=== PATIENT | female | born 1975 | race Caucasian/White ===

== ENCOUNTER 2016-03-26 12:42 | Emergency (ER) | payer OTHER ==
[~2016-03-26] VITALS: Ht 165.1 cm; Wt 70.0 kg
[~2016-03-26 12:42] MED LIST: IBUP-238 PO; PERC5TAB12 PO; PRENTAB72 PO; RANI150C PO; SENN1TAB11 PO
[2016-03-26 12:44] VITALS: BP 189/102; PULSE 82; RESP 12; TEMP 98; O2SAT 100
--- NOTE | 2016-03-26 13:50 | PD ---
HPI Chief Complaint: Headache Time Seen by Provider: 13:50 Travel History International Travel<30 days: No Contact w/Intl Traveler<30days: No Traveled to known affect area: No History of Present Illness HPI 40 year old female with history of HTN, COPD, and hyperthyroidism presents to emergency department for evaluation of elevated blood pressure with associated headache behind her left eye 3 days. States that she has recently been taken off of her hydrochlorothiazide as her ict business analyst agitated a beta gena to her medication regimen and wanted to "see how she did." She states she's been monitoring her blood pressure and it has slowly been creeping up. She states 3 days ago she woke up with a left sided headache primarily behind her eye. She states it's persisted and has waxed and waned minimally but this morning when she woke up she noticed the left eye was red. Denies any nausea or vomiting. No fever or chills. No chest tightness. No focal deficits or weakness. She has no other symptoms to report. PFSH Past Medical History Asthma: Yes Autoimmune Disease: No COPD: No Diminished Hearing: No Gastrointestinal Disorders: Yes (GASTRITIS, IBS) Hypertension: Yes Respiratory: Yes Ulcer: Yes ?: Not : 0 Past Surgical History Body Medical Devices: ibs, ovarian cysts, Ear Surgery: Yes (AT THE AGE OF 8, TUBES PLACED BILATERALLY) Pacemaker: No Tonsillectomy: Yes Tympanostomy Tube: Yes Social History Alcohol Use: No Tobacco Use: No Substance Use: No Allergies-Medications (Allergen,Severity, Reaction): Coded Allergies: Demerol (Verified Allergy, Severe, Nausea/Vomiting, 09/16/12) Ultram (Verified Allergy, Severe, Nausea/Vomiting, 09/16/12) RASH Reported Meds & Prescriptions Reported Meds & Active Scripts Active Reported Percocet (Oxycodone/Acetaminophen) 5 Mg/325 Mg Tab 1 Tab PO Q6HPRN Motrin (Ibuprofen) 800 Mg Tab 800 Mg PO Q8HPRN [place]-Colace (Senna/Docusate Sodium) 1 Tab Tab 1 Tab PO BIDPRN Zantac (Ranitidine HCl) 150 Mg Cap 150 Mg PO BID ( Vit W/ Ferrous Fumara) Tab 1 Tab PO DAILY Review of Systems Except as stated in HPI: all other systems reviewed are Neg Physical Exam Narrative GENERAL: Well-nourished, well-developed female patient, ambulatory no acute distress SKIN: Warm and dry. HEAD: Normocephalic. Atraumatic EYES: No scleral icterus. Ejection of the left sclera. EOMI. PERRL NECK: Supple, trachea midline. No JVD or lymphadenopathy. CARDIOVASCULAR: Regular rate and rhythm RESPIRATORY: Breath sounds equal bilaterally. No accessory muscle use. GASTROINTESTINAL: Abdomen soft, non-tender, nondistended. MUSCULOSKELETAL: No cyanosis, or edema. BACK: Nontender without obvious deformity. No CVA tenderness. NEUROLOGICAL: Awake and alert. Cranial nerves II through XII intact. Motor and sensory grossly within normal limits. Five out of 5 muscle strength in all muscle groups. Normal speech. Data Data Last Documented VS Vital Signs Date Time Temp Pulse Resp B/P Pulse Ox O2 Delivery O2 Flow Rate FiO2 03/26/16 18:40 67 16 165/88 99 03/26/16 17:17 Room Air 03/26/16 12:44 98.0 Orders Complete Blood Count With Diff (03/26/16 13:49) Basic Metabolic Panel (Bmp) (03/26/16 13:49) Coag Profile (03/26/16 13:49) Ct Brain W/O Iv Contrast(Rout) (03/26/16 ) Ed Urine Pregnancytest Poc (03/26/16 13:49) Ketorolac Inj (Toradol Inj) (03/26/16 17:15) Prochlorperazine Inj (Compazine Inj) (03/26/16 17:15) Diphenhydramine Inj (Benadryl Inj) (03/26/16 17:15) Labs Laboratory Tests Test 03/26/16 14:17 White Blood Count 10.4 TH/MM3 Red Blood Count 4.27 MIL/MM3 Hemoglobin 12.2 GM/DL Hematocrit 37.0 % Mean Corpuscular Volume 86.6 FL Mean Corpuscular Hemoglobin 28.7 PG Mean Corpuscular Hemoglobin 33.1 % Concent Red Cell Distribution Width 16.3 % Platelet Count 285 TH/MM3 Mean Platelet Volume 8.5 FL Neutrophils (%) (Auto) 60.4 % Lymphocytes (%) (Auto) 28.0 % Monocytes (%) (Auto) 9.9 % Eosinophils (%) (Auto) 0.9 % Basophils (%) (Auto) 0.8 % Neutrophils # (Auto) 6.3 TH/MM3 Lymphocytes # (Auto) 2.9 TH/MM3 Monocytes # (Auto) 1.0 TH/MM3 Eosinophils # (Auto) 0.1 TH/MM3 Basophils # (Auto) 0.1 TH/MM3 CBC Comment DIFF FINAL Differential Comment Prothrombin Time 10.8 SEC Prothromb Time International 1.0 RATIO Ratio Activated Partial 27.1 SEC Thromboplast Time Sodium Level 140 MEQ/L Potassium Level 3.5 MEQ/L Chloride Level 103 MEQ/L Carbon Dioxide Level 29.5 MEQ/L Anion Gap 8 MEQ/L Blood Urea Nitrogen 4 MG/DL Creatinine 0.74 MG/DL Estimat Glomerular Filtration 87 ML/MIN Rate Random Glucose 97 MG/DL Calcium Level 8.9 MG/DL MDM Medical Decision Making Medical Screen Exam Complete: Yes Emergency Medical Condition: Yes Medical Record Reviewed: Yes Differential Diagnosis Hypertension essential versus secondary versus headache, cluster versus tension versus sinus versus migraine headache versus intracranial hemorrhage Narrative Course 40 year-old female presents to the emergency department for evaluation. Patient appears without distress. There is injection of the left thigh where she describes the headache behind it for 3 days. She is hypertensive here in the emergency department. Workup is initiated in triage. Once a medical bed becomes available, patient will be transferred and care assumed by the provider. Condition: Stable Clary De Leon Mar 26, 2016 13:50
[2016-03-26 14:49] LABS: AUTOMATED NEUTROPHIL # 6.3 TH/MM3 (1.8-7.7); BASOPHIL # 0.1 TH/MM3 (0-0.2); BASOPHIL % 0.8 % (0.0-2.0); EOSINOPHIL # 0.1 TH/MM3 (0-0.4); EOSINOPHIL % 0.9 % (0.0-4.0); HEMO FLAGS DIFF FINAL; LYMPHOCYTE # 2.9 TH/MM3 (1.0-4.8); MEAN CELL VOLUME 86.6 FL (80.0-100.0); MEAN CORPUSCULAR HEMOGLOBIN 28.7 PG (27.0-34.0); MEAN CORPUSCULAR HGB CONC 33.1 % (32.0-36.0); MONO % 9.9 % (0.0-8.0); NEUT % 60.4 % (16.0-70.0); PLATELET COUNT 285 TH/MM3 (150-450); RED BLOOD COUNT 4.27 MIL/MM3 (4.00-5.30); RED CELL DISTRIBUTION WIDTH 16.3 % (11.6-17.2); WHITE BLOOD COUNT 10.4 TH/MM3 (4.0-11.0)
[2016-03-26 15:02] LABS: APTT (PATIENT) 27.1 SEC (24.3-30.1); BICARBONATE 29.5 MEQ/L (21.0-32.0); POTASSIUM 3.5 MEQ/L (3.5-5.1); PROTHROMBIN TIME - PATIENT 10.8 SEC (9.8-11.6)
[2016-03-26 15:43] VITALS: BP 184/93; PULSE 72; RESP 18; O2SAT 99
--- NOTE | 2016-03-26 16:23 | RADRPT ---
EXAM DATE/TIME: 03/26/2016 15:59 [facility] COMPARISON: No previous studies available for comparison. INDICATIONS : Severe migrain for three days,pain behind left eye,elavated blood pressure. RADIATION DOSE: 56.35 CTDIvol (mGy) MEDICAL HISTORY : Hypertension. Cardiovascular disease Hypothyroidism. SURGICAL HISTORY : None. ENCOUNTER: Initial ACUITY: 3 days PAIN SCALE: 5/10 LOCATION: cranial TECHNIQUE: Multiple contiguous axial images were obtained of the head. Using automated exposure control and adj ustment of the mA and/or kV according to patient size, radiation dose was kept as low as reasonably a chievable to obtain optimal diagnostic quality images. FINDINGS: CEREBRUM: The ventricles are normal for age. No evidence of midline shift, mass lesion, hemorrhage or acute in farction. No extra-axial fluid collections are seen. POSTERIOR FOSSA: The cerebellum and brainstem are intact. The 4th ventricle is midline. The cerebellopontine angle i s unremarkable. EXTRACRANIAL: The visualized portion of the orbits is intact. SKULL: The calvaria is intact. No evidence of skull fracture. CONCLUSION: Normal examination for a patient of this age. Luis Hazel MD on March 26, 2016 at 16:21 Board Certified Radiologist. This report was verified electronically.
[2016-03-26] MEDS ORDERED: KETOROLAC TROMETHAMINE 60 MG/2 ML (IM) VIAL IM ONE (17:15)
[2016-03-26] MEDS ORDERED: PROCHLORPERAZINE INJ 10 MG/2 ML VIAL IM ONE (17:15)
[2016-03-26] MEDS ORDERED: diphenhydrAMINE HCL 50 MG/ML VIAL IM ONE (17:15)
[2016-03-26 17:17] VITALS: BP 174/101; PULSE 66; RESP 18; O2SAT 100
--- NOTE | 2016-03-26 18:08 | PD ---
Physical Exam Date Seen by Provider: Mar 26, 2016 Time Seen by Provider: 17:10 Narrative Full history and physical examination please see previous provider's note. I assumed care of this patient when she was transferred to her room. She continues to complain of a headache which is more so behind her left eye. She does report photophobia but denies any nausea, chest pain, shortness of breath. 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 She states that her insurance has changed many times she is unable to follow-up with her primary. She does state that her skid strapper recently adjusted her blood pressure medications. She does report compliance with these medications. Data Data Last Documented VS Vital Signs Date Time Temp Pulse Resp B/P Pulse Ox O2 Delivery O2 Flow Rate FiO2 03/26/16 18:40 67 16 165/88 99 03/26/16 17:17 Room Air 03/26/16 12:44 98.0 Orders Complete Blood Count With Diff (03/26/16 13:49) Basic Metabolic Panel (Bmp) (03/26/16 13:49) Coag Profile (03/26/16 13:49) Ct Brain W/O Iv Contrast(Rout) (03/26/16 ) Ed Urine Pregnancytest Poc (03/26/16 13:49) Ketorolac Inj (Toradol Inj) (03/26/16 17:15) Prochlorperazine Inj (Compazine Inj) (03/26/16 17:15) Diphenhydramine Inj (Benadryl Inj) (03/26/16 17:15) Labs Laboratory Tests Test 03/26/16 14:17 White Blood Count 10.4 TH/MM3 Red Blood Count 4.27 MIL/MM3 Hemoglobin 12.2 GM/DL Hematocrit 37.0 % Mean Corpuscular Volume 86.6 FL Mean Corpuscular Hemoglobin 28.7 PG Mean Corpuscular Hemoglobin 33.1 % Concent Red Cell Distribution Width 16.3 % Platelet Count 285 TH/MM3 Mean Platelet Volume 8.5 FL Neutrophils (%) (Auto) 60.4 % Lymphocytes (%) (Auto) 28.0 % Monocytes (%) (Auto) 9.9 % Eosinophils (%) (Auto) 0.9 % Basophils (%) (Auto) 0.8 % Neutrophils # (Auto) 6.3 TH/MM3 Lymphocytes # (Auto) 2.9 TH/MM3 Monocytes # (Auto) 1.0 TH/MM3 Eosinophils # (Auto) 0.1 TH/MM3 Basophils # (Auto) 0.1 TH/MM3 CBC Comment DIFF FINAL Differential Comment Prothrombin Time 10.8 SEC Prothromb Time International 1.0 RATIO Ratio Activated Partial 27.1 SEC Thromboplast Time Sodium Level 140 MEQ/L Potassium Level 3.5 MEQ/L Chloride Level 103 MEQ/L Carbon Dioxide Level 29.5 MEQ/L Anion Gap 8 MEQ/L Blood Urea Nitrogen 4 MG/DL Creatinine 0.74 MG/DL Estimat Glomerular Filtration 87 ML/MIN Rate Random Glucose 97 MG/DL Calcium Level 8.9 MG/DL MDM Medical Record Reviewed: Yes Supervised Visit with KWESI: No Interpretation(s) Vital Signs Date Time Temp Pulse Resp B/P Pulse Ox O2 Delivery O2 Flow Rate FiO2 03/26/16 17:17 66 18 174/101 100 Room Air 03/26/16 15:43 72 18 184/93 99 03/26/16 12:44 98.0 82 12 189/102 100 Room Air Differential Diagnosis Hypertensive urgency versus migraine versus cluster headache versus tension- type headache versus hemorrhage versus other Narrative Course Patient's 40-year-old female who presented to emergency department for evaluation of a headache. She is protocoled in triage, she continued to have a headache when she was brought back to her room. Medications were ordered to abort the headache. Patient's blood pressure was rechecked and was somewhat improved from prior. Will reassess vital signs as well as headache symptoms. CBC, chemistry, coags are reviewed and unremarkable. CT scan of the brain was negative for acute abnormalities and was normal for patient's age. She reports improvement in her headache symptoms with medication administration. Her blood pressure was reassessed as well and is normalizing at 165/88. Patient was strongly advised to call her skid strapper in the morning to schedule an appointment. She verbalized understanding of need for follow-up. She was also given strict return precautions. She verbalized understanding of these instructions. Diagnosis Primary Impression: Headache Qualified Code: R51 - Nonintractable headache, unspecified chronicity pattern , unspecified headache type Additional Impression: Hypertension Qualified Code: I10 - Essential hypertension Referrals: Social Services Designee 1 day Primary Care Physician Patient Instructions: Acute Headache (ED), General Instructions, Hypertension ( ED) Additional Instruction: Follow-up with your primary doctor Follow-up with your skid strapper Return to emergency department for any new or worsening symptoms Med/Other Pt SpecificInfo: No Change to Meds Disposition: 01 DISCHARGE HOME Condition: Stable Radha Levy Mar 26, 2016 18:08
[2016-03-26 18:40] VITALS: BP 165/88
== END 2016-03-26 19:20 | disposition home or self-care (01) ==
LOC: NEPB 12:42
DX: R51 Headache (principal); I10 Essential (primary) hypertension; E05.90 Thyrotoxicosis, unspecified without thyrotoxic crisis or storm; J44.9 Chronic obstructive pulmonary disease, unspecified; J45.909 Unspecified asthma, uncomplicated
CPT/HCPCS: 70450; 80048; 84703; 85025; 85610; 85730; 96372; 99284; J0780; J1200; J1885

== ENCOUNTER 2016-10-31 10:56 | Emergency (ER) | payer OTHER ==
[~2016-10-31] VITALS: Ht 165.1 cm; Wt 65.0 kg
[2016-10-31 10:57] VITALS: BP 117/68; PULSE 130; RESP 20; TEMP 99.3; O2SAT 99
[2016-10-31] MEDS ORDERED: SODIUM CHLORIDE 0.9% FLUSH 10 ML FLUSH IVF PRN (11:15)
--- NOTE | 2016-10-31 11:28 | PD ---
HPI Chief Complaint: Control Room Technician Problem/Complaint Time Seen by Provider: 11:06 Travel History International Travel<30 days: No Contact w/Intl Traveler<30days: No Traveled to known affect area: No History of Present Illness HPI 40-year-old female presents the emergency department with one week history of intermittent vaginal spotting. Patient states she was seen in [facility] 2 days ago, and had ultrasound which showed the fetus approximate 6 weeks by measurements, and "too close to the cervix". Patient also noted that she had elevated liver function tests which they wanted to admit her for. She denies alcohol, or drug use. She denies history of hepatitis in the past. Patient states she did have eclampsia late in the with her previous of her 4-year-old. Patient was previously taking Lipitor, as well as 2 other blood pressure medications. She has stopped those and she knew she was . She is only taking labetalol and Zofran. She states she is somewhat crampy in the lower abdominal region but no other significant findings. Patient is allergic to meperidine and tramadol. PFSH Past Medical History Asthma: Yes Autoimmune Disease: No Cardiovascular Problems: Yes COPD: No Diminished Hearing: No Gastrointestinal Disorders: Yes (GASTRITIS, IBS) Hypertension: Yes Respiratory: Yes Ulcer: Yes ?: : 0 Past Surgical History Body Medical Devices: ibs, ovarian cysts, Ear Surgery: Yes (AT THE AGE OF 8, TUBES PLACED BILATERALLY) Pacemaker: No Tonsillectomy: Yes Tympanostomy Tube: Yes Social History Alcohol Use: No Tobacco Use: No Substance Use: No Allergies-Medications (Allergen,Severity, Reaction): Coded Allergies: meperidine (Unverified Allergy, Severe, Nausea/Vomiting, 10/08/16) tramadol (Unverified Allergy, Severe, Nausea/Vomiting, 10/08/16) RASH Reported Meds & Prescriptions Reported Meds & Active Scripts Active Reported Percocet (Oxycodone/Acetaminophen) 5 Mg/325 Mg Tab 1 Tab PO Q6HPRN Motrin (Ibuprofen) 800 Mg Tab 800 Mg PO Q8HPRN Louisa-Colace (Senna/Docusate Sodium) 1 Tab Tab 1 Tab PO BIDPRN Zantac (Ranitidine HCl) 150 Mg Cap 150 Mg PO BID ( Vit W/ Ferrous Fumara) Tab 1 Tab PO DAILY Review of Systems Except as stated in HPI: all other systems reviewed are Neg General / Constitutional: No: Fever Eyes: No: Visual changes HENT: No: Headaches Cardiovascular: No: Chest Pain or Discomfort Respiratory: No: Shortness of Breath Gastrointestinal: No: Abdominal Pain Genitourinary: Positive: Pelvic Pain, Vaginal Bleeding, No: Dysuria, Discharge Musculoskeletal: No: Pain Skin: No Rash Neurologic: No: Weakness Psychiatric: No: Depression Endocrine: No: Polydipsia Hematologic/Lymphatic: No: Easy Bruising Physical Exam Narrative GENERAL: Patient appears in no acute distress. SKIN: Warm and dry. HEAD: Atraumatic. Normocephalic. EYES: Pupils equal and round. No scleral icterus. No injection or drainage. ENT: No nasal bleeding or discharge. Mucous membranes pink and moist. Pharynx is clear. Airway is patent. NECK: Trachea midline. Supple and nontender. CARDIOVASCULAR: Regular rate and rhythm. RESPIRATORY: No accessory muscle use. Clear to auscultation. Breath sounds equal bilaterally. GASTROINTESTINAL: Abdomen soft, non-tender, nondistended. Hepatic and splenic margins not palpable. MUSCULOSKELETAL: Extremities without clubbing, cyanosis, or edema. No obvious deformities. NEUROLOGICAL: Awake and alert. No obvious cranial nerve deficits. Motor grossly within normal limits. Five out of 5 muscle strength in the arms and legs. Normal speech. PSYCHIATRIC: Appropriate mood and affect; insight and judgment normal. Data Data Last Documented VS Vital Signs Date Time Temp Pulse Resp B/P (MAP) Pulse Ox O2 Delivery O2 Flow Rate FiO2 10/31/16 15:02 62 18 127/68 (87) 99 Room Air 10/31/16 10:57 99.3 Orders Orders Beta Hcg (Quant/Titer) (10/31/16 11:11) Complete Blood Count With Diff (10/31/16 11:11) Comprehensive Metabolic Panel (10/31/16 11:11) Complete Rh (10/31/16 11:11) Us Pelvis (Ques Pr/Ect)W Trans (10/31/16 ) Urinalysis - C+S If Indicated (10/31/16 11:11) Iv Access Insert/Monitor (10/31/16 11:11) Ecg Monitoring (10/31/16 11:11) Sodium Chloride 0.9% Flush (Ns Flush) (10/31/16 11:15) Labs Laboratory Tests Test 10/31/16 11:28 10/31/16 11:32 Urine Color DARK-YELLOW Urine Turbidity HAZY Urine pH 5.5 Urine Specific [place] 1.024 Urine Protein TRACE mg/dL Urine Glucose (UA) NEG mg/dL Urine Ketones NEG mg/dL Urine Occult Blood SMALL Urine Nitrite NEG Urine Bilirubin SMALL Urine Urobilinogen 4.0 MG/DL Urine Leukocyte Esterase NEG Urine RBC 5 /hpf Urine WBC 1 /hpf Urine Squamous Epithelial Cells 3 /hpf Urine Mucus MANY /lpf Microscopic Urinalysis Comment CULT NOT INDICATED White Blood Count 8.2 TH/MM3 Red Blood Count 3.91 MIL/MM3 Hemoglobin 11.4 GM/DL Hematocrit 34.2 % Mean Corpuscular Volume 87.4 FL Mean Corpuscular Hemoglobin 29.2 PG Mean Corpuscular Hemoglobin Concent 33.4 % Red Cell Distribution Width 20.2 % Platelet Count 310 TH/MM3 Mean Platelet Volume 8.5 FL Neutrophils (%) (Auto) 53.2 % Lymphocytes (%) (Auto) 22.4 % Monocytes (%) (Auto) 22.0 % Eosinophils (%) (Auto) 1.6 % Basophils (%) (Auto) 0.8 % Neutrophils # (Auto) 4.4 TH/MM3 Lymphocytes # (Auto) 1.8 TH/MM3 Monocytes # (Auto) 1.8 TH/MM3 Eosinophils # (Auto) 0.1 TH/MM3 Basophils # (Auto) 0.1 TH/MM3 CBC Comment AUTO DIFF Differential Total Cells Counted 100 Neutrophils % (Manual) 53 % Band Neutrophils % 4 % Lymphocytes % 29 % Monocytes % 14 % Neutrophils # (Manual) 4.7 TH/MM3 Nucleated Red Blood Cells 1 /100 WBC Differential Comment FINAL DIFF MANUAL Platelet Estimate NORMAL Platelet Morphology Comment NORMAL Blood Urea Nitrogen 8 MG/DL Creatinine 0.84 MG/DL Random Glucose 119 MG/DL Total Protein 7.6 GM/DL Albumin 3.8 GM/DL Calcium Level 8.4 MG/DL Alkaline Phosphatase 264 U/L Aspartate Amino Transf (AST/SGOT) 418 U/L Alanine Aminotransferase (ALT/SGPT) 711 U/L Total Bilirubin 1.3 MG/DL Sodium Level 138 MEQ/L Potassium Level 3.9 MEQ/L Chloride Level 105 MEQ/L Carbon Dioxide Level 25.6 MEQ/L Anion Gap 7 MEQ/L Estimat Glomerular Filtration Rate 75 ML/MIN Human Chorionic Gonadotropin, Quant 42810 MIU/ML [facility] Medical Decision Making Medical Screen Exam Complete: Yes Emergency Medical Condition: Yes Differential Diagnosis Threatened . Spotting in . History of elevated liver function tests. Narrative Course Patient is medically stable at time of exam. Labs ordered including CBC, CMP, serum hCG, urinalysis. Pelvic ultrasound was ordered. IV access is obtained. CBC shows no significant leukocytosis, mild anemia with hemoglobin 11.4, hematocrit 34.2. CMP has normal electrolytes as well as BUN and creatinine. Random glucose is slightly elevated at 119, calcium is 8.4, bili is 1.3. AST is 418, ALT is 711. Alkaline phosphatase is 264. Serum hCG quantitative is 12,837. Urinalysis shows small occult blood. Small bilirubin, but no signs of infection. Pelvic ultrasound shows probable threatened . Per radiologist. I discussed the findings with the patient who knows that she needs to follow up regarding her liver function tests, requesting to leave AMA at this time. The patient does seem to be medically stable in terms of her vitals and exam, and she will follow-up as discussed. Recommend repeat serum hCG in 2 days to follow to show improvement. Patient is warm to follow up if symptoms worsen or vaginal bleeding becomes significantly worse as discussed. Diagnosis Primary Impression: Elevated LFTs Additional Impression: Threatened in early Referrals: Cryptozoologist [facility] Patient Instructions: General Instructions, Threatened Miscarriage (ED) Disposition: 07 AGAINST MEDICAL ADVICE Condition: Stable Emir Espino Oct 31, 2016 11:27
[2016-10-31 11:48] LABS: AUTOMATED NEUTROPHIL # 4.4 TH/MM3 (1.8-7.7); BASOPHIL # 0.1 TH/MM3 (0-0.2); BASOPHIL % 0.8 % (0.0-2.0); EOSINOPHIL # 0.1 TH/MM3 (0-0.4); EOSINOPHIL % 1.6 % (0.0-4.0); HEMATOCRIT 34.2 % (35.0-46.0); LYMPH % 22.4 % (9.0-44.0); LYMPHOCYTE # 1.8 TH/MM3 (1.0-4.8); MEAN CELL VOLUME 87.4 FL (80.0-100.0); MEAN CORPUSCULAR HEMOGLOBIN 29.2 PG (27.0-34.0); MEAN CORPUSCULAR HGB CONC 33.4 % (32.0-36.0); NEUT % 53.2 % (16.0-70.0); PLATELET COUNT 310 TH/MM3 (150-450); RED BLOOD COUNT 3.91 MIL/MM3 (4.00-5.30); RED CELL DISTRIBUTION WIDTH 20.2 % (11.6-17.2); WHITE BLOOD COUNT 8.2 TH/MM3 (4.0-11.0)
[2016-10-31 11:51] VITALS: BP 119/63; PULSE 98; RESP 18; O2SAT 98
[2016-10-31 11:59] LABS: BLOOD, URINE SMALL (NEG); COMMENT (UR) CULT NOT INDICATED; CULTURE IF INDICATED CULT NOT INDICATED; GLUCOSE,URINE NEG (NEG); KETONE, URINE NEG (NEG); MUCUS URINE MANY /lpf (OCC); NITRITE,URINE NEG (NEG); PH, URINE 5.5 (5.0-8.5); SQUAMOUS EPITHELIAL CELL URINE 3 /hpf (0-5); URINE COLOR DARK-YELLOW (YELLW/STRAW)
[2016-10-31 12:02] LABS: HEMO FLAGS AUTO DIFF
[2016-10-31 12:28] LABS: ALKALINE PHOSPHATASE 264 U/L (45-117); ALT (GPT) 711 U/L (10-53); BETA HCG QUANT 12837 MIU/ML (0-5); TOTAL BILIRUBIN ADULT 1.3 MG/DL (0.2-1.0)
[2016-10-31 12:33] LABS: ANION GAP 7 MEQ/L (5-15); AST (GOT) 418 U/L (15-37); BICARBONATE 25.6 MEQ/L (21.0-32.0); BLOOD UREA NITROGEN 8 MG/DL (7-18); CHLORIDE 105 MEQ/L (98-107); GLOMERULAR FILTRATION RATE 75 ML/MIN (>89); SODIUM (NA) 138 MEQ/L (136-145)
[2016-10-31 12:34] LABS: POTASSIUM 3.9 MEQ/L (3.5-5.1)
[2016-10-31 12:41] LABS: BANDS 4 % (0-6); CORRECTED NUCLEATED RBC 1 /100 WBC (0-0); NEUTROPHIL # MANUAL DIFF 4.7 TH/MM3 (1.8-7.7); POLYS (SEG NEUTROPHILS) 53 % (16-70); WBC DIFF SAMPLE 100
[2016-10-31 12:42] LABS: PLATELET ESTIMATE SMEAR NORMAL (NORMAL); PLATELET MORPHOLOGY NORMAL (NORMAL); SCAN/DIFF FINAL DIFF MANUAL
[2016-10-31 15:02] VITALS: BP 127/68; PULSE 62; RESP 18; O2SAT 99
--- NOTE | 2016-10-31 15:29 | RADRPT ---
EXAM DATE/TIME: 10/31/2016 13:46 [facility] COMPARISON: No previous studies available for comparison. INDICATIONS : Cramping and spotting for 3 days. LAB(S): Beta-hC,837 MEDICAL HISTORY : . Hypertension. Gastritis. IBS. Ulcer. Asthma. Cervical dsyplasia. SURGICAL HISTORY : Tonsillectomy. Bilateral tympanostomy tubes. ENCOUNTER: Initial ACUITY: 3 days PAIN SCORE: 0/10 LOCATION: Bilateral pelvis MEASUREMENTS: LEFT OVARY: 2.7 x 1.8 x 1.6 cm UTERUS: 11.0 x 6.4 x 5.5 cm ENDOMETRIAL STRIPE: >20 mm RIGHT OVARY: 4.1 x 2.7 x 2.0 cm FREE FLUID: No CROWN RUMP LENGTH: 0.4 cm = 6 WKS 1 DAYS FHR: Not visualized BPM FINDINGS: There is a saclike structure in the lower uterine segment with a pole and a large yolk sac pres ent. No heart tones are identified. There is echogenic material in the uterine fundus character istic of hemorrhage. No adnexal masses are identified. No free fluid is identified. CONCLUSION: 1. Findings characteristic of in progress Frankie Casanova MD on October 31, 2016 at 15:23 Board Certified Radiologist. This report was verified electronically.
== END 2016-10-31 16:07 | disposition left against medical advice (07) ==
LOC: NEPC 10:56
DX: O20.0 Threatened abortion (principal); R79.89 Other specified abnormal findings of blood chemistry; O09.511 Supervision of elderly primigravida, first trimester; Z3A.01 Less than 8 weeks gestation of pregnancy
CPT/HCPCS: 76700; 76817; 80053; 81001; 84702; 85007; 85027; 86901

== ENCOUNTER 2016-11-18 11:13 | Inpatient (IN) | payer OTHER ==
[~2016-11-18] VITALS: Ht 165.1 cm; Wt 68.0 kg
[2016-11-18 11:15] VITALS: BP 129/83; PULSE 84; RESP 15; TEMP 98.4; O2SAT 99
[2016-11-18 11:54] LABS: AUTOMATED NEUTROPHIL # 3.8 TH/MM3 (1.8-7.7); BASOPHIL # 0.2 TH/MM3 (0-0.2); BASOPHIL % 2.2 % (0.0-2.0); EOSINOPHIL # 0.1 TH/MM3 (0-0.4); EOSINOPHIL % 1.8 % (0.0-4.0); HEMATOCRIT 32.1 % (35.0-46.0); HEMO FLAGS DIFF FINAL; LYMPH % 22.7 % (9.0-44.0); LYMPHOCYTE # 1.6 TH/MM3 (1.0-4.8); MEAN CELL VOLUME 88.6 FL (80.0-100.0); MEAN CORPUSCULAR HEMOGLOBIN 29.2 PG (27.0-34.0); MEAN CORPUSCULAR HGB CONC 32.9 % (32.0-36.0); MONO % 18.1 % (0.0-8.0); NEUT % 55.2 % (16.0-70.0); PLATELET COUNT 246 TH/MM3 (150-450); RED BLOOD COUNT 3.62 MIL/MM3 (4.00-5.30); RED CELL DISTRIBUTION WIDTH 22.2 % (11.6-17.2); WHITE BLOOD COUNT 6.9 TH/MM3 (4.0-11.0)
[2016-11-18 12:04] LABS: BLOOD, URINE NEG (NEG); GLUCOSE,URINE NEG (NEG); KETONE, URINE NEG (NEG); NITRITE,URINE NEG (NEG); SQUAMOUS EPITHELIAL CELL URINE <1 /hpf (0-5); URINE COLOR YELLOW (YELLW/STRAW)
[2016-11-18 12:07] LABS: COMMENT (UR) CULT NOT INDICATED; CULTURE IF INDICATED CULT NOT INDICATED
[2016-11-18 12:13] VITALS: BP 103/63; PULSE 77; RESP 19; TEMP 98.4; O2SAT 98
[2016-11-18 12:16] LABS: ANION GAP 6 MEQ/L (5-15); BICARBONATE 25.7 MEQ/L (21.0-32.0); BLOOD UREA NITROGEN 6 MG/DL (7-18); CHLORIDE 102 MEQ/L (98-107); GLOMERULAR FILTRATION RATE 77 ML/MIN (>89); POTASSIUM 3.3 MEQ/L (3.5-5.1); SODIUM (NA) 134 MEQ/L (136-145)
[2016-11-18 12:34] LABS: ALKALINE PHOSPHATASE 263 U/L (45-117); ALT (GPT) 961 U/L (10-53); AST (GOT) 1179 U/L (15-37); BETA HCG QUANT 1431 MIU/ML (0-5)
[2016-11-18 12:36] LABS: TOTAL BILIRUBIN ADULT 9.7 MG/DL (0.2-1.0)
[2016-11-18 13:17] LABS: INTERNATIONAL NORMALIZED RATIO 1.1 RATIO
--- NOTE | 2016-11-18 13:19 | PD ---
HPI Chief Complaint: Medical Clearance Time Seen by Provider: 12:26 Travel History International Travel<30 days: No Contact w/Intl Traveler<30days: No Traveled to known affect area: No History of Present Illness HPI Patient 40-year-old female presents emergency department for evaluation of jaundice. She was here 2 weeks ago was diagnosed with probable miscarriage at that time her LFTs were minimally elevated and she was offered admission but had to go home and take care of her 4-year-old son. The patient states since then she noticed her yellow skin tone his gradually worsened and presents emergency primary for evaluation. She complains of a vague cramping in the right upper quadrant but no nausea no vomiting. She states she's actually had some pale and even yellow-colored stools. Denies a history of Tylenol ingestion alcohol abuse or IV drug abuse. Symptoms present for the past few weeks, gradually worsening, PFSH Past Medical History Asthma: Yes Autoimmune Disease: No Cardiovascular Problems: Yes High Cholesterol: Yes COPD: Yes Coronary Artery Disease: Yes Diminished Hearing: No Gastrointestinal Disorders: Yes (GASTRITIS, IBS) Genitourinary: No Hypertension: Yes Respiratory: Yes Immunizations Current: Yes Ulcer: Yes Influenza Vaccination: No ?: Not LMP: NOW : 0 Past Surgical History Body Medical Devices: ibs, ovarian cysts, Section: Yes Ear Surgery: Yes (AT THE AGE OF 8, TUBES PLACED BILATERALLY) Pacemaker: No Tonsillectomy: Yes Tympanostomy Tube: Yes Social History Alcohol Use: No Tobacco Use: No (2 ppd before begin ) Substance Use: No Allergies-Medications (Allergen,Severity, Reaction): Coded Allergies: meperidine (Unverified Allergy, Severe, Nausea/Vomiting, 11/18/16) tramadol (Unverified Allergy, Severe, Nausea/Vomiting, 11/18/16) RASH Reported Meds & Prescriptions Reported Meds & Active Scripts Active No Active Prescriptions or Reported Medications Review of Systems Except as stated in HPI: all other systems reviewed are Neg Physical Exam Narrative GENERAL: Well-developed well-nourished, clearly icteric and jaundiced. Appears quite well and in no distress otherwise. SKIN: Focused skin assessment warm/dry. HEAD: Atraumatic. Normocephalic. EYES: Pupils equal and round. Positive scleral icterus. No injection or drainage. ENT: No nasal bleeding or discharge. Mucous membranes pink and moist. NECK: Trachea midline. No JVD. CARDIOVASCULAR: Regular rate and rhythm. No murmur appreciated. RESPIRATORY: No accessory muscle use. Clear to auscultation. Breath sounds equal bilaterally. GASTROINTESTINAL: Abdomen soft, non-tender, nondistended. Hepatic and splenic margins not palpable. MUSCULOSKELETAL: No obvious deformities. No clubbing. No cyanosis. No edema. NEUROLOGICAL: Awake and alert. No obvious cranial nerve deficits. Motor grossly within normal limits. Normal speech. PSYCHIATRIC: Appropriate mood and affect; insight and judgment normal. Data Data Last Documented VS Vital Signs Date Time Temp Pulse Resp B/P (MAP) Pulse Ox O2 Delivery O2 Flow Rate FiO2 11/18/16 14:03 72 16 99/60 (73) 99 Room Air 11/18/16 12:13 98.4 Orders Orders Complete Blood Count With Diff (11/18/16 11:19) Comprehensive Metabolic Panel (11/18/16 11:19) Urinalysis - C+S If Indicated (11/18/16 11:19) Beta Hcg (Quant/Titer) (11/18/16 11:19) Act Partial Throm Time (Ptt) (11/18/16 12:47) Prothrombin Time / Inr (Pt) (11/18/16 12:47) Lipase (11/18/16 12:49) Monoscreen (11/18/16 13:00) Us Abdomen Gallbladder (11/18/16 13:00) Us Pelvis (Ques Preg/Ectopic) (11/18/16 13:00) Admit Order (Ed Use Only) (11/18/16 ) Labs Laboratory Tests Test 11/18/16 11:35 11/18/16 12:55 11/18/16 13:05 White Blood Count 6.9 TH/MM3 Red Blood Count 3.62 MIL/MM3 Hemoglobin 10.5 GM/DL Hematocrit 32.1 % Mean Corpuscular Volume 88.6 FL Mean Corpuscular Hemoglobin 29.2 PG Mean Corpuscular Hemoglobin Concent 32.9 % Red Cell Distribution Width 22.2 % Platelet Count 246 TH/MM3 Mean Platelet Volume 9.0 FL Neutrophils (%) (Auto) 55.2 % Lymphocytes (%) (Auto) 22.7 % Monocytes (%) (Auto) 18.1 % Eosinophils (%) (Auto) 1.8 % Basophils (%) (Auto) 2.2 % Neutrophils # (Auto) 3.8 TH/MM3 Lymphocytes # (Auto) 1.6 TH/MM3 Monocytes # (Auto) 1.3 TH/MM3 Eosinophils # (Auto) 0.1 TH/MM3 Basophils # (Auto) 0.2 TH/MM3 CBC Comment DIFF FINAL Differential Comment Urine Color YELLOW Urine Turbidity CLEAR Urine pH 6.0 Urine Specific [place] 1.003 Urine Protein NEG mg/dL Urine Glucose (UA) NEG mg/dL Urine Ketones NEG mg/dL Urine Occult Blood NEG Urine Nitrite NEG Urine Bilirubin SMALL Urine Urobilinogen LESS THAN 2.0 MG/DL Urine Leukocyte Esterase NEG Urine RBC LESS THAN 1 /hpf Urine WBC 1 /hpf Urine Squamous Epithelial Cells <1 /hpf Microscopic Urinalysis Comment CULT NOT INDICATED Blood Urea Nitrogen 6 MG/DL Creatinine 0.83 MG/DL Random Glucose 129 MG/DL Total Protein 6.9 GM/DL Albumin 3.1 GM/DL Calcium Level 8.3 MG/DL Alkaline Phosphatase 263 U/L Aspartate Amino Transf (AST/SGOT) 1179 U/L Alanine Aminotransferase (ALT/SGPT) 961 U/L Total Bilirubin 9.7 MG/DL Sodium Level 134 MEQ/L Potassium Level 3.3 MEQ/L Chloride Level 102 MEQ/L Carbon Dioxide Level 25.7 MEQ/L Anion Gap 6 MEQ/L Estimat Glomerular Filtration Rate 77 ML/MIN Human Chorionic Gonadotropin, Quant 1431 MIU/ML Urine Opiates Screen NEG Urine Barbiturates Screen NEG Urine Amphetamines Screen NEG Urine Benzodiazepines Screen NEG Urine Cocaine Screen NEG Urine Cannabinoids Screen POS Prothrombin Time 12.0 SEC Prothromb Time International Ratio 1.1 RATIO Activated Partial Thromboplast Time 28.0 SEC Lipase 155 U/L Tumor Marker Alpha Fetoprotein 4.6 NG/ML Monoscreen NEG MDM Medical Decision Making Medical Screen Exam Complete: Yes Emergency Medical Condition: Yes Differential Diagnosis Acute liver failure, jaundice, obstructive jaundice, hepatobiliary disease. Narrative Course Patient roomed emergency department, labs show increasing AST and ALT flu a few weeks ago, her hCG is decline significant only, ultrasound of the abdomen is showing gallbladder wall thickening without any other signs or cholecystitis. Enlarged liver. Ultrasound of her uterus shows signs with continuing miscarriage. Patient did receive Chuck on her last admission. This time with her worsening LFTs I recommended her for admission and she is agreeable. Patient was discussed with Dr. Wade who is agreeable to admit to the resident service. Diagnosis Primary Impression: Incomplete Additional Impression: Acute liver failure Admitting Information Admitting Physician Requests: Admit Scripts No Active Prescriptions or Reported Meds Condition: Sean Campos MD Nov 18, 2016 13:18
[2016-11-18 14:03] VITALS: BP 99/60; PULSE 72; RESP 16; O2SAT 99
--- NOTE | 2016-11-18 14:23 | RADRPT ---
EXAM DATE/TIME: 11/18/2016 13:21 [facility] COMPARISON: No previous studies available for comparison. INDICATIONS : Right upper quadrant pain. MEDICAL HISTORY : Hypercholesterolemia. Hypertension. Chronic obstructive pulmonary disease. CAD. Ulcer. Asthma. Hypert hyroidism. Cervical dysplasia. SURGICAL HISTORY : Tonsillectomy. section. Tympanostomy tube. ENCOUNTER: Initial ACUITY: 1 day PAIN SCORE: 0/10 LOCATION: Right upper quadrant MEASUREMENTS: LIVER: 18.3 cm length COMMON DUCT: 2 mm RIGHT KIDNEY: 11.6 x 6.1 x 4.8 cm FINDINGS: LIVER: Liver is enlarged with diffusely increased echogenicity. No intrahepatic ductal dilatation or focal m ass. COMMON DUCT: No intraluminal mass or stone visualized. GALLBLADDER: Gallbladder is contracted with diffuse gallbladder wall thickening measuring up to 10 mm. No signific ant pericholecystic fluid, gallstones or sonographic Villegas's sign. PANCREAS: The visualized portions are within normal limits. RIGHT KIDNEY: No evidence of hydronephrosis, stone, or mass. CONCLUSION: 1. Enlarged echogenic liver consistent with the hepatic steatosis versus medical liver disease. 2. Gallbladder is contracted which accentuates the gallbladder wall. However, there is diffuse gallbl adder wall thickening with no pericholecystic fluid, stones or sonographic Villegas sign. Gallbladder w all thickening is commonly seen in patient's with underlying liver disease. If there is significant c ontinued clinical concern, a HIDA scan may be performed to evaluate for cystic duct patency. Jose Yanes MD on November 18, 2016 at 14:18 Board Certified Radiologist. This report was verified electronically.
--- NOTE | 2016-11-18 14:27 | RADRPT ---
EXAM DATE/TIME: 11/18/2016 13:34 [facility] COMPARISON: No previous studies available for comparison. INDICATIONS : Pelvic pain and vaginal bleeding. LAB(S): Beta-hC MEDICAL HISTORY : . Hypercholesterolemia. Chronic obstructive pulmonary disease. Hypertension. Hyperthyroidism . Ulcer. Asthma. Cervical dysplasia. SURGICAL HISTORY : section. Tonsillectomy. Tympanostomy tube. ENCOUNTER: Subsequent ACUITY: 1 month PAIN SCORE: 0/10 LOCATION: Bilateral pelvis. MEASUREMENTS: UTERUS: 11.2 x 5.2 x 4.2 cm ENDOMETRIAL STRIPE: 10 mm RIGHT OVARY: 2.6 x 2.4 x 2.0 cm LEFT OVARY: 3.3 x 2.2 x 1.8 cm FREE FLUID: No FINDINGS: There is an irregular sac like structure in the lower uterine segment which may reflect in lamberto gay. The ovaries are normal in size and shape without evidence of focal mass. No adnexal masses a re identified. No free fluid is identified. CONCLUSION: 1. Findings most characteristic of in progress Frankie Casanova MD on November 18, 2016 at 14:23 Board Certified Radiologist. This report was verified electronically.
--- NOTE | 2016-11-18 16:37 | PD.CONS ---
HPI History of Present Illness This is a 40 year old female patient who presented to the emergency room for evaluation of generalized fatigue, pruritis, decreased appetite, nausea, abdominal discomfort, and jaundice. She was recently hospitalized on 10/31/16 for vaginal spotting. At that time, she had recently been seen at [facility] and had an ultrasound which showed the fetus approximate 6 weeks by measurement and was told that it was "too close to the cervix" and that she was having a miscarriage. She was also told that she had elevated LFTs, which they wanted to admit her for. However, she could not stay because she did not have childcare for son and therefore she was discharged home. She then developed spotting cramping and was found to be having a miscarriage. Hospitalization was recommended, but she declined, because she had to care for her child. However, she started having generalized fatigue, pruritis, decreased appetite, nausea, abdominal discomfort, and jaundice. She reports that she had actually been feeling fatigue and "sick" for a few weeks before she found out she was , but this gradually has been worsening over the past few weeks. She has had intermittent RUQ pain for a few years saying that "my liver hurts." She cannot identify any aggravating or alleviating factors, but states she has been told in the past that she had gallbladder issues, but it was not "bad enough" to have surgery. She reports that she always has RUQ tenderness. Over the past few days, this has been a constant dull ache in the mid abdomen and her RUQ, radiating to her back. She denies any constipation or diarrhea. She does note that her bowel movements are a pale patel color. She woke up last Friday and noticed her sclera was jaundiced and she noticed her skin has had a yellowish tint the past few days. She also has associated pruritis the past few days. She denies any prior history of liver disease in herself or family members. She denies any history of hepatitis. She does have a new sexual partner about 6 weeks ago. She does not know if he has any history of hepatitis. She has taken "a lot of tyelnol and ibuprofen in my life," but nothing recently. She was on a statin, but quit this 6 weeks ago when she found out she was . She also stopped her high blood pressure medicines when she found out she was and she was started on labetolol, but stopped this when she was told that she was having a miscarriage. She takes multivitamins, biotin, and B12, but no herbal supplements. She has 4 tattoos, the last one about 10 years ago. Her last one was done by a friend at a [employer]. (Lilian Martin) PFSH Past Medical History HTN Hyperlipidemia Past Surgical History (Lilian Martin) Coded Allergies: meperidine (Unverified Allergy, Severe, Nausea/Vomiting, 11/18/16) tramadol (Unverified Allergy, Severe, Nausea/Vomiting, 11/18/16) RASH Medications Last Impressions Pelvis Ultrasound 11/18/16 1300 Signed Impressions: Service Date/Time: Friday, November 18, 2016 13:34 - CONCLUSION: 1. Findings most characteristic of in progress Frankie Casanova MD Gall Bladder Ultrasound 11/18/16 1300 Signed Impressions: Service Date/Time: Friday, November 18, 2016 13:21 - CONCLUSION: 1. Enlarged echogenic liver consistent with the hepatic steatosis versus medical liver disease. 2. Gallbladder is contracted which accentuates the gallbladder wall. However, there is diffuse gallbladder wall thickening with no pericholecystic fluid, stones or sonographic Villegas sign. Gallbladder wall thickening is commonly seen in patient's with underlying liver disease. If there is significant continued clinical concern, a HIDA scan may be performed to evaluate for cystic duct patency. Jose Yanes MD Family History Maternal GM and GF with heart disease MGGM lung cancer MGF had prostate cancer Father had lung cancer Social History No ETOH use. No tobacco (quit smoking 5 years ago) No illicit drug use (Lilian Martin) Review of Systems Constitutional: COMPLAINS OF: Fatigue, Chills, DENIES: Fever Respiratory: COMPLAINS OF: Shortness of breath, DENIES: Cough Cardiovascular: COMPLAINS OF: Palpitations, DENIES: Chest pain Gastrointestinal: COMPLAINS OF: Abdominal pain, Nausea, Anorexia, Heartburn, DENIES: Black stools, Bloody stools, Constipation, Vomiting Musculoskeletal: COMPLAINS OF: Back pain Integumentary: COMPLAINS OF: Pruritus, Jaundice Hematologic/lymphatic: DENIES: Bruising Neurologic: DENIES: Headache Psychiatric: DENIES: Confusion (Lilian Martin) GI Exam Vitals I&O Vital Signs Date Time Temp Pulse Resp B/P (MAP) Pulse Ox O2 Delivery O2 Flow Rate FiO2 11/18/16 14:03 72 16 99/60 (73) 99 Room Air 11/18/16 12:13 76 19 11/18/16 12:13 98.4 77 19 103/63 (76) 98 Room Air 11/18/16 11:15 98.4 84 15 129/83 (98) 99 Imaging Last Impressions Pelvis Ultrasound 11/18/16 1300 Signed Impressions: Service Date/Time: Friday, November 18, 2016 13:34 - CONCLUSION: 1. Findings most characteristic of in progress Frankie Casanova MD Gall Bladder Ultrasound 11/18/16 1300 Signed Impressions: Service Date/Time: Friday, November 18, 2016 13:21 - CONCLUSION: 1. Enlarged echogenic liver consistent with the hepatic steatosis versus medical liver disease. 2. Gallbladder is contracted which accentuates the gallbladder wall. However, there is diffuse gallbladder wall thickening with no pericholecystic fluid, stones or sonographic Villegas sign. Gallbladder wall thickening is commonly seen in patient's with underlying liver disease. If there is significant continued clinical concern, a HIDA scan may be performed to evaluate for cystic duct patency. Jose Yanes MD Laboratory Test 11/18/16 11:35 11/18/16 12:55 11/18/16 13:05 White Blood Count 6.9 TH/MM3 Red Blood Count 3.62 MIL/MM3 Hemoglobin 10.5 GM/DL Hematocrit 32.1 % Mean Corpuscular Volume 88.6 FL Mean Corpuscular Hemoglobin 29.2 PG Mean Corpuscular Hemoglobin Concent 32.9 % Red Cell Distribution Width 22.2 % Platelet Count 246 TH/MM3 Mean Platelet Volume 9.0 FL Neutrophils (%) (Auto) 55.2 % Lymphocytes (%) (Auto) 22.7 % Monocytes (%) (Auto) 18.1 % Eosinophils (%) (Auto) 1.8 % Basophils (%) (Auto) 2.2 % Neutrophils # (Auto) 3.8 TH/MM3 Lymphocytes # (Auto) 1.6 TH/MM3 Monocytes # (Auto) 1.3 TH/MM3 Eosinophils # (Auto) 0.1 TH/MM3 Basophils # (Auto) 0.2 TH/MM3 CBC Comment DIFF FINAL Differential Comment Urine Color YELLOW Urine Turbidity CLEAR Urine pH 6.0 Urine Specific [place] 1.003 Urine Protein NEG mg/dL Urine Glucose (UA) NEG mg/dL Urine Ketones NEG mg/dL Urine Occult Blood NEG Urine Nitrite NEG Urine Bilirubin SMALL Urine Urobilinogen LESS THAN 2.0 MG/DL Urine Leukocyte Esterase NEG Urine RBC LESS THAN 1 /hpf Urine WBC 1 /hpf Urine Squamous Epithelial Cells <1 /hpf Microscopic Urinalysis Comment CULT NOT INDICATED Blood Urea Nitrogen 6 MG/DL Creatinine 0.83 MG/DL Random Glucose 129 MG/DL Total Protein 6.9 GM/DL Albumin 3.1 GM/DL Calcium Level 8.3 MG/DL Alkaline Phosphatase 263 U/L Aspartate Amino Transf (AST/SGOT) 1179 U/L Alanine Aminotransferase (ALT/SGPT) 961 U/L Total Bilirubin 9.7 MG/DL Sodium Level 134 MEQ/L Potassium Level 3.3 MEQ/L Chloride Level 102 MEQ/L Carbon Dioxide Level 25.7 MEQ/L Anion Gap 6 MEQ/L Estimat Glomerular Filtration Rate 77 ML/MIN Human Chorionic Gonadotropin, Quant 1431 MIU/ML Prothrombin Time 12.0 SEC Prothromb Time International Ratio 1.1 RATIO Activated Partial Thromboplast Time 28.0 SEC Lipase 155 U/L Monoscreen NEG Physical Examination HEENT: Normocephalic; atraumatic; + jaundice. CHEST: CTA CARDIAC: Regular rate and rhythm with no murmur gallop or rubs. ABDOMEN: Soft, nondistended, RUQ, Mid abdominal tenderness; bowel sounds are present in all four quadrants. EXTREMITIES: No clubbing, cyanosis, or edema. SKIN: + jaundice, [employer]: No focal deficits; alert and oriented times three. (Lilian Martin) Assessment and Plan Plan ASSESSMENT: - Acute hepatitis, unclear etiology. GB US (11/18/16)----> Enlarged echogenic liver consistent with hepatic steatosis vs. medical liver disease. GB is contracted which accentuates the gallbladder wall. However, there is diffuse gallbladder wall thickening. However, there is diffuse gallbladder wall thickening with no pericholecystic fluid, stones, or sonographic Villegas sign. GB wall thickening is commonly seen in patient's with underlying liver disease. If there is continued clinical concern,a HIDA scan could be performed to evaluate patency of cystic duct. Denies ETOH use, illicit drug use, new medications other than labetolol (which she stopped 3 weeks ago ). No herbal supplements. No new tattoo's, although her last tattoo was done during a tattoo republic[employer] at a friends house. (+) New sexual partner about 6 weeks ago. Does not know if he has any hx of liver disease. T. Bili 9.7, AST 1179 , ALK 961, Alk Phosph 263. Lipase 155. ? GB wall thickening related to acute hepatitis. Of note, she does mention intermittent RUQ discomfort for years. [place] screen negative. Pt with acute hepatitis, unclear etiology at this time. DDx viral hepatitis vs. medication vs. other. Will order liver workup, further recommendations to follow. - Abdominal pain. Chronic intermittent RUQ pain. Now with mid abdominal/RUQ dull ache, radiating to back. - Anemia. 10.5/32.1. Pt has ongoing miscarriage with vaginal spotting. Likely related to this. - Hypokalemia. K+ 3.3, per attending. - Miscarriage, per attending PLAN: - Clear liquids - Hepatitis profile - AFP level - ABBY, ASMA, AMA - Ferritin, Iron Saturation - Ceruloplasmin, Alpha 1 Antitrypsin - Acetaminophen level - Toxicology screen - Ammonia level - Monitor CBC, PT/INR, Ammonia level, CMP - Supportive care - Further recommendations to follow after results of above - D/W Dr. Mckeon ? need for further imaging, he will decide after seeing patient - Pt seen and examined by Dr. Mckeon and myself and this note is written on his behalf (Lilian Martin) Plan Patient was seen and examined, agree with above-noted, elevated liver function tests could be related to acute viral diagnosis, workup in progress. Patient also states to have that is not completely miscarriage and that can also contribute to elevated liver function tests but her platelet is normal at this time we'll keep monitoring, (Ifeanyi Mckeon MD) Lilian Martin Nov 18, 2016 16:37 Ifeanyi Mckeon MD Nov 19, 2016 15:30
--- NOTE | 2016-11-18 16:41 | HHI.HP ---
[facility] Service Family Medicine Primary Care Physician Prasanna Liriano MD Admission Diagnosis Acute Liver Failure. Diagnoses: International Travel<30 Days: No Contact w/Intl Traveler<30days: No Known Affected Area: No History of Present Illness 40 y/o F, LMP 08/10, s/p Missed ab on 10/29 as confirmed by TVUS and HCG trending down. Pt has a pmhx of CAD, asthma, pre-eclampsia and GDM in previous , and heavy tylenol use. During this time her LFTs were also noted to be elevated, and the decision was made to let the pass spontaneously. She proceeded to bleed heavily and pass contents for 2 weeks. This week the patient has only been spotting lately; using panty liners during the day. During this week she also started feeling increased shortness of breath, fatigue , palpitations, dizziness, and spots in her visual [place]. He states the nausea and abdominal pain have gotten so severe that she is finding it difficult to eat. She feels more abdominal pain when she attempts to eat. Denies any vomiting. Denies any recent travel. Denies any new sexual partners. She has only had 1 sexual partner for the last 2 years and neither of them are aware of any diagnosis of hepatitis. Denies ever using any IV drugs. The patient says she has not used Tylenol heavily in over a year, and she cannot remember how much Tylenol she took during these episodes of pain. The patient has an extensive history of diffuse abdominal pain and nausea for many years. She states she has used marijuana over the last 15 years just to be able to eat. During this the pt has had severe nausea and abdominal pain. . She states that she has notified her PCP () if this, however no one has worked up. She denies ever hearing before in the past that she has elevated LFTs. She does have a history of Hyperemesis gravidarum in her previous . She has a history of hospitalization as a teenager for severe IBS and gastritis. She denies any changes in bowel movements. (Sharona Carmichael MD R2) Review of Systems Constitutional: COMPLAINS OF: Fever (occasionally this month at home per pt), Weight loss (7 lb loss in 1 week) Endocrine: DENIES: Polydipsia, Polyuria Ears, nose, mouth, throat: COMPLAINS OF: Hearing loss (missed appt for hearing center), Throat pain (trouble swallowing - thyroid?), DENIES: Vertigo Respiratory: COMPLAINS OF: Shortness of breath (assoc with heart problems, sent for nuclear scan and negative), DENIES: Wheezing Cardiovascular: COMPLAINS OF: Dyspnea on Exertion (states this is normal for her, walk up flight of stairs and SOB), DENIES: Syncope, Lower Extremity Edema Gastrointestinal: COMPLAINS OF: Nausea (per HPI), Vomiting (a few times) Genitourinary: DENIES: Sexual dysfunction, Urinary frequency Musculoskeletal: DENIES: Joint Swelling, Back pain Integumentary: DENIES: Breast masses Neurologic: DENIES: Paresthesias, Seizures Psychiatric: DENIES: Mood changes, Depression (Sharona Carmichael MD R2) Past Family Social History Past Medical History multiple ear infections w/ tubes placed (followed by ENT), told she has TMJ, sent to hearing center for testing but never made it to appt tonsillectomy, addenoidectomy emergency c/s for pre-eclampsia endometriosis multiple colposcopies CAD w/ "3 leaky valves"- medications pre-: atorvastatin, lisinopril, HCTZ, baby aspirin - stopped meds week september via recommendation of primary HTN Past Surgical History tonsillectomy, adenoidectomy multiple colposcopies (Sharona Carmichael MD R2) Allergies: Coded Allergies: meperidine (Unverified Allergy, Severe, Nausea/Vomiting, 11/18/16) tramadol (Unverified Allergy, Severe, Nausea/Vomiting, 11/18/16) RASH Family History heart disease, cancer run in both sides of family Dad - at 49 - lung cancer Mom - alive, heart disease Sibilings: non= contributory Social History smoked 2ppd x 16 years, smokes marijuana, denies alcohol use ever, denies any other drug use (Sharona Carmichael MD R2) Physical Exam Vital Signs Vital Signs Date Time Temp Pulse Resp B/P (MAP) Pulse Ox O2 Delivery O2 Flow Rate FiO2 11/18/16 14:03 72 16 99/60 (73) 99 Room Air 11/18/16 12:13 76 19 11/18/16 12:13 98.4 77 19 103/63 (76) 98 Room Air 11/18/16 11:15 98.4 84 15 129/83 (98) 99 Physical Exam GENERAL: This is a well-nourished, well-developed patient, in no apparent distress, visibly upset about her miscarriage SKIN: No rashes, ecchymoses or lesions. Cool and dry. HEAD: Atraumatic. Normocephalic. No temporal or scalp tenderness. EYES: Pupils equal round and reactive. Extraocular motions intact. Scleral icterus present. No injection or drainage. ENT: Nose without bleeding, purulent drainage or septal hematoma. Throat without erythema, tonsillar hypertrophy or exudate. Uvula midline. Airway patent. NECK: Trachea midline. No JVD or lymphadenopathy. Supple, nontender, no meningeal signs. CARDIOVASCULAR: Regular rate and rhythm without murmurs, gallops, or rubs. RESPIRATORY: Clear to auscultation. Breath sounds equal bilaterally. No wheezes , rales, or rhonchi. GASTROINTESTINAL: Abdomen soft, tenderness to moderate palpation in all quadrants, tenderness to light palpation in RUQ, nondistended. No hepato- splenomegaly, or palpable masses. No guarding. MUSCULOSKELETAL: Extremities without clubbing, cyanosis, or edema. No joint tenderness, effusion, or edema noted. No calf tenderness. Negative Homans sign bilaterally. NEUROLOGICAL: Awake and alert. Cranial nerves II through XII intact. Motor and sensory grossly within normal limits. Five out of 5 muscle strength in all muscle groups. Normal speech. Laboratory Laboratory Tests Test 11/18/16 11:35 11/18/16 12:55 11/18/16 13:05 White Blood Count 6.9 Red Blood Count 3.62 Hemoglobin 10.5 Hematocrit 32.1 Mean Corpuscular Volume 88.6 Mean Corpuscular Hemoglobin 29.2 Mean Corpuscular Hemoglobin Concent 32.9 Red Cell Distribution Width 22.2 Platelet Count 246 Mean Platelet Volume 9.0 Neutrophils (%) (Auto) 55.2 Lymphocytes (%) (Auto) 22.7 Monocytes (%) (Auto) 18.1 Eosinophils (%) (Auto) 1.8 Basophils (%) (Auto) 2.2 Neutrophils # (Auto) 3.8 Lymphocytes # (Auto) 1.6 Monocytes # (Auto) 1.3 Eosinophils # (Auto) 0.1 Basophils # (Auto) 0.2 CBC Comment DIFF FINAL Differential Comment Urine Color YELLOW Urine Turbidity CLEAR Urine pH 6.0 Urine Specific [place] 1.003 Urine Protein NEG Urine Glucose (UA) NEG Urine Ketones NEG Urine Occult Blood NEG Urine Nitrite NEG Urine Bilirubin SMALL Urine Urobilinogen LESS THAN 2.0 Urine Leukocyte Esterase NEG Urine RBC LESS THAN 1 Urine WBC 1 Urine Squamous Epithelial Cells <1 Microscopic Urinalysis Comment CULT NOT INDICATED Blood Urea Nitrogen 6 Creatinine 0.83 Random Glucose 129 Total Protein 6.9 Albumin 3.1 Calcium Level 8.3 Alkaline Phosphatase 263 Aspartate Amino Transf (AST/SGOT) 1179 Alanine Aminotransferase (ALT/SGPT) 961 Total Bilirubin 9.7 Sodium Level 134 Potassium Level 3.3 Chloride Level 102 Carbon Dioxide Level 25.7 Anion Gap 6 Estimat Glomerular Filtration Rate 77 Human Chorionic Gonadotropin, Quant 1431 Prothrombin Time 12.0 Prothromb Time International Ratio 1.1 Activated Partial Thromboplast Time 28.0 Lipase 155 Monoscreen NEG (Sharona Carmichael MD R2) Result Diagram: 11/18/16 1135 11/18/16 1135 Caprini VTE Risk Assessment Caprini VTE Risk Assessment: No/Low Risk (score <= 1) Caprini Risk Assessment Model Point Value = 1 Point Value = 2 Point Value = 3 Point Value = 5 Age 41-60 Minor surgery BMI > 25 kg/m2 Swollen legs Varicose veins or History of unexplained or recurrent spontaneous Oral contraceptives or hormone replacement Sepsis (< 1 month) Serious lung disease, including pneumonia (< 1 month) Abnormal pulmonary function Acute myocardial infarction Congestive heart failure (< 1 month) History of inflammatory bowel disease Medical patient at bed rest Age 61-74 Arthroscopic surgery Major open surgery (> 45 min) Laparoscopic surgery (> 45 min) Malignancy Confined to bed (> 72 hours) Immobilizing plaster cast Central venous access Age >= 75 History of VTE Family history of VTE Factor V Leiden Prothrombin [id number] Lupus anticoagulant Anticardiolipin antibodies Elevated serum homocysteine Heparin-induced thrombocytopenia Other congenital or acquired thrombophilia Stroke (< 1 month) Elective arthroplasty Hip, pelvis, or leg fracture Acute spinal cord injury (< 1 month) Prophylaxis Regimen Total Risk Factor Score Risk Level Prophylaxis Regimen 0-1 Low Early ambulation 2 Moderate Order ONE of the following: *Sequential Compression Device (SCD) *Heparin 5000 units SQ BID 3-4 Higher Order ONE of the following medications: *Heparin 5000 units SQ TID *Enoxaparin/Lovenox 40 mg SQ daily (WT < 150 kg, CrCl > 30 mL/min) *Enoxaparin/Lovenox 30 mg SQ daily (WT < 150 kg, CrCl > 10-29 mL/min) *Enoxaparin/Lovenox 30 mg SQ BID (WT < 150 kg, CrCl > 30 mL/min) AND/OR *Sequential Compression Device (SCD) 5 or more Highest Order ONE of the following medications: *Heparin 5000 units SQ TID (Preferred with Epidurals) *Enoxaparin/Lovenox 40 mg SQ daily (WT < 150 kg, CrCl > 30 mL/min) *Enoxaparin/Lovenox 30 mg SQ daily (WT < 150 kg, CrCl > 10-29 mL/min) *Enoxaparin/Lovenox 30 mg SQ BID (WT < 150 kg, CrCl > 30 mL/min) AND *Sequential Compression Device (SCD) (Sharona Carmichael MD R2) Assessment and Plan Assessment and Plan 40 y/o F, LMP 08/10, s/p Missed ab on 10/29 as confirmed by TVUS and HCG trending down. Complete vs. incomplete SAB pending TVUS. High LFTs and abdominal pain of unknown origin Discussed Condition With Dr. Crystal Oneill (Sharona Carmichael MD R2) Attending Attestation THIS CASE WAS DISCUSSED WITH THE RESIDENT PHYSICIANS. I HAVE REVIEWED THE RECORD AND AGREE WITH THE ABOVE NOTE AND PLAN OF CARE WAS DISCUSSED. I HAVE AUTHORIZED THE ORDER FOR ADMISSION TO AN IN-PATIENT STATUS. (Luis Wade MD) Problem List: (1) LFTs abnormal ICD Codes: R79.89 - Other specified abnormal findings of blood chemistry Status: Acute Plan: Diffuse abdominal pain, high LFTs, and spontaneous . LFTs on admission: (11/18): 1179/961 Alk Phos: 263 Total bilirubin: 9.7 LFTs at last visit/missed ab dx (10/31): 418/711 Alk phos: 264 Total bilirubin: 1.3 As per record in 2012 LFT's were normal : Alk phos: 204 Total Bili: 0.4 PLAN - GI consult: done - f/u GI recs for imaging - f/u UDS - f/u acetaminophen level - f/u hepatitis panel - NO TYLENOL - motrin PRN for pain - benadryl PRN for itching (2) Asthma ICD Codes: J45.909 - Unspecified asthma, uncomplicated Status: Chronic Plan: albuterol PRN (3) Hypertension ICD Codes: I10 - Essential (primary) hypertension Status: Chronic Plan: Controlled w/ labetalol TID during per patient - pt not currently taking - f/u BPs (4) Coronary artery disease ICD Codes: I25.10 - Atherosclerotic heart disease of [place] coronary artery without angina pectoris Status: Chronic Plan: CAD with " 3 leaky vessels" per pt - nuclear stress test and echo WNL - hold home medications (see list as per pmhx) (5) Incomplete ICD Codes: O03.4 - Incomplete spontaneous without complication Status: Acute Plan: Incomplete Ab; missed ab diagnosed on 10/29 with attempt let parts spontaneously abort. Confirmed 11/18 on pelvic U/S that gestational sac parts still in utero - f/u OBGYN consult recs: D&C vs. medical management (6) FEN/PX Status: Acute Plan: Fluids: Continue maintenance fluids Electrolytes: Potassium 3.3, f/u BMPs Nutrition: Clear liquid diet GIppx: not needed as now DVTppx: hold for now, SCDs, pending eval for possible D&C (Sharona Carmichael MD R2) Physician Certification 2 Midnight Certification Type: Admission for Inpatient Services Order for Inpatient Services The services are ordered in accordance with Medicare regulations or non- Medicare payer requirements, as applicable. In the case of services not specified as inpatient-only, they are appropriately provided as inpatient services in accordance with the 2-midnight benchmark. Estimated LOS (days): 2 days is the estimated time the patient will need to remain in the hospital, assuming treatment plan goals are met and no additional complications. Post-Hospital Plan: Home (Sharona Carmichael MD R2) Problem Qualifiers (1) Asthma: (2) Hypertension: Qualified Codes: I10 - Essential (primary) hypertension (3) Coronary artery disease: Sharona Carmichael MD R2 Nov 18, 2016 16:41 Luis Wade MD Nov 18, 2016 19:52
[2016-11-18] MEDS ORDERED: SENNOSIDES 8.6 MG TAB PO PRN (17:00)
[2016-11-18] MEDS ORDERED: ACETAMINOPHEN 325 MG TAB PO PRN (17:00)
[2016-11-18] MEDS ORDERED: NALOXONE HCL 0.4 MG/ML AMP IV PUSH PRN (17:00)
[2016-11-18] MEDS ORDERED: LACTULOSE SYRUP 20 GM/30 ML CUP PO PRN (17:00)
[2016-11-18] MEDS ORDERED: BISACODYL 10 MG SUPP RECTAL PRN (17:00)
[2016-11-18] MEDS ORDERED: MAGNESIUM HYDROXIDE SUSP 30 ML CUP PO PRN (17:00)
[2016-11-18 17:27] VITALS: BP 111/68
[2016-11-18] MEDS: SODIUM CHLOR 0.9% 1000 ML INJ 1,000 ML IV SCH (17:28)
[2016-11-18] MEDS ORDERED: POTASSIUM CHLORIDE 10 MEQ CONTROLLED RELEASE TAB PO ONE (18:00)
[2016-11-18] MEDS ORDERED: ALBUTEROL SULFATE 90 MCG/ACT HFA 8 GM INHALER INH PRN (18:00)
[2016-11-18 18:26] LABS: FERRITIN 32 NG/ML (8-252)
[2016-11-18 18:29] LABS: TRANSFERRIN IRON PROFILE 375 MG/DL (200-360)
[2016-11-18 18:54] LABS: ACETAMINOPHEN LESS THAN 2.0 MCG/ML (10.0-30.0)
--- NOTE | 2016-11-18 19:50 | HHI.HP ---
[facility] Service Family Medicine Primary Care Physician Prasanna Liriano MD Admission Diagnosis Acute Liver Failure. Diagnoses: (1) LFTs abnormal (2) Asthma (3) Hypertension (4) Coronary artery disease (5) Incomplete (6) FEN/PX International Travel<30 Days: No Contact w/Intl Traveler<30days: No Known Affected Area: No History of Present Illness 40 yo F presenting to the ED with epigastric abdominal pain, jaundice, and found to have acute hepatitis. She recently had found out she was and had a spontaneous and was seen on 10/29/16 (approx. 6 week gestation) - at that visit she was noted to have elevated LFTs and it was recommended she be admitted for further workup, however she could not stay due to having a young son at home and being a single mother. She comes back today with continued vaginal bleeding, abdominal cramping with upper abdominal pain progressively worsening. This started approximately 7 weeks ago, but she thought it was due to her . However, she woke up 3 days ago and noticed her eyes appeared to be yellow. She has a PMH of pre-eclampsia requiring emergent , questionable CAD, and asthma. She was previously on a statin, HCTZ, and lisinopril prior to finding out she was , but approx. 7 weeks ago she discontinued all medications except labetalol (started while ). After her visit on , she states that she passed clots and what appeared to be product for 2 weeks, but over the last week she has had decreased vaginal bleeding and has not passed any more clots. She denies weight loss/gain, denies chest pain, denies palpitations, denies abdominal fullness, denies fevers/chills She endorses abdominal cramping, endorses vaginal bleeding, endorses nausea, endorses fatigue, endorses pale bowel movements, endorses itching, endorses jaundice She adamantly denies IV drug use or illicit drug use (other than marijuana) She denies alcohol or tobacco use She does have several tattoos (last one 10 years ago at a "[employer] party" - not a parlor) Review of Systems Constitutional: COMPLAINS OF: Fatigue, DENIES: Fever, Weight loss, Chills Eyes: DENIES: Blurred vision Respiratory: COMPLAINS OF: Cough, Shortness of breath Cardiovascular: DENIES: Chest pain, Palpitations, Lower Extremity Edema, Claudication Gastrointestinal: COMPLAINS OF: Abdominal pain, Nausea, DENIES: Black stools, Constipation, Diarrhea, Vomiting, Difficulty Swallowing Genitourinary: COMPLAINS OF: Abnormal vaginal bleeding, DENIES: Dysmenorrhea Musculoskeletal: DENIES: Joint pain, Back pain Past Family Social History Past Medical History multiple ear infections w/ tubes placed (followed by ENT), told she has TMJ, sent [facility] but never made it to appt tonsillectomy, addenoidectomy emergency c/s for pre-eclampsia endometriosis multiple colposcopies CAD w/ "3 leaky valves"- medications pre-: atorvastatin, lisinopril, HCTZ, baby aspirin - stopped meds week september via recommendation of primary HTN Past Surgical History tonsillectomy, adenoidectomy multiple colposcopies Allergies: Coded Allergies: meperidine (Unverified Allergy, Severe, Nausea/Vomiting, 11/18/16) tramadol (Unverified Allergy, Severe, Nausea/Vomiting, 11/18/16) RASH Family History heart disease, cancer run in both sides of family Dad - at 49 - lung cancer Mom - alive, heart disease Sibilings: non= contributory Social History smoked 2ppd x 16 years, smokes marijuana, denies alcohol use ever, denies any other drug use Physical Exam Vital Signs Vital Signs Date Time Temp Pulse Resp B/P (MAP) Pulse Ox O2 Delivery O2 Flow Rate FiO2 11/18/16 17:27 74 19 111/68 (82) 97 11/18/16 17:00 21 11/18/16 14:03 72 16 99/60 (73) 99 Room Air 11/18/16 12:13 76 19 11/18/16 12:13 98.4 77 19 103/63 (76) 98 Room Air 11/18/16 11:15 98.4 84 15 129/83 (98) 99 Physical Exam GENERAL: This is a well-nourished, well-developed patient, in mild discomfort SKIN: No rashes, ecchymoses or lesions. No spider angiomata HEAD: Atraumatic. Normocephalic EYES: Pupils equal round and reactive. Extraocular motions intact. Sclera are jaundiced NECK: Trachea midline. No JVD or lymphadenopathy. Supple, nontender, no meningeal signs. CARDIOVASCULAR: Regular rate and rhythm with 2/6 systolic murmur - no gallops, or rubs. RESPIRATORY: Clear to auscultation. Breath sounds equal bilaterally. No wheezes , rales, or rhonchi. GASTROINTESTINAL: Abdomen soft, diffusely tender in the epigastric and RUQ region MUSCULOSKELETAL: Extremities without clubbing, cyanosis, or edema. NEUROLOGICAL: Awake and alert. Laboratory Laboratory Tests Test 11/18/16 11:35 11/18/16 12:55 11/18/16 13:05 11/18/16 17:30 White Blood Count 6.9 Red Blood Count 3.62 Hemoglobin 10.5 Hematocrit 32.1 Mean Corpuscular Volume 88.6 Mean Corpuscular Hemoglobin 29.2 Mean Corpuscular Hemoglobin Concent 32.9 Red Cell Distribution Width 22.2 Platelet Count 246 Mean Platelet Volume 9.0 Neutrophils (%) (Auto) 55.2 Lymphocytes (%) (Auto) 22.7 Monocytes (%) (Auto) 18.1 Eosinophils (%) (Auto) 1.8 Basophils (%) (Auto) 2.2 Neutrophils # (Auto) 3.8 Lymphocytes # (Auto) 1.6 Monocytes # (Auto) 1.3 Eosinophils # (Auto) 0.1 Basophils # (Auto) 0.2 CBC Comment DIFF FINAL Differential Comment Urine Color YELLOW Urine Turbidity CLEAR Urine pH 6.0 Urine Specific [place] 1.003 Urine Protein NEG Urine Glucose (UA) NEG Urine Ketones NEG Urine Occult Blood NEG Urine Nitrite NEG Urine Bilirubin SMALL Urine Urobilinogen LESS THAN 2.0 Urine Leukocyte Esterase NEG Urine RBC LESS THAN 1 Urine WBC 1 Urine Squamous Epithelial Cells <1 Microscopic Urinalysis Comment CULT NOT INDICATED Blood Urea Nitrogen 6 Creatinine 0.83 Random Glucose 129 Total Protein 6.9 Albumin 3.1 Calcium Level 8.3 Alkaline Phosphatase 263 Aspartate Amino Transf (AST/SGOT) 1179 Alanine Aminotransferase (ALT/SGPT) 961 Total Bilirubin 9.7 Sodium Level 134 Potassium Level 3.3 Chloride Level 102 Carbon Dioxide Level 25.7 Anion Gap 6 Estimat Glomerular Filtration Rate 77 Human Chorionic Gonadotropin, Quant 1431 Urine Opiates Screen NEG Urine Barbiturates Screen NEG Urine Amphetamines Screen NEG Urine Benzodiazepines Screen NEG Urine Cocaine Screen NEG Urine Cannabinoids Screen POS Prothrombin Time 12.0 Prothromb Time International Ratio 1.1 Activated Partial Thromboplast Time 28.0 Lipase 155 Tumor Marker Alpha Fetoprotein 4.6 Monoscreen NEG Iron Level 41 Total Iron Binding Capacity 525 Percent Iron Saturation 7.8 Ferritin 32 Ammonia 22 Acetaminophen Level LESS THAN 2.0 Result Diagram: 11/18/16 1135 11/18/16 1135 [facility] Risk [facility]: No/Low Risk (score <= 1) Caprini Risk Assessment Model Point Value = 1 Point Value = 2 Point Value = 3 Point Value = 5 Age 41-60 Minor surgery BMI > 25 kg/m2 Swollen legs Varicose veins or History of unexplained or recurrent spontaneous Oral contraceptives or hormone replacement Sepsis (< 1 month) Serious lung disease, including pneumonia (< 1 month) Abnormal pulmonary function Acute myocardial infarction Congestive heart failure (< 1 month) History of inflammatory bowel disease Medical patient at bed rest Age 61-74 Arthroscopic surgery Major open surgery (> 45 min) Laparoscopic surgery (> 45 min) Malignancy Confined to bed (> 72 hours) Immobilizing plaster cast Central venous access Age >= 75 History of VTE Family history of VTE Factor V Leiden Prothrombin [id number] Lupus anticoagulant Anticardiolipin antibodies Elevated serum homocysteine Heparin-induced thrombocytopenia Other congenital or acquired thrombophilia Stroke (< 1 month) Elective arthroplasty Hip, pelvis, or leg fracture Acute spinal cord injury (< 1 month) Prophylaxis Regimen Total Risk Factor Score Risk Level Prophylaxis Regimen 0-1 Low Early ambulation 2 Moderate Order ONE of the following: *Sequential Compression Device (SCD) *Heparin 5000 units SQ BID 3-4 Higher Order ONE of the following medications: *Heparin 5000 units SQ TID *Enoxaparin/Lovenox 40 mg SQ daily (WT < 150 kg, CrCl > 30 mL/min) *Enoxaparin/Lovenox 30 mg SQ daily (WT < 150 kg, CrCl > 10-29 mL/min) *Enoxaparin/Lovenox 30 mg SQ BID (WT < 150 kg, CrCl > 30 mL/min) AND/OR *Sequential Compression Device (SCD) 5 or more Highest Order ONE of the following medications: *Heparin 5000 units SQ TID (Preferred with Epidurals) *Enoxaparin/Lovenox 40 mg SQ daily (WT < 150 kg, CrCl > 30 mL/min) *Enoxaparin/Lovenox 30 mg SQ daily (WT < 150 kg, CrCl > 10-29 mL/min) *Enoxaparin/Lovenox 30 mg SQ BID (WT < 150 kg, CrCl > 30 mL/min) AND *Sequential Compression Device (SCD) Assessment and Plan Assessment and Plan 40 y/o F, LMP 08/10, s/p Missed ab on 10/29 as confirmed by TVUS and HCG trending down. Complete vs. incomplete SAB pending TVUS. High LFTs and abdominal pain of unknown origin Problem List: (1) LFTs abnormal ICD Codes: R79.89 - Other specified abnormal findings of blood chemistry Status: Acute Plan: Diffuse abdominal pain, high LFTs, and spontaneous . LFTs on admission: (11/18): 1179/961 Alk Phos: 263 Total bilirubin: 9.7 LFTs at last visit/missed ab dx (10/31): 418/711 Alk phos: 264 Total bilirubin: 1.3 As per record in 2012 LFT's were normal : Alk phos: 204 Total Bili: 0.4 PLAN - GI consult: done - f/u GI recs for imaging and labwork - f/u UDS - f/u acetaminophen level - f/u hepatitis panel - NO TYLENOL - motrin PRN for pain - benadryl PRN for itching (2) Asthma ICD Codes: J45.909 - Unspecified asthma, uncomplicated Status: Chronic Plan: albuterol PRN (3) Hypertension ICD Codes: I10 - Essential (primary) hypertension Status: Chronic Plan: Controlled w/ labetalol TID during per patient - pt not currently taking - f/u BPs (4) Coronary artery disease ICD Codes: I25.10 - Atherosclerotic heart disease of [place] coronary artery without angina pectoris Status: Chronic Plan: CAD with " 3 leaky vessels" per pt - nuclear stress test and echo WNL - hold home medications (see list as per pmhx) (5) Incomplete ICD Codes: O03.4 - Incomplete spontaneous without complication Status: Acute Plan: Incomplete Ab; missed ab diagnosed on 10/29 with attempt let parts spontaneously abort. Confirmed 11/18 on pelvic U/S that gestational sac parts still in utero - f/u OBGYN consult recs: D&C vs. medical management (6) FEN/PX Status: Acute Plan: Fluids: Continue maintenance fluids Electrolytes: Potassium 3.3, f/u BMPs Nutrition: Clear liquid diet GIppx: not needed as now DVTppx: hold for now, SCDs, pending eval for possible D&C Physician Certification 2 Midnight Certification Type: Admission for Inpatient Services Order for Inpatient Services The services are ordered in accordance with Medicare regulations or non- Medicare payer requirements, as applicable. In the case of services not specified as inpatient-only, they are appropriately provided as inpatient services in accordance with the 2-midnight benchmark. Estimated LOS (days): 2 2 days is the estimated time the patient will need to remain in the hospital, assuming treatment plan goals are met and no additional complications. Post-Hospital Plan: Home Problem Qualifiers (1) Asthma: (2) Hypertension: Qualified Codes: I10 - Essential (primary) hypertension (3) Coronary artery disease: Luis Wade MD Nov 18, 2016 19:50
[2016-11-18 20:00] VITALS: BP 107/62; PULSE 73; RESP 17; TEMP 96.2; O2SAT 95
[2016-11-18] MEDS: ONDANSETRON HCL 4 MG/2 ML VIAL IVP PRN (20:39)
[2016-11-18] MEDS: DOCUSATE SODIUM 50 MG/SENNA 8.6 MG TAB PO SCH (20:46)
[2016-11-18] MEDS: SODIUM CHLORIDE 0.9% FLUSH 10 ML FLUSH IV FLUSH SCH (20:46)
[2016-11-19] VITALS (9 sets, daily range): BP systolic 100–108; BP diastolic 55–67; PULSE 73–82; RESP 17–18; TEMP 97.1–99.6; O2SAT 97–99
[2016-11-19] MEDS: ONDANSETRON HCL 4 MG/2 ML VIAL IVP PRN ×3 (04:16→20:16)
[2016-11-19] MEDS: SODIUM CHLOR 0.9% 1000 ML INJ 1,000 ML IV SCH ×2 (04:18→16:20)
[2016-11-19 08:09] LABS: HEMATOCRIT 29.8 % (35.0-46.0); INTERNATIONAL NORMALIZED RATIO 1.1 RATIO; MEAN CELL VOLUME 88.5 FL (80.0-100.0); MEAN CORPUSCULAR HGB CONC 33.9 % (32.0-36.0); PLATELET COUNT 213 TH/MM3 (150-450); PROTHROMBIN TIME - PATIENT 12.3 SEC (9.8-11.6); RED BLOOD COUNT 3.37 MIL/MM3 (4.00-5.30); RED CELL DISTRIBUTION WIDTH 21.7 % (11.6-17.2); WHITE BLOOD COUNT 6.6 TH/MM3 (4.0-11.0)
[2016-11-19 08:10] LABS: HEMO FLAGS AUTO DIFF
[2016-11-19 08:34] LABS: BETA HCG QUANT 1246 MIU/ML (0-5)
[2016-11-19 08:37] LABS: ANION GAP 7 MEQ/L (5-15); BICARBONATE 24.5 MEQ/L (21.0-32.0); BLOOD UREA NITROGEN 4 MG/DL (7-18); CHLORIDE 108 MEQ/L (98-107); GLOMERULAR FILTRATION RATE 100 ML/MIN (>89); POTASSIUM 3.4 MEQ/L (3.5-5.1); SODIUM (NA) 139 MEQ/L (136-145)
[2016-11-19 08:58] LABS: ALKALINE PHOSPHATASE 226 U/L (45-117); ALT (GPT) 845 U/L (10-53); AST (GOT) 1077 U/L (15-37); BETA HCG QUANT 1242 MIU/ML (0-5); HDL CHOLESTEROL 6.7 MG/DL (40.0-60.0); TOTAL BILIRUBIN ADULT 10.6 MG/DL (0.2-1.0)
[2016-11-19] MEDS: SODIUM CHLORIDE 0.9% FLUSH 10 ML FLUSH IV FLUSH SCH ×2 (09:00→20:20)
[2016-11-19 09:14] LABS: BANDS 6 % (0-6); EOSINOPHILS 3 % (0-4); NEUTROPHIL # MANUAL DIFF 4.1 TH/MM3 (1.8-7.7); PLATELET ESTIMATE SMEAR NORMAL (NORMAL); PLATELET MORPHOLOGY NORMAL (NORMAL); POLYS (SEG NEUTROPHILS) 56 % (16-70); SCAN/DIFF FINAL DIFF MANUAL; TARGET CELLS 2+ (NORMAL); WBC DIFF SAMPLE 100
[2016-11-19 09:15] LABS: INDIRECT BILIRUBIN 2.3 MG/DL (0.0-0.8); LDL CHOLESTEROL 88 MG/DL (0-99)
[2016-11-19 09:18] LABS: ALCOHOL LESS THAN 3 MG/DL (0-5)
[2016-11-19] MEDS: DOCUSATE SODIUM 50 MG/SENNA 8.6 MG TAB PO SCH ×2 (10:30→19:47)
--- NOTE | 2016-11-19 11:51 | HHI.GIFU ---
Subjective Remarks Resting in bed in no distress. No nausea/vomiting today. Mild abdominal discomfort, but no significant paint (Lilian Martin) Objective Vitals I&O Vital Signs Date Time Temp Pulse Resp B/P (MAP) Pulse Ox O2 Delivery O2 Flow Rate FiO2 11/19/16 09:34 97 11/19/16 08:00 97.9 79 18 108/55 (72) 97 11/19/16 04:52 97 11/19/16 04:00 97.1 73 17 100/58 (72) 98 11/19/16 00:00 97.1 82 17 108/67 (81) 97 11/18/16 20:00 96.2 73 17 107/62 (77) 95 11/18/16 17:27 74 19 111/68 (82) 97 11/18/16 17:00 21 11/18/16 14:03 72 16 99/60 (73) 99 Room Air 11/18/16 12:13 76 19 11/18/16 12:13 98.4 77 19 103/63 (76) 98 Room Air I/O 11/18/16 11/18/16 11/18/16 11/19/16 11/19/16 11/19/16 07:00 15:00 23:00 07:00 15:00 23:00 Intake Total 240 ml Balance 240 ml Intake Oral 240 ml # Voids 1 3 Laboratory Laboratory Tests Test 11/18/16 12:55 11/18/16 13:05 11/18/16 17:30 11/19/16 06:11 Prothrombin Time 12.0 12.3 Prothromb Time International Ratio 1.1 1.1 Activated Partial Thromboplast Time 28.0 Lipase 155 99 Tumor Marker Alpha Fetoprotein 4.6 Monoscreen NEG Iron Level 41 Total Iron Binding Capacity 525 Percent Iron Saturation 7.8 Ferritin 32 Ammonia 22 Acetaminophen Level LESS THAN 2.0 White Blood Count 6.6 Red Blood Count 3.37 Hemoglobin 10.1 Hematocrit 29.8 Mean Corpuscular Volume 88.5 Mean Corpuscular Hemoglobin 30.0 Mean Corpuscular Hemoglobin Concent 33.9 Red Cell Distribution Width 21.7 Platelet Count 213 Mean Platelet Volume 10.3 CBC Comment AUTO DIFF Differential Total Cells Counted 100 Neutrophils % (Manual) 56 Band Neutrophils % 6 Lymphocytes % 21 Monocytes % 14 Eosinophils % 3 Neutrophils # (Manual) 4.1 Differential Comment FINAL DIFF MANUAL Platelet Estimate NORMAL Platelet Morphology Comment NORMAL Target Cells 2+ Blood Urea Nitrogen 4 Creatinine 0.66 Random Glucose 83 Total Protein 6.1 Albumin 2.8 Calcium Level 7.8 Alkaline Phosphatase 226 Aspartate Amino Transf (AST/SGOT) 1077 Alanine Aminotransferase (ALT/SGPT) 845 Total Bilirubin 10.6 Direct Bilirubin 8.3 Sodium Level 139 Potassium Level 3.4 Chloride Level 108 Carbon Dioxide Level 24.5 Anion Gap 7 Estimat Glomerular Filtration Rate 100 Indirect Bilirubin 2.3 Triglycerides Level 262 Cholesterol Level 147 LDL Cholesterol 88 HDL Cholesterol 6.7 Cholesterol/HDL Ratio 21.94 Thyroid Stimulating Hormone 3rd Gen 0.822 Human Chorionic Gonadotropin, Quant 1246 Salicylates Level LESS THAN 1.7 Ethyl Alcohol Level LESS THAN 3 Imaging Last Impressions Pelvis Ultrasound 11/18/16 1300 Signed Impressions: Service Date/Time: Friday, November 18, 2016 13:34 - CONCLUSION: 1. Findings most characteristic of in progress Frankie Casanova MD Gall Bladder Ultrasound 11/18/16 1300 Signed Impressions: Service Date/Time: Friday, November 18, 2016 13:21 - CONCLUSION: 1. Enlarged echogenic liver consistent with the hepatic steatosis versus medical liver disease. 2. Gallbladder is contracted which accentuates the gallbladder wall. However, there is diffuse gallbladder wall thickening with no pericholecystic fluid, stones or sonographic Villegas sign. Gallbladder wall thickening is commonly seen in patient's with underlying liver disease. If there is significant continued clinical concern, a HIDA scan may be performed to evaluate for cystic duct patency. Jose Yanes MD Physical Exam HEENT: Normocephalic; atraumatic; + jaundice. CHEST: CTA, Resp. even/unlabored CARDIAC: RRR ABDOMEN: Soft, nondistended, nontender; no hepatosplenomegaly; bowel sounds are present in all four quadrants. EXTREMITIES: No clubbing, cyanosis, or edema. SKIN: + jaundice. BUNCH MAKER HAND: No focal deficits; alert and oriented times three. (Lilian Martin) Assessment and Plan Plan ASSESSMENT: - Acute hepatitis, unclear etiology. GB US (11/18/16)----> Enlarged echogenic liver consistent with hepatic steatosis vs. medical liver disease. GB is contracted which accentuates the gallbladder wall. However, there is diffuse gallbladder wall thickening. However, there is diffuse gallbladder wall thickening with no pericholecystic fluid, stones, or sonographic Villegas sign. GB wall thickening is commonly seen in patient's with underlying liver disease. If there is continued clinical concern,a HIDA scan could be performed to evaluate patency of cystic duct. Denies ETOH use, illicit drug use, new medications other than labetolol (which she stopped 3 weeks ago ). No herbal supplements. 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 (+) New sexual partner about 6 weeks ago. Does not know if he has any hx of liver disease. ? GB wall thickening related to acute hepatitis. Of note, she does mention intermittent RUQ discomfort for years. Boundary screen negative. Pt with acute hepatitis, unclear etiology at this time. DDx viral hepatitis vs. medication vs. other. Hepatitis panel pending, Monoscreen negative, ABBY pending, AMA pending, ASMA pending, Acetaminophen < 2.0, Ethyl alcohol < 3, Cannabinoids (+), but opioids negative, Iron saturation 7.8%, Ferritin 32. Alpha 1 antitrypsin pending, Ceruloplasmin pending, AFP 4.6. LFTs essentially the same today, T. Bili 10.6, Direct 8.3, Indirect 2.3, AST 1077, ALT 845, Alk Phosph 226. PT 12.3, INR 1.1, Ammonia 22. Await liver w/u, especially viral hepatitis panel. Monitor LFTs. Supportive care. - Abdominal pain. Chronic intermittent RUQ pain. Now with mid abdominal/RUQ dull ache, radiating to back. Improved. - Anemia. 10.1/29.8. Pt has ongoing miscarriage with vaginal spotting. Likely related to this. - Hypokalemia. K+ 3.4, per attending. - Miscarriage, SERVICE TESTER consulted. PLAN: - SHAYLA, low fat - Await Hepatitis profile - Await ABBY, ASMA, AMA - Await Ceruloplasmin, Alpha 1 Antitrypsin - Monitor labs - Supportive care - Avoid hepatotoxins - Further recommendations to follow after results of above - Pt seen and examined by Dr. Mckeon and myself and this note is written on his behalf (Lilian Martin) Lilian Martin Nov 19, 2016 11:51 Ifeanyi Mckeon MD Nov 20, 2016 13:13
--- NOTE | 2016-11-19 12:16 | HHI.FPPN ---
Subjective Remarks No acute events overnight. Afebrile vital signs stable overnight. Patient denies any new pains this morning. She denies any shortness of breath. She reports that her vaginal bleeding is improved/decreased. She still reports some dark urine. She reports that her bowel movements are darker (they were pale before). She still reports feeling scared, itchy, and some mild right upper quadrant abdominal pain. She requests a shower. She also reports a history of recent antibiotic use. In July she had multiple ear infections refractory to a course of antibiotics. She reports that she was on 4 different antibiotics including Levaquin, Bactrim, Augmentin 4 times a day. She denies taking any nutritional supplements. She did tell GI team about a recent sex partner with unknown hepatitis status. (Bernardo Rojas MD R2) Objective Vitals Vital Signs Date Time Temp Pulse Resp B/P (MAP) Pulse Ox O2 Delivery O2 Flow Rate FiO2 11/19/16 12:00 97.7 74 18 105/56 (72) 99 11/19/16 09:34 97 11/19/16 08:00 97.9 79 18 108/55 (72) 97 11/19/16 04:52 97 11/19/16 04:00 97.1 73 17 100/58 (72) 98 11/19/16 00:00 97.1 82 17 108/67 (81) 97 11/18/16 20:00 96.2 73 17 107/62 (77) 95 11/18/16 17:27 74 19 111/68 (82) 97 11/18/16 17:00 21 11/18/16 14:03 72 16 99/60 (73) 99 Room Air I/O 11/18/16 11/18/16 11/18/16 11/19/16 11/19/16 11/19/16 07:00 15:00 23:00 07:00 15:00 23:00 Intake Total 240 ml Balance 240 ml Intake Oral 240 ml # Voids 1 3 (Bernardo Rojas MD R2) Result Diagram: 11/19/16 0611 11/19/16 0611 Imaging Last Impressions Pelvis Ultrasound 11/18/16 1300 Signed Impressions: Service Date/Time: Friday, November 18, 2016 13:34 - CONCLUSION: 1. Findings most characteristic of in progress Frankie Casanova MD Gall Bladder Ultrasound 11/18/16 1300 Signed Impressions: Service Date/Time: Friday, November 18, 2016 13:21 - CONCLUSION: 1. Enlarged echogenic liver consistent with the hepatic steatosis versus medical liver disease. 2. Gallbladder is contracted which accentuates the gallbladder wall. However, there is diffuse gallbladder wall thickening with no pericholecystic fluid, stones or sonographic Villegas sign. Gallbladder wall thickening is commonly seen in patient's with underlying liver disease. If there is significant continued clinical concern, a HIDA scan may be performed to evaluate for cystic duct patency. Jose Yanes MD Objective Remarks GENERAL: Well-nourished, well-developed patient. SKIN: Warm and dry. HEAD: Normocephalic. EYES: + scleral icterus. No injection or drainage. NECK: Supple, trachea midline. No JVD or lymphadenopathy. CARDIOVASCULAR: Regular rate and rhythm without murmurs, gallops, or rubs. RESPIRATORY: Breath sounds equal bilaterally. No accessory muscle use. GASTROINTESTINAL: Abdomen soft, tender to palpation of right upper quadrant, nondistended. No rebound or guarding. EXTREMITIES: No cyanosis, or edema. No calf tenderness. NEUROLOGICAL: Awake, alert, and oriented x 3. Non-focal. (Bernardo Rojas MD R2) A/P Assessment and Plan 40 y/o F, LMP 08/10, s/p Missed ab on 10/29 as confirmed by US and HCG was trending down, who p/w RUQ pain and nausea. Complete vs. incomplete SAB pending TVUS. Elevated LFTs and abdominal pain, found to have hepatitis B. 11/19/16 - hCG stable, concerning for retained products of conception; OB consult pending. Hepatitis B positive. Discharge Planning per GI and PROCESS IMPROVEMENT SPECIALIST rec's (Bernardo Rojas MD R2) Attending Attestation Patient examined and case discussed with resident physician I have read the above note and agree with the assessment/plan as discussed with me I was involved in all medical decision making for this patient Luis Wade M.D. (Luis Wade MD) Problem List: (1) Incomplete ICD Codes: O03.4 - Incomplete spontaneous without complication Status: Acute Plan: Incomplete Ab; missed ab diagnosed on 10/29 with attempt let parts spontaneously abort. Confirmed 11/18 on pelvic U/S that gestational sac parts still in utero - Beta hCG stable today suggesting retained products of conception. Concern for nidus for infection/sepsis - f/u PROCESS IMPROVEMENT SPECIALIST consult recs: D&C vs. medical management (2) Hepatitis B ICD Codes: B19.10 - Unspecified viral hepatitis B without hepatic coma Plan: Patient p/w RUQ abdominal pain, elevated LFTs around 1000, found to have + hepatitis B labs. - GI consult appreciated - f/u GI recs regarding imaging and labwork - UDS positive for cannabinoids, otherwise negative or pending - acetaminophen level low - hepatitis panel positive for hepatitis B surface antigen, hepatitis B core IgM antibody, otherwise negative - NO TYLENOL - motrin PRN for pain - benadryl PRN for itching (3) Asthma ICD Codes: J45.909 - Unspecified asthma, uncomplicated Status: Chronic Plan: albuterol PRN (4) Hypertension ICD Codes: I10 - Essential (primary) hypertension Status: Chronic Plan: Controlled w/ labetalol TID during per patient - pt not currently taking - Patient has been normotensive for mildly hypotensive throughout this admission ; no need to treat (5) Coronary artery disease ICD Codes: I25.10 - Atherosclerotic heart disease of [place] coronary artery without angina pectoris Status: Chronic Plan: CAD with " 3 leaky vessels" per pt - nuclear stress test and echo WNL - hold home medications (see list as per pmhx) (6) FEN/PX Status: Acute Plan: Fluids: Continue maintenance fluids Electrolytes: Potassium 3.4, repeat 40 mEq of KCl today and f/u BMP Nutrition: Clear liquid diet GIppx: not needed as now DVTppx: hold for now, SCDs, pending eval for possible D&C (Bernardo Rojas MD R2) Problem Qualifiers (1) Asthma: (2) Hypertension: Qualified Codes: I10 - Essential (primary) hypertension (3) Coronary artery disease: Bernardo Rojas MD R2 Nov 19, 2016 12:16 Luis Wade MD Nov 19, 2016 16:37
[2016-11-19] MEDS ORDERED: POTASSIUM CHLORIDE 10 MEQ CONTROLLED RELEASE TAB PO ONE (14:15)
--- NOTE | 2016-11-19 14:50 | HHI.PR ---
Addendum to Inpatient Note Addendum Reason: Additional Documentation Additional Information Dr. Liriano, who is the patient's primary care provider, will be taking over Ms. Swann's care. Dr. Wade discussed the case with Dr. Liriano directly. (Bernardo Rojas MD R2) Additional Information Dr. Liriano is the primary care provider for this patient and he has an existing relationship with her, and he has requested to take over her inpatient care while in the hospital. The attending physician has been changed from Dr. Wade to Dr. Liriano will take over responsibility for this patient's care immediately. (Luis Wade MD) Bernardo Rojas MD R2 Nov 19, 2016 14:50 Luis Wade MD Nov 19, 2016 16:40
--- NOTE | 2016-11-19 15:29 | PD.CONS ---
HPI Chief Complaint inpatient consult requested for incomplete/missed ab Date Seen: Nov 19, 2016 Time Seen: 15:20 Travel History International Travel<30 Days: No Contact w/Intl Traveler<30Days: No Known Affected Area: No History of Present Illness HPI Pt is a 30 y/o admitted for elevated LFTs/jaundice of unknown etiology. Pt states that she was seen in ED in Oct and diagnosed with 6 wk IUP. 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 Pt states she continued to have bleeding for next two weeks and passed some tissue. Currently bleeding is light spotting. Para: 1 : 2 Last Menstrual Period: Aug 10, 2016 History Past Medical History Narrative Medical hypertension, hyperlipidemia, "leaky" heart valves Obstetric History Obstetric History 2012 post-dates primary secondary to elevated blood pressure, failed IOL Past Surgical History Narrative Surgical T&A myringotomy tubes Family History Narrative Family History CAD, lung cancer Social History Alcohol Use: No Tobacco Use: No (former smoker) Substance Abuse: Yes (MJ use) Allergies-Medications (Allergen,Severity, Reaction): Coded Allergies: meperidine (Unverified Allergy, Severe, Nausea/Vomiting, 11/18/16) tramadol (Unverified Allergy, Severe, Nausea/Vomiting, 11/18/16) RASH Home Meds No Active Prescriptions or Reported Meds Review of Systems General / Constitutional: Chills Eyes: No: Diploplia, Blurred Vision, Visual changes, Pain, Photophobia, Other HENT: No: Headaches, Vertigo, Dental Difficulties, Lightheadedness, Other Gastrointestinal: Nausea, Abdominal Pain, Loss of Appetite Genitourinary: Vaginal Bleeding Musculoskeletal: Weakness Skin: Itching Neurologic: Weakness Psychiatric: No: Anxiety, Depression, Suicidal Ideations, Disorder of Thought, Mood Disorder, Substance Abuse, Homicidal Ideation, Other Endocrine: No: Heat Intolerance, Cold Intolerance, Polydipsia, Polyuria, Other Hematologic/Lymphatic: No Easy Bruising, No Lymph Node Enlargement, No Other Physical Exam Vital Signs Date Time Temp Pulse Resp B/P (MAP) Pulse Ox O2 Delivery O2 Flow Rate FiO2 11/19/16 12:00 97.7 74 18 105/56 (72) 99 11/19/16 09:34 97 9/26/17 08:00 97.9 79 18 108/55 (72) 97 11/19/16 04:52 97 11/19/16 04:00 97.1 73 17 100/58 (72) 98 11/19/16 00:00 97.1 82 17 108/67 (81) 97 11/18/16 20:00 96.2 73 17 107/62 (77) 95 11/18/16 17:27 74 19 111/68 (82) 97 11/18/16 17:00 21 Narrative GENERAL: Well-nourished, well-developed patient. SKIN: Warm and dry. HEAD: Normocephalic and atraumatic. EYES: + scleral icterus. ENT: No nasal drainage noted. Mucous membranes pink. Airway patent. NECK: Supple, trachea midline. No JVD. CARDIOVASCULAR: Regular rate and rhythm without murmurs, gallops, or rubs. RESPIRATORY: Breath sounds equal bilaterally. No accessory muscle use. ABDOMEN/GI: Abdomen soft, non-tender, bowel sounds present, no rebound, no guarding EXTREMITIES: No cyanosis or edema. BACK: Nontender without obvious deformity. No CVA tenderness. NEUROLOGICAL: Awake and alert. Motor and sensory grossly within normal limits. Five out of 5 muscle strength in all muscle groups. Normal speech. Data Data Vital Signs Reviewed: Yes Orders Orders Consult Gastroenterology (11/18/16 ) Tylenol (Acetaminophen) (11/18/16 16:24) Complete Blood Count With Diff (11/19/16 06:00) Afp, Tumor Marker (11/18/16 16:24) Ighhc-3-Jrpjxaeblpr (11/18/16 16:24) Mitochondrial Total Autoabs (11/18/16 16:24) Smooth Muscle Total Autoabs (11/18/16 16:24) Ceruloplasmin (11/18/16 16:24) Verena Screen (11/18/16 16:24) Ferritin (11/18/16 16:24) Iron/Tibc Profile (11/18/16 16:24) Hepatitis Profile (11/18/16 16:24) Diet Clear Liquid (11/18/16 Dinner) Ammonia (11/18/16 16:27) Prothrombin Time / Inr (Pt) (11/19/16 06:00) Admit To Inpatient (11/18/16 ) Vital Signs (Adult) Q4H (11/18/16 16:46) Activity Oob Ad Nu (11/18/16 16:46) Sodium Chlor 0.9% 1000 Ml Inj (Ns 1000 M (11/18/16 17:00) Sodium Chloride 0.9% Flush (Ns Flush) (11/18/16 17:00) Sodium Chloride 0.9% Flush (Ns Flush) (11/18/16 21:00) Acetaminophen (Tylenol) (11/18/16 17:00) Ondansetron Inj (Zofran Inj) (11/18/16 17:00) Resp Oxygen Ceferino C Titrat 1-4 L (11/18/16 ) Case Management Consult (11/18/16 16:46) Scd Bilateral/Knee High ANTHONY.BID (11/18/16 16:46) Naloxone Inj (Narcan Inj) (11/18/16 17:00) Docusate Sodium-Senna (Louisa-Colace) (11/18/16 21:00) Magnesium Hydroxide Liq (Milk Of Magnesi (11/18/16 17:00) Sennosides (Senokot) (11/18/16 17:00) Bisacodyl Supp (Dulcolax Supp) (11/18/16 17:00) Lactulose Liq (Lactulose Liq) (11/18/16 17:00) Inpatient Certification (11/18/16 ) Ob/Psych Drug Screen, Urine (11/18/16 16:51) Specimen To Be Collected PRN (11/18/16 16:51) Potassium Chloride (Kcl) (11/18/16 18:00) Consult Obstetrics (11/18/16 ) Albuterol Hfa Inh (Proair Hfa Inh) (11/18/16 18:00) Sleeve, Knee Sequential Eliecer Pr (11/18/16 18:03) Ur Bath Salts (11/18/16 11:35) Ur Heroin (11/18/16 11:35) Ur K2 Spice (11/18/16 11:35) Ur Ecstasy (11/18/16 11:35) Phencyclidine Urine (Pcp) (11/18/16 11:35) (Hub Use Only)Inp Phy Cons/Ref (11/18/16 21:43) Salicylates (Aspirin) (11/19/16 06:00) Direct Bilirubin (11/19/16 06:00) Bilirubin Components (11/19/16 06:00) Thyroid Stimulating Hormone (11/19/16 06:00) Lipase (11/19/16 06:00) Alcohol (Ethanol) (11/18/16 23:39) Hiv Antibody Screen (11/19/16 06:00) Comprehensive Metabolic Panel (11/19/16 06:00) Lipid Profile (11/19/16 06:00) Ibuprofen (Advil) (11/19/16 00:15) Beta Hcg (Quant/Titer) (11/19/16 06:00) Beta Hcg (Quant/Titer) (11/19/16 06:37) ^ Shower (11/19/16 10:49) Complete Blood Count With Diff (11/20/16 06:00) Comprehensive Metabolic Panel (11/20/16 06:00) Prothrombin Time / Inr (Pt) (11/20/16 06:00) Diet Heart Healthy (11/19/16 Lunch) Potassium Chloride (Kcl) (11/19/16 14:15) Physician Name Changes (11/19/16 ) Misoprostol (Cytotec) (11/19/16 15:30) Labs Laboratory Tests Test 11/18/16 17:30 11/19/16 06:11 Iron Level 41 Total Iron Binding Capacity 525 Percent Iron Saturation 7.8 Ferritin 32 Ammonia 22 Acetaminophen Level LESS THAN 2.0 White Blood Count 6.6 Red Blood Count 3.37 Hemoglobin 10.1 Hematocrit 29.8 Mean Corpuscular Volume 88.5 Mean Corpuscular Hemoglobin 30.0 Mean Corpuscular Hemoglobin Concent 33.9 Red Cell Distribution Width 21.7 Platelet Count 213 Mean Platelet Volume 10.3 CBC Comment AUTO DIFF Differential Total Cells Counted 100 Neutrophils % (Manual) 56 Band Neutrophils % 6 Lymphocytes % 21 Monocytes % 14 Eosinophils % 3 Neutrophils # (Manual) 4.1 Differential Comment FINAL DIFF MANUAL Platelet Estimate NORMAL Platelet Morphology Comment NORMAL Target Cells 2+ Prothrombin Time 12.3 Prothromb Time International Ratio 1.1 Blood Urea Nitrogen 4 Creatinine 0.66 Random Glucose 83 Total Protein 6.1 Albumin 2.8 Calcium Level 7.8 Alkaline Phosphatase 226 Aspartate Amino Transf (AST/SGOT) 1077 Alanine Aminotransferase (ALT/SGPT) 845 Total Bilirubin 10.6 Direct Bilirubin 8.3 Sodium Level 139 Potassium Level 3.4 Chloride Level 108 Carbon Dioxide Level 24.5 Anion Gap 7 Estimat Glomerular Filtration Rate 100 Indirect Bilirubin 2.3 Triglycerides Level 262 Cholesterol Level 147 LDL Cholesterol 88 HDL Cholesterol 6.7 Cholesterol/HDL Ratio 21.94 Lipase 99 Thyroid Stimulating Hormone 3rd Gen 0.822 Human Chorionic Gonadotropin, Quant 1246 Salicylates Level LESS THAN 1.7 Ethyl Alcohol Level LESS THAN 3 Hepatitis A IgM Antibody NEGATIVE Hepatitis B Surface Antigen POSITIVE Hepatitis B Core IgM Antibody REACTIVE Hepatitis C Antibody NEGATIVE HIV (1&2) Antibody NEGATIVE MDM Medical Record Reviewed: Yes Narrative Course / MDM 40 y/o admitted with elevated LFTs/jaundice, 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 Will give misoprostol 600 mcg po x 1. advised patient that bleeding and cramping may increase. Would recommend pain control with po or IV medication safest given liver damage. d/w pt that medication usually has effect within 24 hours, can repeat dose in 24 hours if needed recommend repeat beta hcg +/- ultrasound 24-48 hours after medication given. THank you for this consult Admitting diagnosis: Acute Liver Failure. Condition: Stable Scripts No Active Prescriptions or Reported Meds Walt Abraham MD Nov 19, 2016 15:29
[2016-11-19] MEDS ORDERED: MISOPROSTOL 100 MCG TAB PO ONE (15:30)
[2016-11-19] MEDS: IBUPROFEN 200 MG TAB PO PRN (19:46)
[2016-11-20] VITALS (7 sets, daily range): BP systolic 95–124; BP diastolic 53–80; PULSE 59–85; RESP 15–18; TEMP 96.6–98.4; O2SAT 95–100
[2016-11-20] MEDS: ONDANSETRON HCL 4 MG/2 ML VIAL IVP PRN ×3 (04:11→18:31)
[2016-11-20] MEDS: IBUPROFEN 200 MG TAB PO PRN ×2 (04:12→10:58)
[2016-11-20 07:25] LABS: INTERNATIONAL NORMALIZED RATIO 1.1 RATIO; PROTHROMBIN TIME - PATIENT 12.6 SEC (9.8-11.6)
[2016-11-20 07:30] LABS: AUTOMATED NEUTROPHIL # 3.8 TH/MM3 (1.8-7.7); BASOPHIL # 0.1 TH/MM3 (0-0.2); BASOPHIL % 1.1 % (0.0-2.0); EOSINOPHIL # 0.2 TH/MM3 (0-0.4); EOSINOPHIL % 2.4 % (0.0-4.0); HEMATOCRIT 30.9 % (35.0-46.0); HEMO FLAGS DIFF FINAL; LYMPH % 23.6 % (9.0-44.0); LYMPHOCYTE # 1.7 TH/MM3 (1.0-4.8); MEAN CELL VOLUME 88.8 FL (80.0-100.0); MEAN CORPUSCULAR HEMOGLOBIN 30.1 PG (27.0-34.0); MEAN CORPUSCULAR HGB CONC 33.9 % (32.0-36.0); MONO % 19.9 % (0.0-8.0); PLATELET COUNT 219 TH/MM3 (150-450); RED BLOOD COUNT 3.48 MIL/MM3 (4.00-5.30); RED CELL DISTRIBUTION WIDTH 22.1 % (11.6-17.2); WHITE BLOOD COUNT 7.1 TH/MM3 (4.0-11.0)
[2016-11-20 07:40] LABS: ANION GAP 8 MEQ/L (5-15); AST (GOT) 956 U/L (15-37); BICARBONATE 25.5 MEQ/L (21.0-32.0); BLOOD UREA NITROGEN 5 MG/DL (7-18); CHLORIDE 106 MEQ/L (98-107); GLOMERULAR FILTRATION RATE 89 ML/MIN (>89); POTASSIUM 3.9 MEQ/L (3.5-5.1); SODIUM (NA) 139 MEQ/L (136-145)
[2016-11-20 07:48] LABS: ALKALINE PHOSPHATASE 212 U/L (45-117); ALT (GPT) 823 U/L (10-53); TOTAL BILIRUBIN ADULT 12.4 MG/DL (0.2-1.0)
--- NOTE | 2016-11-20 08:48 | HHI.PR ---
Subjective History of Present Illness Patient feel weak and tired have jaundice GI input noted d/w RN urine tox screen positive for mirjuana. Review of Systems Constitutional Constitutional: Fatigue, Weakness Eyes Eyes Remarks yellow sclera. Integumentary Skin Remarks yellow discoloration of skin Vitals/Results Vital Signs Vital Signs Date Time Temp Pulse Resp B/P (MAP) Pulse Ox O2 Delivery O2 Flow Rate FiO2 11/20/16 04:00 97.4 77 18 110/55 (73) 95 11/20/16 02:41 98 11/20/16 00:00 97.8 75 17 106/56 (73) 98 11/19/16 20:00 99.6 73 17 103/56 (72) 98 11/19/16 17:32 99 21 11/19/16 16:00 98.1 76 18 102/63 (76) 98 11/19/16 12:00 97.7 74 18 105/56 (72) 99 11/19/16 09:34 97 CBC/BMP: 11/20/16 0553 11/20/16 0553 Lab Results Laboratory Tests Test 11/20/16 05:53 White Blood Count 7.1 TH/MM3 Red Blood Count 3.48 MIL/MM3 Hemoglobin 10.5 GM/DL Hematocrit 30.9 % Mean Corpuscular Volume 88.8 FL Mean Corpuscular Hemoglobin 30.1 PG Mean Corpuscular Hemoglobin Concent 33.9 % Red Cell Distribution Width 22.1 % Platelet Count 219 TH/MM3 Mean Platelet Volume 10.0 FL Neutrophils (%) (Auto) 53.0 % Lymphocytes (%) (Auto) 23.6 % Monocytes (%) (Auto) 19.9 % Eosinophils (%) (Auto) 2.4 % Basophils (%) (Auto) 1.1 % Neutrophils # (Auto) 3.8 TH/MM3 Lymphocytes # (Auto) 1.7 TH/MM3 Monocytes # (Auto) 1.4 TH/MM3 Eosinophils # (Auto) 0.2 TH/MM3 Basophils # (Auto) 0.1 TH/MM3 CBC Comment DIFF FINAL Differential Comment Prothrombin Time 12.6 SEC Prothromb Time International Ratio 1.1 RATIO Blood Urea Nitrogen 5 MG/DL Creatinine 0.73 MG/DL Random Glucose 78 MG/DL Total Protein 6.4 GM/DL Albumin 2.8 GM/DL Calcium Level 8.3 MG/DL Alkaline Phosphatase 212 U/L Aspartate Amino Transf (AST/SGOT) 956 U/L Alanine Aminotransferase (ALT/SGPT) 823 U/L Total Bilirubin 12.4 MG/DL Sodium Level 139 MEQ/L Potassium Level 3.9 MEQ/L Chloride Level 106 MEQ/L Carbon Dioxide Level 25.5 MEQ/L Anion Gap 8 MEQ/L Estimat Glomerular Filtration Rate 89 ML/MIN Physical Exam General General Appearance: Well Developed, Well Nourished, No Acute Distress, Comfortable Eyes Eye Exam: Pupils Equal, Pupils Reactive, Extraocular Movement Intact Eye Remarks yellow sclera. Throat Throat Exam: Oral Mucosa [place] & Moist, Oral Pharynx Normal Neck Neck Exam: Neck Supple, Trachea Midline Pulmonary Resp Exam: Clear Bilaterally, Breath Sounds Equal, No Distress Cardiology CV Exam: Normal Sinus Rhythm Gastrointestinal/Abdomen GI Exam: Soft, Non-Tender, Bowel Sounds Present Musculoskeletal MS Exam: Joints Intact, Normal Tone Integumentary Skin Exam: Warm, Dry, Jaundice Neurologic Neuro Exam: Alert, Awake, Oriented, Speech Clear, Moving All Extremities, No Focal Deficits Psychiatric Psych Exam: Appropriate Responses PUD Prophylasis PUD Prophylaxis: Protonix Assessment/Plan Assessment/Plan Admission Diagnosis (1) Acute LFTs abnormal secondary to acute hepatitis B Infection. (2) Asthma (3) Hypertension (4) Coronary artery disease (5) Incomplete (6) FEN/PX (7) Drug Abuse Urine tox screen positive for mirijuana. ( 8) Anemia. Plan: Mild Diffuse abdominal pain, high LFTs, and spontaneous . LFTs on admission: (11/18): 1179/961 Alk Phos: 263 Total bilirubin: 9.7 LFTs at last visit/missed ab dx (10/31): 418/711 Alk phos: 264 Total bilirubin: 1.3 As per record in 2012 LFT's were normal : Alk phos: 204 Total Bili: 0.4 PLAN - GI input noted. - f/u GI recs for imaging - UDS positive for Mirjuana - acetaminophen level noted - f/u hepatitis panel - NO TYLENOL - motrin PRN for pain - benadryl PRN for itching (2) Asthma ICD Codes: J45.909 - Unspecified asthma, uncomplicated Status: Chronic Plan: albuterol PRN (3) Hypertension ICD Codes: I10 - Essential (primary) hypertension Status: Chronic Plan: Controlled w/ labetalol TID during per patient - pt not currently taking - f/u BPs (4) Coronary artery disease ICD Codes: I25.10 - Atherosclerotic heart disease of [place] coronary artery without angina pectoris Status: Chronic Plan: CAD with " 3 leaky vessels" per pt - nuclear stress test and echo WNL - hold home medications (see list as per pmhx) (5) Incomplete ICD Codes: O03.4 - Incomplete spontaneous without complication Status: Acute Plan: Incomplete Ab; missed ab diagnosed on 10/29 with attempt let parts spontaneously abort. Confirmed 11/18 on pelvic U/S that gestational sac parts still in utero - f/u OBGYN consult recs: D&C vs. medical management (6) FEN/PX Status: Acute Plan: Fluids: Continue maintenance fluids Electrolytes: Potassium 3.3, f/u BMPs Nutrition: Clear liquid diet GIppx: not needed as now DVTppx: hold for now, SCDs, pending eval for possible D&C Discussed Condition with: Patient Prasanna Liriano MD Nov 20, 2016 08:48
[2016-11-20] MEDS: SODIUM CHLORIDE 0.9% FLUSH 10 ML FLUSH IV FLUSH SCH ×2 (08:49→21:00)
[2016-11-20] MEDS: SODIUM CHLOR 0.9% 1000 ML INJ 1,000 ML IV SCH ×2 (08:51→22:44)
[2016-11-20] MEDS: DOCUSATE SODIUM 50 MG/SENNA 8.6 MG TAB PO SCH ×2 (09:00→21:00)
[2016-11-20 11:54] LABS: ANA SCREEN NEG (NEG)
--- NOTE | 2016-11-20 14:29 | HHI.GIFU ---
Subjective Remarks Resting in bed. No n/v. Mild ruq discomfort and lower pelvic cramping. Tolerating diet (Lilian Martin) Objective Vitals I&O Vital Signs Date Time Temp Pulse Resp B/P (MAP) Pulse Ox O2 Delivery O2 Flow Rate FiO2 11/20/16 12:00 98.4 59 16 95/53 (67) 98 11/20/16 08:00 96.6 85 112/58 (76) 11/20/16 04:00 97.4 77 18 110/55 (73) 95 11/20/16 02:41 98 11/20/16 00:00 97.8 75 17 106/56 (73) 98 11/19/16 20:00 99.6 73 17 103/56 (72) 98 11/19/16 17:32 99 21 11/19/16 16:00 98.1 76 18 102/63 (76) 98 I/O 11/19/16 11/19/16 11/19/16 11/20/16 11/20/16 11/20/16 07:00 15:00 23:00 07:00 15:00 23:00 Intake Total 240 ml 1775 ml 240 ml Balance 240 ml 1775 ml 240 ml Intake Oral 240 ml 1775 ml 240 ml # Voids 3 11 # Bowel Movements 1 Laboratory Laboratory Tests Test 11/20/16 05:53 White Blood Count 7.1 Red Blood Count 3.48 Hemoglobin 10.5 Hematocrit 30.9 Mean Corpuscular Volume 88.8 Mean Corpuscular Hemoglobin 30.1 Mean Corpuscular Hemoglobin Concent 33.9 Red Cell Distribution Width 22.1 Platelet Count 219 Mean Platelet Volume 10.0 Neutrophils (%) (Auto) 53.0 Lymphocytes (%) (Auto) 23.6 Monocytes (%) (Auto) 19.9 Eosinophils (%) (Auto) 2.4 Basophils (%) (Auto) 1.1 Neutrophils # (Auto) 3.8 Lymphocytes # (Auto) 1.7 Monocytes # (Auto) 1.4 Eosinophils # (Auto) 0.2 Basophils # (Auto) 0.1 CBC Comment DIFF FINAL Differential Comment Prothrombin Time 12.6 Prothromb Time International Ratio 1.1 Blood Urea Nitrogen 5 Creatinine 0.73 Random Glucose 78 Total Protein 6.4 Albumin 2.8 Calcium Level 8.3 Alkaline Phosphatase 212 Aspartate Amino Transf (AST/SGOT) 956 Alanine Aminotransferase (ALT/SGPT) 823 Total Bilirubin 12.4 Sodium Level 139 Potassium Level 3.9 Chloride Level 106 Carbon Dioxide Level 25.5 Anion Gap 8 Estimat Glomerular Filtration Rate 89 Imaging Last Impressions Pelvis Ultrasound 11/18/16 1300 Signed Impressions: Service Date/Time: Friday, November 18, 2016 13:34 - CONCLUSION: 1. Findings most characteristic of in progress Frankie Casanova MD Gall Bladder Ultrasound 11/18/16 1300 Signed Impressions: Service Date/Time: Friday, November 18, 2016 13:21 - CONCLUSION: 1. Enlarged echogenic liver consistent with the hepatic steatosis versus medical liver disease. 2. Gallbladder is contracted which accentuates the gallbladder wall. However, there is diffuse gallbladder wall thickening with no pericholecystic fluid, stones or sonographic Villegas sign. Gallbladder wall thickening is commonly seen in patient's with underlying liver disease. If there is significant continued clinical concern, a HIDA scan may be performed to evaluate for cystic duct patency. Jose Yanes MD Physical Exam HEENT: Normocephalic; atraumatic; + jaundice. CHEST: CTA, Resp. even/unlabored CARDIAC: RRR ABDOMEN: Soft, nondistended, mild epigastric/ruq/lower abdominal discomfort; no hepatosplenomegaly; bowel sounds are present in all four quadrants. EXTREMITIES: No clubbing, cyanosis, or edema. SKIN: + jaundice. PANEL FLOW MACHINE OPERATOR: No focal deficits; alert and oriented times three. (Lilian Martin [facility]) Assessment and Plan Plan - Acute hepatitis B. Hepatitis B surface antigen (+), Hepatitis B Core IgM ab. GB US (11/18/16)----> Enlarged echogenic liver consistent with hepatic steatosis vs. medical liver disease. GB is contracted which accentuates the gallbladder wall. However, there is diffuse gallbladder wall thickening. However, there is diffuse gallbladder wall thickening with no pericholecystic fluid, stones, or sonographic Villegas sign. GB wall thickening is commonly seen in patient's with underlying liver disease. If there is continued clinical concern,a HIDA scan could be performed to evaluate patency of cystic duct. Denies ETOH use, illicit drug use, new medications other than labetolol (which she stopped 3 weeks ago). No herbal supplements. No new tattoo's, although her last tattoo was done during a tattoo libertarian at a friends house 10 years ago. (+) New sexual partner about 6 weeks ago. ? GB wall thickening related to acute hepatitis. Hepatitis panel (+) Acute hep b, Monoscreen negative, ABBY neg, AMA pending, ASMA pending, Acetaminophen < 2.0, Ethyl alcohol < 3, Cannabinoids (+), but opioids negative, Iron saturation 7.8%, Ferritin 32. Alpha 1 antitrypsin pending, Ceruloplasmin pending, AFP 4.6. LFTs trending down, 12.4, AST 956, 823, ALk Phosph 212. Plt 219. Ammonia 22. PT 12.6, INR 1.1. Pt with acute hepatitis b. Coag's are stable which is reassuring. D/W patient Hep B precautions. Will check for Hep B DNA PCR and Hep Be Ag. Supportive care. - Abdominal pain. Chronic intermittent RUQ pain. Now with mid abdominal/RUQ dull ache, radiating to back. Likely multifactorial secondary to acute hepatitis and possible ectopic . - Anemia. 10.5/30.9 - Hypokalemia. Improved - Suspected Ectopic in cervix. S/P Cytotec. D/W SUPERVISOR QUILTING, would like to give Methotrexate 75mg po x [address] Mckeon. PLAN: - SHAYLA, low fat - Hepatitis B DNA PCR - Hepatitis Be Ag - Await ASMA, AMA - Await Ceruloplasmin, Alpha 1 Antitrypsin - Monitor labs - Supportive care - Okay to give 1 time dose of Methotrexate, D/W OB, Dr. Mckeon - Further recommendations to follow after results of above - Pt seen and examined by Dr. Mckeon and myself and this note is written on his behalf (Lilian Martin) Plan Patient was seen and examined, agree with above-noted, acute hepatitis B, supportive care (Ifeanyi Mckeon MD) Lilian Martin Nov 20, 2016 14:29 Ifeanyi Mckeon MD Nov 20, 2016 15:40
--- NOTE | 2016-11-20 17:24 | PD.CONS ---
History & Physical H&P OB consult follow-up Patient is a 40-year-old white female is currently in the hospital for active hepatitis B with jaundice and elevated liver functions she also is early and is had some bleeding and cramping. She had an ultrasound done October 31 3 weeks ago shows a 6 week that appears to be implanted in the uterine cervix, there is no evidence of intrauterine in the corpus of the uterus only at the cervix right at the cervical isthmus, at that time a quantitative hCG was 12,400 was not given any methotrexate her medication she was told she was miscarrying that the was trying to move out of the uterus and was told it was a natural process and it will occur at that time she was having some spotting and cramping but not much, moving forward 3 weeks later she comes in with worsening hepatitis jaundice and elevation of her liver function. She has had some vaginal bleeding and cramping in the interim and now 3 weeks later ultrasound shows a markedly enlarged lower uterine segment cervical isthmus with the same sac but with of significant enlargement of and distortion of the tissue in the cervix at the isthmus that area is as large now as the uterine corpus is , more than doubled in size in 3 weeks, however quantitative hCG has decreased tenfold to now 1200 . Because cervical is a rare form of ectopic but a dangerous form due to the heavy bleeding that can occur spontaneously or certainly trying to do a D&C on this type of patient and unfortunately a lot of times hysterectomy is the end result Impression- cervical ectopic Plan is IM methotrexate 75 mg which is approximately 50 mg/m, and this is the treatment for essentially all ectopic patient's with intact ectopics other than abdominal will give the methotrexate now and she needs quantitative hCG G follow-up and a couple days and that if she is clinically asymptomatic potentially can discharge home at that time for follow-up as an outpatient with quantitative hCGs and serial ultrasounds weekly, [facility] is seen Dr. Perrin . contact Dr. Lauren Angelo and let him know the situation and treatment rendered and how he will help to follow-up as an outpatient following her blood work and ultrasound results. 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 I spoke to the patient she may see and elevation in some of her liver enzymes Bowen Correa II, MD Nov 20, 2016 17:24
[2016-11-20] MEDS ORDERED: [UNRECOGNIZED DRUG - OTHER] IM ONE (17:30)
[2016-11-20] MEDS ORDERED: METHOTREXATE SOD PF 50 MG/2 ML VIAL IM ONE (22:15)
[2016-11-21] VITALS: BP 110/69; PULSE 70; RESP 18; TEMP 97.4; O2SAT 98
[2016-11-21 04:00] VITALS: BP 104/66; PULSE 66; RESP 17; TEMP 97.7; O2SAT 96
[2016-11-21 07:36] LABS: AUTOMATED NEUTROPHIL # 3.2 TH/MM3 (1.8-7.7); BASOPHIL # 0.1 TH/MM3 (0-0.2); BASOPHIL % 0.8 % (0.0-2.0); EOSINOPHIL # 0.3 TH/MM3 (0-0.4); EOSINOPHIL % 4.3 % (0.0-4.0); HEMATOCRIT 29.8 % (35.0-46.0); HEMO FLAGS DIFF FINAL; LYMPH % 22.9 % (9.0-44.0); LYMPHOCYTE # 1.5 TH/MM3 (1.0-4.8); MEAN CELL VOLUME 89.1 FL (80.0-100.0); MEAN CORPUSCULAR HGB CONC 33.7 % (32.0-36.0); MONO % 21.4 % (0.0-8.0); NEUT % 50.6 % (16.0-70.0); PLATELET COUNT 204 TH/MM3 (150-450); RED BLOOD COUNT 3.35 MIL/MM3 (4.00-5.30); WHITE BLOOD COUNT 6.4 TH/MM3 (4.0-11.0)
[2016-11-21 08:05] LABS: ALT (GPT) 791 U/L (10-53); ANION GAP 7 MEQ/L (5-15); BICARBONATE 25.4 MEQ/L (21.0-32.0); BLOOD UREA NITROGEN 3 MG/DL (7-18); CHLORIDE 107 MEQ/L (98-107); GLOMERULAR FILTRATION RATE 93 ML/MIN (>89); POTASSIUM 3.5 MEQ/L (3.5-5.1); SODIUM (NA) 139 MEQ/L (136-145)
[2016-11-21 08:12] LABS: ALKALINE PHOSPHATASE 192 U/L (45-117); AST (GOT) 1014 U/L (15-37); TOTAL BILIRUBIN ADULT 13.2 MG/DL (0.2-1.0)
--- NOTE | 2016-11-21 08:24 | HHI.PR ---
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 Jesus Angelo and [facility] as to her follow-up as an outpatient with serial ultrasounds and lab work. I explained to the patient this morning that she should avoid high folate foods, avoid NSAIDs, vitamins or vitamins with folic acid medications as those counter act methotrexate ability to treat. She still having significant pain in the abdomen around her liver as well as pelvic pain is not severe but there and she can't take Tylenol for her liver and she can't take NSAIDs for the cervical so pain medication may be a oral oxycodone or morphine as needed Objective Vital Signs Date Time Temp Pulse Resp B/P (MAP) Pulse Ox O2 Delivery O2 Flow Rate FiO2 11/21/16 04:00 97.7 66 17 104/66 (79) 96 11/21/16 00:00 97.4 70 18 110/69 (83) 98 11/20/16 22:49 15 11/20/16 20:00 97.4 68 18 114/71 (85) 98 11/20/16 18:00 97.8 72 15 124/80 (95) 100 11/20/16 12:00 98.4 59 16 95/53 (67) 98 I/O 11/20/16 11/20/16 11/20/16 11/21/16 11/21/16 11/21/16 07:00 15:00 23:00 07:00 15:00 23:00 Intake Total 240 ml 1080 ml 480 ml Balance 240 ml 1080 ml 480 ml Intake Oral 240 ml 1080 ml 480 ml # Voids 7 2 # Bowel Movements 0 Result Diagram: 11/21/16 0550 11/21/16 0550 Assessment and Plan Assessment and Plan Cervical ectopic with falling quantitative hCGs over the last 3 weeks , however ultrasound findings the last 3 weeks markedly worse Treatment plan and is IM methotrexate and follow up with serial labs and ultrasounds Bowen Correa II, MD Nov 21, 2016 08:24
[2016-11-21] MEDS: ONDANSETRON HCL 4 MG/2 ML VIAL IVP PRN ×3 (08:37→21:34)
[2016-11-21] MEDS: DOCUSATE SODIUM 50 MG/SENNA 8.6 MG TAB PO SCH ×2 (08:41→20:24)
[2016-11-21] MEDS: SODIUM CHLOR 0.9% 1000 ML INJ 1,000 ML IV SCH ×2 (08:41→15:32)
[2016-11-21] MEDS: SODIUM CHLORIDE 0.9% FLUSH 10 ML FLUSH IV FLUSH SCH ×2 (08:41→20:18)
[2016-11-21 08:50] VITALS: BP 97/55; PULSE 67; RESP 19; TEMP 98; O2SAT 100
--- NOTE | 2016-11-21 11:36 | HHI.PR ---
Subjective History of Present Illness Patient feel weak and tired have Acute hepatitis B ...GI Managing. have yellow skin and sclera. Review of Systems Constitutional Constitutional: Fatigue, Weakness Eyes Eyes Remarks Yellow sclera. GI/Abdomen GI/Abdominal Exam: Abdominal Pain Integumentary Skin Remarks yellow discoloration of skin. Vitals/Results Vital Signs Vital Signs Date Time Temp Pulse Resp B/P (MAP) Pulse Ox O2 Delivery O2 Flow Rate FiO2 11/21/16 08:50 98.0 67 19 97/55 (69) 100 11/21/16 04:00 97.7 66 17 104/66 (79) 96 11/21/16 00:00 97.4 70 18 110/69 (83) 98 11/20/16 22:49 15 11/20/16 20:00 97.4 68 18 114/71 (85) 98 11/20/16 18:00 97.8 72 15 124/80 (95) 100 11/20/16 12:00 98.4 59 16 95/53 (67) 98 CBC/BMP: 11/21/16 0550 11/21/16 0550 Lab Results Laboratory Tests Test 11/21/16 05:50 White Blood Count 6.4 TH/MM3 Red Blood Count 3.35 MIL/MM3 Hemoglobin 10.1 GM/DL Hematocrit 29.8 % Mean Corpuscular Volume 89.1 FL Mean Corpuscular Hemoglobin 30.0 PG Mean Corpuscular Hemoglobin Concent 33.7 % Red Cell Distribution Width 22.0 % Platelet Count 204 TH/MM3 Mean Platelet Volume 10.1 FL Neutrophils (%) (Auto) 50.6 % Lymphocytes (%) (Auto) 22.9 % Monocytes (%) (Auto) 21.4 % Eosinophils (%) (Auto) 4.3 % Basophils (%) (Auto) 0.8 % Neutrophils # (Auto) 3.2 TH/MM3 Lymphocytes # (Auto) 1.5 TH/MM3 Monocytes # (Auto) 1.4 TH/MM3 Eosinophils # (Auto) 0.3 TH/MM3 Basophils # (Auto) 0.1 TH/MM3 CBC Comment DIFF FINAL Differential Comment Blood Urea Nitrogen 3 MG/DL Creatinine 0.70 MG/DL Random Glucose 91 MG/DL Total Protein 6.0 GM/DL Albumin 2.6 GM/DL Calcium Level 7.7 MG/DL Alkaline Phosphatase 192 U/L Aspartate Amino Transf (AST/SGOT) 1014 U/L Alanine Aminotransferase (ALT/SGPT) 791 U/L Total Bilirubin 13.2 MG/DL Sodium Level 139 MEQ/L Potassium Level 3.5 MEQ/L Chloride Level 107 MEQ/L Carbon Dioxide Level 25.4 MEQ/L Anion Gap 7 MEQ/L Estimat Glomerular Filtration Rate 93 ML/MIN Physical Exam General General Appearance: Well Developed, Well Nourished, No Acute Distress, Comfortable Eyes Eye Exam: Pupils Equal, Pupils Reactive, Extraocular Movement Intact Eye Remarks yellow sclera. Throat Throat Exam: Oral Mucosa [place] & Moist, Oral Pharynx Normal Neck Neck Exam: Neck Supple, Trachea Midline Pulmonary Resp Exam: Clear Bilaterally, Breath Sounds Equal Cardiology CV Exam: Regular, Normal Sinus Rhythm Gastrointestinal/Abdomen GI Exam: Soft, Bowel Sounds Present GI Remarks mild right upper quadrant tenderness. Musculoskeletal MS Exam: Joints Intact Integumentary Skin Exam: Warm, Dry, Jaundice Extremeties Extremities Exam: No Edema Neurologic Neuro Exam: Alert, Awake, Oriented, Speech Clear, Moving All Extremities, No Focal Deficits VTE Prophylaxis VTE Prophylaxis Device: SCDs Assessment/Plan Assessment/Plan Assessment/Plan (1) Acute LFTs abnormal secondary to acute hepatitis B Infection. (2) Asthma (3) Hypertension (4) Coronary artery disease (5) Incomplete (6) FEN/PX (7) Drug Abuse Urine tox screen positive for mirijuana. ( 8) Anemia. Plan: Mild Diffuse abdominal pain, high LFTs, and spontaneous . LFTs on admission: (11/18): 1179/961 Alk Phos: 263 Total bilirubin: 9.7 LFTs at last visit/missed ab dx (10/31): 418/711 Alk phos: 264 Total bilirubin: 1.3 As per record in 2012 LFT's were normal : Alk phos: 204 Total Bili: 0.4 LFTs Down trend PLAN - GI input noted. - f/u GI recs for imaging - UDS positive for Mirjuana - acetaminophen level noted - f/u hepatitis panel - NO TYLENOL - motrin PRN for pain - benadryl PRN for itching (2) Asthma ICD Codes: J45.909 - Unspecified asthma, uncomplicated Status: Chronic Plan: albuterol PRN (3) Hypertension ICD Codes: I10 - Essential (primary) hypertension Status: Chronic Plan: Controlled w/ labetalol TID during per patient - pt not currently taking - f/u BPs Check CBC with diff CMP in AM. Discussed Condition with: Patient Prasanna Liriano MD Nov 21, 2016 11:36
[2016-11-21 11:50] LABS: MITOCHONDRIAL ABS LESS THAN 20.0 U (<=20.0)
[2016-11-21 12:14] VITALS: BP 101/58; PULSE 75; RESP 19; TEMP 98.2; O2SAT 99
--- NOTE | 2016-11-21 14:29 | HHI.GIFU ---
Subjective Remarks Resting in bed. C/O nausea, lower abdominal cramping. Feels flushed, but no fever. (Lilian Martin) Objective Vitals I&O Vital Signs Date Time Temp Pulse Resp B/P (MAP) Pulse Ox O2 Delivery O2 Flow Rate FiO2 11/21/16 12:14 98.2 75 19 101/58 (72) 99 11/21/16 08:50 98.0 67 19 97/55 (69) 100 11/21/16 04:00 97.7 66 17 104/66 (79) 96 11/21/16 00:00 97.4 70 18 110/69 (83) 98 11/20/16 22:49 15 11/20/16 20:00 97.4 68 18 114/71 (85) 98 11/20/16 18:00 97.8 72 15 124/80 (95) 100 I/O 11/20/16 11/20/16 11/20/16 11/21/16 11/21/16 11/21/16 07:00 15:00 23:00 07:00 15:00 23:00 Intake Total 240 ml 1080 ml 480 ml Balance 240 ml 1080 ml 480 ml Intake Oral 240 ml 1080 ml 480 ml # Voids 7 2 # Bowel Movements 0 Laboratory Laboratory Tests Test 11/21/16 05:50 White Blood Count 6.4 Red Blood Count 3.35 Hemoglobin 10.1 Hematocrit 29.8 Mean Corpuscular Volume 89.1 Mean Corpuscular Hemoglobin 30.0 Mean Corpuscular Hemoglobin Concent 33.7 Red Cell Distribution Width 22.0 Platelet Count 204 Mean Platelet Volume 10.1 Neutrophils (%) (Auto) 50.6 Lymphocytes (%) (Auto) 22.9 Monocytes (%) (Auto) 21.4 Eosinophils (%) (Auto) 4.3 Basophils (%) (Auto) 0.8 Neutrophils # (Auto) 3.2 Lymphocytes # (Auto) 1.5 Monocytes # (Auto) 1.4 Eosinophils # (Auto) 0.3 Basophils # (Auto) 0.1 CBC Comment DIFF FINAL Differential Comment Blood Urea Nitrogen 3 Creatinine 0.70 Random Glucose 91 Total Protein 6.0 Albumin 2.6 Calcium Level 7.7 Alkaline Phosphatase 192 Aspartate Amino Transf (AST/SGOT) 1014 Alanine Aminotransferase (ALT/SGPT) 791 Total Bilirubin 13.2 Sodium Level 139 Potassium Level 3.5 Chloride Level 107 Carbon Dioxide Level 25.4 Anion Gap 7 Estimat Glomerular Filtration Rate 93 Imaging Last Impressions Pelvis Ultrasound 11/18/16 1300 Signed Impressions: Service Date/Time: Friday, November 18, 2016 13:34 - CONCLUSION: 1. Findings most characteristic of in progress Frankie Casanova MD Gall Bladder Ultrasound 11/18/16 1300 Signed Impressions: Service Date/Time: Friday, November 18, 2016 13:21 - CONCLUSION: 1. Enlarged echogenic liver consistent with the hepatic steatosis versus medical liver disease. 2. Gallbladder is contracted which accentuates the gallbladder wall. However, there is diffuse gallbladder wall thickening with no pericholecystic fluid, stones or sonographic Villegas sign. Gallbladder wall thickening is commonly seen in patient's with underlying liver disease. If there is significant continued clinical concern, a HIDA scan may be performed to evaluate for cystic duct patency. Jose Yanes MD Physical Exam HEENT: Normocephalic; atraumatic; + jaundice. CHEST: CTA, Resp. even/unlabored CARDIAC: RRR ABDOMEN: Soft, nondistended, mild epigastric/ruq/lower abdominal discomfort; no hepatosplenomegaly; bowel sounds are present in all four quadrants. EXTREMITIES: No clubbing, cyanosis, or edema. SKIN: + jaundice. MEDICAL PRACTITIONERS: No focal deficits; alert and oriented times three. (Lilian Martin) Assessment and Plan Plan ASSESSMENT: - Acute hepatitis B. Hepatitis B surface antigen (+), Hepatitis B Core IgM ab. GB US (11/18/16)----> Enlarged echogenic liver consistent with hepatic steatosis vs. medical liver disease. GB is contracted which accentuates the gallbladder wall. However, there is diffuse gallbladder wall thickening. However, there is diffuse gallbladder wall thickening with no pericholecystic fluid, stones, or sonographic Villegas sign. GB wall thickening is commonly seen in patient's with underlying liver disease. If there is continued clinical concern,a HIDA scan could be performed to evaluate patency of cystic duct. Denies ETOH use, illicit drug use, new medications other than labetolol (which she stopped 3 weeks ago). No herbal supplements. No new tattoo's, although her last tattoo was done during a tattoo democrat at a friends house 10 years ago. (+) New sexual partner about 6 weeks ago. ? GB wall thickening related to acute hepatitis. Hepatitis panel (+) Acute hep b, Monoscreen negative, ABBY neg, AMA <20.0, ASMA neg, Acetaminophen < 2.0, Ethyl alcohol < 3, Cannabinoids (+), but opioids negative, Iron saturation 7.8%, Ferritin 32. Alpha 1 antitrypsin 183, Ceruloplasmin pending, AFP 4.6. LFTs about the same. T. Bili 13.2 AST 1014 , 791, ALk Phosph 212. Plt 204. Ammonia 22. PT 12.6, INR 1.1. Pt with acute hepatitis b. Coag's are stable which is reassuring. D/W patient Hep B precautions. Hep B DNA PCR and Hep Be Ag pending. Did have Methotrexate x1. Hopefully, her LFTs start to trend down in the next day or two. Supportive care. - Abdominal pain. Chronic intermittent RUQ pain. Now with mid abdominal/RUQ dull ache, radiating to back. Likely multifactorial secondary to acute hepatitis and possible ectopic . - Anemia. 10.03/24.8. - Hypokalemia. Improved - Suspected Ectopic in cervix. S/P Cytotec. 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 Mckeon. PLAN: - SHAYLA, low fat - Await Hepatitis B DNA PCR - Await Hepatitis Be Ag - Await Ceruloplasmin - Monitor labs - Supportive care - Pain meds per attending - Further recommendations to follow after results of above - Pt seen and examined by Dr. Mckeon and myself and this note is written on his behalf (Lilian Martin) Plan Patient was seen and examined, agree with above note, we'll continue monitoring liver function test, (Ifeaniy Mckeon MD) Lilian Martin Nov 21, 2016 14:29 Ifeanyi Mckeon MD Nov 21, 2016 16:07
[2016-11-21 16:45] VITALS: BP 103/61; PULSE 66; RESP 19; TEMP 98.1; O2SAT 99
[2016-11-21 20:00] VITALS: BP 106/61; PULSE 74; RESP 18; TEMP 98.6; O2SAT 98
[2016-11-22] VITALS: BP 93/51; PULSE 66; RESP 18; TEMP 97.7; O2SAT 97
[2016-11-22] MEDS: SODIUM CHLOR 0.9% 1000 ML INJ 1,000 ML IV SCH ×3 (03:40→21:31)
[2016-11-22] MEDS: ONDANSETRON HCL 4 MG/2 ML VIAL IVP PRN ×4 (03:40→21:31)
[2016-11-22 04:00] VITALS: BP 103/57; PULSE 70; RESP 18; TEMP 97.9; O2SAT 95
[2016-11-22] MEDS: SODIUM CHLORIDE 0.9% FLUSH 10 ML FLUSH IV FLUSH SCH ×2 (07:41→21:00)
[2016-11-22 08:00] VITALS: BP 102/61; PULSE 61; RESP 16; TEMP 97; O2SAT 95
[2016-11-22] MEDS: DOCUSATE SODIUM 50 MG/SENNA 8.6 MG TAB PO SCH ×2 (08:40→21:31)
[2016-11-22 09:12] LABS: OBMETHADONE UR NEG (NEG); PHENCYCLIDINE URINE NEG (NEG)
[2016-11-22 09:13] LABS: BATH SALTS (MDPV) UR NEG (NEG); ECSTASY (MDMA) UR NEG (NEG); HEROIN (6-ACETYLMORPHINE) UR NEG (NEG); K2 SPICE UR NEG (NEG)
[2016-11-22 09:14] LABS: GABAPENTIN UR NEG (NEG); HYDROMORPHONE U NEG (NEG)
[2016-11-22 10:56] LABS: BETA HCG QUANT 1140 MIU/ML (0-5)
--- NOTE | 2016-11-22 11:39 | HHI.PR ---
Subjective Remarks Pt reports feeling better this morning. Minimal bleeding. Occasional cramping. Otherwise, reports doing better. Objective Vital Signs Date Time Temp Pulse Resp B/P (MAP) Pulse Ox O2 Delivery O2 Flow Rate FiO2 11/22/16 08:00 97.0 61 16 102/61 (75) 95 11/22/16 04:00 97.9 70 18 103/57 (72) 95 11/22/16 00:00 97.7 66 18 93/51 (65) 97 11/21/16 20:00 98.6 74 18 106/61 (76) 98 11/21/16 16:45 98.1 66 19 103/61 (75) 99 11/21/16 12:14 98.2 75 19 101/58 (72) 99 I/O 11/21/16 11/21/16 11/21/16 11/22/16 11/22/16 11/22/16 07:00 15:00 23:00 07:00 15:00 23:00 Intake Total 480 ml 1640 ml 220 ml Output Total 300 ml 320 ml Balance 480 ml 1340 ml -100 ml Intake Oral 480 ml 640 ml 220 ml IV Total 1000 ml Output Urine Total 300 ml 320 ml # Voids 2 4 # Bowel Movements 1 0 Result Diagram: 11/21/16 0550 11/21/16 0550 Objective Remarks GENERAL: NAD SKIN: Improved jaundice of skin/icterus CARDIOVASCULAR: Regular rate and rhythm. RESPIRATORY: No accessory muscle use. Clear to auscultation. Breath sounds equal bilaterally. GASTROINTESTINAL: Abdomen soft, non-distended. Some tenderness to palpation in lower abdomen. MUSCULOSKELETAL: Extremities without clubbing, cyanosis, or edema. No obvious deformities. PSYCHIATRIC: Appropriate mood and affect; insight and judgment normal. Assessment and Plan Assessment and Plan 40 y/o with ectopic, cervical . Given 1 dose of 75mg methotrexate HCG downtrending to 1140 this morning. -S/p methotrexate -Trend serial HCGs and ultrasounds Discussed Condition With Messi Barton MD, R2 Nov 22, 2016 11:39
--- NOTE | 2016-11-22 11:44 | HHI.PR ---
Subjective History of Present Illness Patient feel weak and tired have jaundice no fever/ chills Review of Systems Constitutional Constitutional: Fatigue, Weakness Eyes Eyes Remarks yellow sclera. GI/Abdomen GI/Abdominal Exam: Abdominal Pain Integumentary Skin Remarks yellowish discoloration of skin Vitals/Results Vital Signs Vital Signs Date Time Temp Pulse Resp B/P (MAP) Pulse Ox O2 Delivery O2 Flow Rate FiO2 11/22/16 08:00 97.0 61 16 102/61 (75) 95 11/22/16 04:00 97.9 70 18 103/57 (72) 95 11/22/16 00:00 97.7 66 18 93/51 (65) 97 11/21/16 20:00 98.6 74 18 106/61 (76) 98 11/21/16 16:45 98.1 66 19 103/61 (75) 99 11/21/16 12:14 98.2 75 19 101/58 (72) 99 CBC/BMP: 11/21/16 0550 11/21/16 0550 Lab Results Laboratory Tests Test 11/22/16 09:26 Human Chorionic Gonadotropin, Quant 1140 MIU/ML Physical Exam General General Appearance: Well Developed, Well Nourished, No Acute Distress, Comfortable Eyes Eye Exam: Pupils Equal, Pupils Reactive, Extraocular Movement Intact Eye Remarks yellow sclera. Throat Throat Exam: Oral Mucosa [place] & Moist, Oral Pharynx Normal Neck Neck Exam: Neck Supple, Trachea Midline Pulmonary Resp Exam: Clear Bilaterally, Breath Sounds Equal Cardiology CV Exam: Regular, Normal Sinus Rhythm Gastrointestinal/Abdomen GI Exam: Soft, Bowel Sounds Present GI Remarks mild right upper quadrant tenderness. Musculoskeletal MS Exam: Joints Intact Integumentary Skin Exam: Warm, Dry, Jaundice Extremeties Extremities Exam: No Edema Neurologic Neuro Exam: Alert, Awake, Oriented, Speech Clear, Moving All Extremities, Armor Reconnaissance Vehicle Driver Equal, No Focal Deficits Psychiatric Psych Exam: Appropriate Responses VTE Prophylaxis VTE Prophylaxis Device: SCDs Assessment/Plan Assessment/Plan Assessment/Plan Admission Diagnosis (1) Acute LFTs abnormal secondary to acute hepatitis B Infection. (2) Asthma (3) Hypertension (4) Coronary artery disease (5) Incomplete (6) FEN/PX (7) Drug Abuse Urine tox screen positive for mirijuana. ( 8) Anemia. Plan: Mild Diffuse abdominal pain, high LFTs, and spontaneous . LFTs on admission: (11/18): 1179/961 Alk Phos: 263 Total bilirubin: 9.7 LFTs at last visit/missed ab dx (10/31): 418/711 Alk phos: 264 Total bilirubin: 1.3 As per record in 2012 LFT's were normal : Alk phos: 204 Total Bili: 0.4 LFTs Down trend. PLAN - GI input noted. - f/u GI recs for imaging - UDS positive for Mirjuana - acetaminophen level noted - NO TYLENOL - motrin PRN for pain - benadryl PRN for itching Anti smooth muscle and antimichondrial antibodies negative. (2) Asthma ICD Codes: J45.909 - Unspecified asthma, uncomplicated Status: Chronic Plan: albuterol PRN (3) Hypertension ICD Codes: I10 - Essential (primary) hypertension Status: Chronic Plan: Controlled w/ labetalol TID during per patient - pt not currently taking - f/u BPs Check CBC with CMP in AM. Discussed Condition with: Patient Prasanna Liriano MD Nov 22, 2016 11:44
[2016-11-22 12:30] VITALS: BP 96/56; PULSE 70; RESP 16; TEMP 98.1; O2SAT 100
[2016-11-22 16:00] VITALS: BP 110/59; PULSE 74; RESP 16; TEMP 97.8; O2SAT 98
--- NOTE | 2016-11-22 18:15 | HHI.GIFU ---
Subjective Remarks Patient laying in bed, seems to be in less pain and more comfortable than yesterday, still very jaundice, frustrated with her situation Objective Vitals I&O Vital Signs Date Time Temp Pulse Resp B/P (MAP) Pulse Ox O2 Delivery O2 Flow Rate FiO2 11/22/16 16:33 16 11/22/16 12:30 98.1 70 16 96/56 (69) 100 11/22/16 08:00 97.0 61 16 102/61 (75) 95 11/22/16 04:00 97.9 70 18 103/57 (72) 95 11/22/16 00:00 97.7 66 18 93/51 (65) 97 11/21/16 20:00 98.6 74 18 106/61 (76) 98 I/O 11/21/16 11/21/16 11/21/16 11/22/16 11/22/16 11/22/16 07:00 15:00 23:00 07:00 15:00 23:00 Intake Total 480 ml 1640 ml 220 ml 505 ml Output Total 300 ml 320 ml Balance 480 ml 1340 ml -100 ml 505 ml Intake Oral 480 ml 640 ml 220 ml IV Total 1000 ml 505 ml Output Urine Total 300 ml 320 ml # Voids 2 4 # Bowel Movements 1 0 Laboratory Laboratory Tests Test 11/22/16 09:26 Human Chorionic Gonadotropin, Quant 1140 Physical Exam HEENT: Normocephalic; atraumatic; + jaundice. CHEST: CTA, Resp. even/unlabored CARDIAC: RRR ABDOMEN: Soft, nondistended, mild epigastric/ruq/lower abdominal discomfort; no hepatosplenomegaly; bowel sounds are present in all four quadrants. EXTREMITIES: No clubbing, cyanosis, or edema. SKIN: + jaundice. CAPTAIN OF GUARDS: No focal deficits; alert and oriented times three. Assessment and Plan Plan Patient was seen and examined, she has acute hepatitis B, workup still in progress, she received methotrexate to try to induce miscarriage Recommendation Await remaining of the lab Repeat LFT tomorrow Continue healthy diet Continue supportive care Ifeanyi Mckeon MD Nov 22, 2016 18:15
[2016-11-22 20:00] VITALS: BP 106/60; PULSE 74; RESP 18; TEMP 98.1; O2SAT 98
[2016-11-23] VITALS: BP 98/58; PULSE 70; RESP 17; TEMP 96.1; O2SAT 97
[2016-11-23 04:00] VITALS: BP 101/65; PULSE 64; RESP 18; TEMP 96.6; O2SAT 98
[2016-11-23] MEDS: ONDANSETRON HCL 4 MG/2 ML VIAL IVP PRN ×4 (04:19→23:35)
[2016-11-23] MEDS: SODIUM CHLOR 0.9% 1000 ML INJ 1,000 ML IV SCH ×2 (04:19→16:54)
[2016-11-23 07:56] LABS: INTERNATIONAL NORMALIZED RATIO 1.2 RATIO
[2016-11-23 08:01] LABS: HEMATOCRIT 27.9 % (35.0-46.0); MEAN CELL VOLUME 88.1 FL (80.0-100.0); MEAN CORPUSCULAR HEMOGLOBIN 30.4 PG (27.0-34.0); MEAN CORPUSCULAR HGB CONC 34.5 % (32.0-36.0); PLATELET COUNT 199 TH/MM3 (150-450); RED BLOOD COUNT 3.17 MIL/MM3 (4.00-5.30); RED CELL DISTRIBUTION WIDTH 22.1 % (11.6-17.2); WHITE BLOOD COUNT 5.3 TH/MM3 (4.0-11.0)
[2016-11-23 08:05] LABS: HEMO FLAGS AUTO DIFF
[2016-11-23 08:16] LABS: ANION GAP 8 MEQ/L (5-15); AST (GOT) 696 U/L (15-37); BICARBONATE 24.8 MEQ/L (21.0-32.0); BLOOD UREA NITROGEN 3 MG/DL (7-18); CHLORIDE 105 MEQ/L (98-107); GLOMERULAR FILTRATION RATE 111 ML/MIN (>89); POTASSIUM 3.2 MEQ/L (3.5-5.1); SODIUM (NA) 138 MEQ/L (136-145)
[2016-11-23 08:17] LABS: ALT (GPT) 618 U/L (10-53)
[2016-11-23 08:21] LABS: ALKALINE PHOSPHATASE 178 U/L (45-117)
--- NOTE | 2016-11-23 08:40 | PD.CONS ---
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
[2016-11-23 08:49] LABS: EOSINOPHILS 8 % (0-4); NEUTROPHIL # MANUAL DIFF 2.7 TH/MM3 (1.8-7.7); PLATELET ESTIMATE SMEAR NORMAL (NORMAL); PLATELET MORPHOLOGY NORMAL (NORMAL); POLYS (SEG NEUTROPHILS) 50 % (16-70); SCAN/DIFF FINAL DIFF MANUAL; WBC DIFF SAMPLE 100
[2016-11-23 08:50] VITALS: BP 98/62; PULSE 92; RESP 19; TEMP 97.5; O2SAT 97
[2016-11-23] MEDS: SODIUM CHLORIDE 0.9% FLUSH 10 ML FLUSH IV FLUSH SCH ×2 (09:25→20:31)
[2016-11-23] MEDS: DOCUSATE SODIUM 50 MG/SENNA 8.6 MG TAB PO SCH ×2 (09:25→20:30)
[2016-11-23 11:53] LABS: HEP B DNA R1 8440000 IU/mL (0-19); HEP B DNA R2 6.93 (<1.30)
--- NOTE | 2016-11-23 12:14 | HHI.GIFU ---
Subjective Remarks Followup for Hepatitis. Lying in bed in no apparent distress. (Talisha Oh) Objective Vitals I&O Vital Signs Date Time Temp Pulse Resp B/P (MAP) Pulse Ox O2 Delivery O2 Flow Rate FiO2 11/23/16 08:50 97.5 92 19 98/62 (74) 97 11/23/16 04:00 96.6 64 18 101/65 (77) 98 11/23/16 00:00 96.1 70 17 98/58 (71) 97 11/22/16 20:00 98.1 74 18 106/60 (75) 98 11/22/16 16:33 16 11/22/16 16:00 97.8 74 16 110/59 (76) 98 11/22/16 12:30 98.1 70 16 96/56 (69) 100 I/O 11/22/16 11/22/16 11/22/16 11/23/16 11/23/16 11/23/16 07:00 15:00 23:00 07:00 15:00 23:00 Intake Total 220 ml 2065 ml 480 ml Output Total 320 ml Balance -100 ml 2065 ml 480 ml Intake Oral 220 ml 1560 ml 480 ml IV Total 505 ml Output Urine Total 320 ml # Voids 10 5 # Bowel Movements 0 1 Laboratory Laboratory Tests Test 11/23/16 06:08 White Blood Count 5.3 Red Blood Count 3.17 Hemoglobin 9.6 Hematocrit 27.9 Mean Corpuscular Volume 88.1 Mean Corpuscular Hemoglobin 30.4 Mean Corpuscular Hemoglobin Concent 34.5 Red Cell Distribution Width 22.1 Platelet Count 199 Mean Platelet Volume 10.2 CBC Comment AUTO DIFF Differential Total Cells Counted 100 Neutrophils % (Manual) 50 Lymphocytes % 24 Monocytes % 18 Eosinophils % 8 Neutrophils # (Manual) 2.7 Differential Comment FINAL DIFF MANUAL Platelet Estimate NORMAL Platelet Morphology Comment NORMAL Prothrombin Time 13.0 Prothromb Time International Ratio 1.2 Blood Urea Nitrogen 3 Creatinine 0.60 Random Glucose 81 Total Protein 5.7 Albumin 2.5 Calcium Level 8.0 Alkaline Phosphatase 178 Aspartate Amino Transf (AST/SGOT) 696 Alanine Aminotransferase (ALT/SGPT) 618 Total Bilirubin 14.0 Sodium Level 138 Potassium Level 3.2 Chloride Level 105 Carbon Dioxide Level 24.8 Anion Gap 8 Estimat Glomerular Filtration Rate 111 Imaging Last Impressions Pelvis Ultrasound 9/25/17 1300 Signed Impressions: Service Date/Time: Friday, November 18, 2016 13:34 - CONCLUSION: 1. Findings most characteristic of in progress Frankie Casanova MD Gall Bladder Ultrasound 11/18/16 1300 Signed Impressions: Service Date/Time: Friday, November 18, 2016 13:21 - CONCLUSION: 1. Enlarged echogenic liver consistent with the hepatic steatosis versus medical liver disease. 2. Gallbladder is contracted which accentuates the gallbladder wall. However, there is diffuse gallbladder wall thickening with no pericholecystic fluid, stones or sonographic Villegas sign. Gallbladder wall thickening is commonly seen in patient's with underlying liver disease. If there is significant continued clinical concern, a HIDA scan may be performed to evaluate for cystic duct patency. Jose Yanes MD Physical Exam HEENT: Normocephalic; atraumatic; + scleral icterus CHEST: CTA CARDIAC: RRR ABDOMEN: Soft, nondistended, mild abdominal tenderness; bowel sounds are present EXTREMITIES: No clubbing, cyanosis, or edema. SKIN: + jaundice. GEAR FINISHER: No focal deficits; alert and oriented x 3. (Talisha Oh) Assessment and Plan Plan ASSESSMENT: - Acute hepatitis B. Hepatitis B surface antigen (+), Hepatitis B Core IgM ab. GB US (11/18/16)----> Enlarged echogenic liver consistent with hepatic steatosis vs. medical liver disease. GB is contracted which accentuates the gallbladder wall. However, there is diffuse gallbladder wall thickening. However, there is diffuse gallbladder wall thickening with no pericholecystic fluid, stones, or sonographic Villegas sign. GB wall thickening is commonly seen in patient's with underlying liver disease. If there is continued clinical concern,a HIDA scan could be performed to evaluate patency of cystic duct. Denies ETOH use, illicit drug use, new medications other than labetolol (which she stopped 3 weeks ago). No herbal supplements. No new tattoo's, although her last tattoo was done during a tattoo libertarian at a [employer] house 10 years ago. (+) New sexual partner about 6 weeks ago. ? GB wall thickening related to acute hepatitis. Hepatitis panel (+) Acute hep b, Monoscreen negative, ABBY neg, AMA <20.0, ASMA neg, Acetaminophen < 2.0, Ethyl alcohol < 3, Cannabinoids (+), but opioids negative, Iron saturation 7.8%, Ferritin 32. Alpha 1 antitrypsin 183, Ceruloplasmin 40, AFP 4.6. Liver function trending down. AST 696, ALT 618, ALK PHOS 178. T. Bili 14.0. Plt 199. Ammonia 22 (11/18). PT 13.0, INR 1.2. Pt with acute hepatitis b. Coag's are stable which is reassuring. D/W patient Hep B precautions. Hep B DNA [id number]. Hep Be Ag pending. Did have Methotrexate x1. Supportive care. - Abdominal pain. Chronic intermittent RUQ pain. Now with mid abdominal/RUQ dull ache, radiating to back. Likely multifactorial secondary to acute hepatitis and possible ectopic . - Anemia. 9.6/27.9 - Hypokalemia. K 3.2 - Suspected Ectopic in cervix. S/P Cytotec. 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 Mckeon and myself and this note is written on his behalf (Talisha Oh) Plan Patient was seen and examined, agree with above note, acute hepatitis B, liver function test is improving, we'll continue monitoring, follow-up as an outpatient (Ifeanyi Mckeon MD) Talisha Oh Nov 23, 2016 12:14 Ifeanyi Mckeon MD Nov 23, 2016 20:41
[2016-11-23 12:35] VITALS: BP 97/58; PULSE 61; RESP 19; TEMP 97.4; O2SAT 99
[2016-11-23 16:09] VITALS: BP 135/75; PULSE 80; RESP 19; TEMP 98.3; O2SAT 99
--- NOTE | 2016-11-23 16:15 | HHI.PR ---
Subjective History of Present Illness Patient same feel weak and tired. Review of Systems Constitutional Constitutional: Fatigue, Weakness Eyes Eyes Remarks yellow sclera. GI/Abdomen GI/Abdominal Exam: Abdominal Pain Integumentary Skin Remarks Yellow discoloration of skin. Vitals/Results Vital Signs Vital Signs Date Time Temp Pulse Resp B/P (MAP) Pulse Ox O2 Delivery O2 Flow Rate FiO2 11/23/16 12:35 97.4 61 19 97/58 (71) 99 11/23/16 08:50 97.5 92 19 98/62 (74) 97 11/23/16 04:00 96.6 64 18 101/65 (77) 98 11/23/16 00:00 96.1 70 17 98/58 (71) 97 11/22/16 20:00 98.1 74 18 106/60 (75) 98 11/22/16 16:33 16 CBC/BMP: 11/23/16 0608 11/23/16 0608 Lab Results Laboratory Tests Test 11/23/16 06:08 White Blood Count 5.3 TH/MM3 Red Blood Count 3.17 MIL/MM3 Hemoglobin 9.6 GM/DL Hematocrit 27.9 % Mean Corpuscular Volume 88.1 FL Mean Corpuscular Hemoglobin 30.4 PG Mean Corpuscular Hemoglobin Concent 34.5 % Red Cell Distribution Width 22.1 % Platelet Count 199 TH/MM3 Mean Platelet Volume 10.2 FL CBC Comment AUTO DIFF Differential Total Cells Counted 100 Neutrophils % (Manual) 50 % Lymphocytes % 24 % Monocytes % 18 % Eosinophils % 8 % Neutrophils # (Manual) 2.7 TH/MM3 Differential Comment FINAL DIFF MANUAL Platelet Estimate NORMAL Platelet Morphology Comment NORMAL Prothrombin Time 13.0 SEC Prothromb Time International Ratio 1.2 RATIO Blood Urea Nitrogen 3 MG/DL Creatinine 0.60 MG/DL Random Glucose 81 MG/DL Total Protein 5.7 GM/DL Albumin 2.5 GM/DL Calcium Level 8.0 MG/DL Alkaline Phosphatase 178 U/L Aspartate Amino Transf (AST/SGOT) 696 U/L Alanine Aminotransferase (ALT/SGPT) 618 U/L Total Bilirubin 14.0 MG/DL Sodium Level 138 MEQ/L Potassium Level 3.2 MEQ/L Chloride Level 105 MEQ/L Carbon Dioxide Level 24.8 MEQ/L Anion Gap 8 MEQ/L Estimat Glomerular Filtration Rate 111 ML/MIN Physical Exam General General Appearance: Well Developed, Well Nourished, No Acute Distress, Comfortable Eyes Eye Exam: Pupils Equal, Pupils Reactive, Extraocular Movement Intact Eye Remarks Yellow sclera. Ears & Nose Ears & Nose Exam: Nasal Mucosa [place] Throat Throat Exam: Oral Mucosa [place] & Moist, Oral Pharynx Normal Neck Neck Exam: Neck Supple, Trachea Midline Pulmonary Resp Exam: Clear Bilaterally, Breath Sounds Equal Cardiology CV Exam: Regular, Normal Sinus Rhythm, Good Perfusion Gastrointestinal/Abdomen GI Exam: Soft, Bowel Sounds Present GI Remarks mild right upper quadrant tenderness. Musculoskeletal MS Exam: Joints Intact Integumentary Skin Exam: Warm, Dry, Jaundice Skin Remarks yellow discoloration of skin. Extremeties Extremities Exam: No Edema Neurologic Neuro Exam: Alert, Awake, Oriented, Speech Clear, Moving All Extremities, No Focal Deficits Psychiatric Psych Exam: Appropriate Responses VTE Prophylaxis VTE Prophylaxis Device: SCDs Assessment/Plan Assessment/Plan Assessment/Plan Admission Diagnosis (1) Acute LFTs abnormal secondary to acute hepatitis B Infection. (2) Asthma (3) Hypertension (4) Coronary artery disease (5) Incomplete (6) FEN/PX (7) Drug Abuse Urine tox screen positive for mirijuana. ( 8) Anemia. Plan: Mild Diffuse abdominal pain, high LFTs, and spontaneous . LFTs on admission: (11/18): 1179/961 Alk Phos: 263 Total bilirubin: 9.7 LFTs at last visit/missed ab dx (10/31): 418/711 Alk phos: 264 Total bilirubin: 1.3 As per record in 2012 LFT's were normal : Alk phos: 204 Total Bili: 0.4 LFTs Down trend PLAN - GI input noted. - f/u GI recs - UDS positive for Mirjuana - acetaminophen level noted - NO TYLENOL - motrin PRN for pain - benadryl PRN for itching (2) Asthma ICD Codes: J45.909 - Unspecified asthma, uncomplicated Status: Chronic Plan: albuterol PRN (3) Hypertension ICD Codes: I10 - Essential (primary) hypertension Status: Chronic Plan: Controlled w/ labetalol TID during per patient - pt not currently taking - f/u BPs Check CBC with diff CMP in AM. Discussed Condition with: Patient Prasanna Liriano MD Nov 23, 2016 16:15
[2016-11-23 20:00] VITALS: BP 117/78; PULSE 70; RESP 16; TEMP 98.4; O2SAT 98
[2016-11-24] VITALS: BP 121/78; PULSE 75; RESP 17; TEMP 96.2; O2SAT 99
[2016-11-24 04:00] VITALS: BP 101/67; PULSE 64; RESP 16; TEMP 96.9; O2SAT 98
[2016-11-24] MEDS: ONDANSETRON HCL 4 MG/2 ML VIAL IVP PRN ×3 (05:47→18:35)
[2016-11-24 07:50] VITALS: BP 96/55; PULSE 64; RESP 20; TEMP 98; O2SAT 96
[2016-11-24] MEDS: SODIUM CHLORIDE 0.9% FLUSH 10 ML FLUSH IV FLUSH SCH ×2 (08:35→21:00)
[2016-11-24] MEDS: DOCUSATE SODIUM 50 MG/SENNA 8.6 MG TAB PO SCH ×2 (08:38→21:00)
[2016-11-24] MEDS: SODIUM CHLOR 0.9% 1000 ML INJ 1,000 ML IV SCH ×2 (08:40→13:23)
[2016-11-24 09:57] LABS: AUTOMATED NEUTROPHIL # 2.5 TH/MM3 (1.8-7.7); BASOPHIL % 0.6 % (0.0-2.0); EOSINOPHIL # 0.3 TH/MM3 (0-0.4); EOSINOPHIL % 6.7 % (0.0-4.0); HEMATOCRIT 29.6 % (35.0-46.0); HEMO FLAGS DIFF FINAL; LYMPH % 23.5 % (9.0-44.0); LYMPHOCYTE # 1.1 TH/MM3 (1.0-4.8); MEAN CELL VOLUME 88.6 FL (80.0-100.0); MEAN CORPUSCULAR HEMOGLOBIN 30.1 PG (27.0-34.0); MONO % 17.6 % (0.0-8.0); NEUT % 51.6 % (16.0-70.0); PLATELET COUNT 202 TH/MM3 (150-450); RED BLOOD COUNT 3.34 MIL/MM3 (4.00-5.30); RED CELL DISTRIBUTION WIDTH 21.6 % (11.6-17.2); WHITE BLOOD COUNT 4.8 TH/MM3 (4.0-11.0)
[2016-11-24 10:19] LABS: ALT (GPT) 625 U/L (10-53); ANION GAP 6 MEQ/L (5-15); AST (GOT) 738 U/L (15-37); BICARBONATE 28.7 MEQ/L (21.0-32.0); BLOOD UREA NITROGEN 3 MG/DL (7-18); CHLORIDE 103 MEQ/L (98-107); GLOMERULAR FILTRATION RATE 95 ML/MIN (>89); POTASSIUM 3.3 MEQ/L (3.5-5.1); SODIUM (NA) 138 MEQ/L (136-145)
[2016-11-24 10:21] LABS: ALKALINE PHOSPHATASE 184 U/L (45-117); TOTAL BILIRUBIN ADULT 15.4 MG/DL (0.2-1.0)
[2016-11-24 11:45] VITALS: BP 117/74; PULSE 70; RESP 20; TEMP 97.2; O2SAT 100
[2016-11-24] MEDS: POTASSIUM CHLORIDE 10 MEQ CONTROLLED RELEASE TAB PO SCH (14:08)
--- NOTE | 2016-11-24 15:08 | HHI.GIFU ---
Subjective Remarks Resting in bed putting make up on. States she still is not feeling great, slightly improved. Tolerating diet. (Lilian Martin) Objective Vitals I&O Vital Signs Date Time Temp Pulse Resp B/P (MAP) Pulse Ox O2 Delivery O2 Flow Rate FiO2 11/24/16 11:45 97.2 70 20 117/74 (88) 100 11/24/16 07:50 98.0 64 20 96/55 (69) 96 11/24/16 04:00 96.9 64 16 101/67 (78) 98 11/24/16 00:00 96.2 75 17 121/78 (92) 99 11/23/16 20:00 98.4 70 16 117/78 (91) 98 11/23/16 16:09 98.3 80 19 135/75 (95) 99 I/O 11/23/16 11/23/16 11/23/16 11/24/16 11/24/16 11/24/16 07:00 15:00 23:00 07:00 15:00 23:00 Intake Total 480 ml 2622 ml 480 ml Balance 480 ml 2622 ml 480 ml Intake Oral 480 ml 2622 ml 480 ml # Voids 5 15 6 # Bowel Movements 1 Laboratory Laboratory Tests Test 11/24/16 08:17 White Blood Count 4.8 Red Blood Count 3.34 Hemoglobin 10.1 Hematocrit 29.6 Mean Corpuscular Volume 88.6 Mean Corpuscular Hemoglobin 30.1 Mean Corpuscular Hemoglobin Concent 34.0 Red Cell Distribution Width 21.6 Platelet Count 202 Mean Platelet Volume 10.0 Neutrophils (%) (Auto) 51.6 Lymphocytes (%) (Auto) 23.5 Monocytes (%) (Auto) 17.6 Eosinophils (%) (Auto) 6.7 Basophils (%) (Auto) 0.6 Neutrophils # (Auto) 2.5 Lymphocytes # (Auto) 1.1 Monocytes # (Auto) 0.8 Eosinophils # (Auto) 0.3 Basophils # (Auto) 0.0 CBC Comment DIFF FINAL Differential Comment Blood Urea Nitrogen 3 Creatinine 0.69 Random Glucose 105 Total Protein 6.2 Albumin 2.7 Calcium Level 8.3 Alkaline Phosphatase 184 Aspartate Amino Transf (AST/SGOT) 738 Alanine Aminotransferase (ALT/SGPT) 625 Total Bilirubin 15.4 Sodium Level 138 Potassium Level 3.3 Chloride Level 103 Carbon Dioxide Level 28.7 Anion Gap 6 Estimat Glomerular Filtration Rate 95 Imaging Last Impressions Pelvis Ultrasound 11/18/16 1300 Signed Impressions: Service Date/Time: Friday, November 18, 2016 13:34 - CONCLUSION: 1. Findings most characteristic of in progress Frankie Casanova MD Gall Bladder Ultrasound 11/18/16 1300 Signed Impressions: Service Date/Time: Friday, November 18, 2016 13:21 - CONCLUSION: 1. Enlarged echogenic liver consistent with the hepatic steatosis versus medical liver disease. 2. Gallbladder is contracted which accentuates the gallbladder wall. However, there is diffuse gallbladder wall thickening with no pericholecystic fluid, stones or sonographic Villegas sign. Gallbladder wall thickening is commonly seen in patient's with underlying liver disease. If there is significant continued clinical concern, a HIDA scan may be performed to evaluate for cystic duct patency. Jose Yanes MD Physical Exam HEENT: Normocephalic; atraumatic; + scleral icterus CHEST: CTA CARDIAC: RRR ABDOMEN: Soft, nondistended, mild abdominal tenderness; bowel sounds are present EXTREMITIES: No clubbing, cyanosis, or edema. SKIN: + jaundice. CASE FILLER: No focal deficits; alert and oriented x 3. (Lilian Martin [facility]) Assessment and Plan Plan ASSESSMENT: - Acute hepatitis B. Hepatitis B surface antigen (+), Hepatitis B Core IgM ab. GB US (11/18/16)----> Enlarged echogenic liver consistent with hepatic steatosis vs. medical liver disease. GB is contracted which accentuates the gallbladder wall. However, there is diffuse gallbladder wall thickening. However, there is diffuse gallbladder wall thickening with no pericholecystic fluid, stones, or sonographic Villegas sign. GB wall thickening is commonly seen in patient's with underlying liver disease. If there is continued clinical concern,a HIDA scan could be performed to evaluate patency of cystic duct. Denies ETOH use, illicit drug use, new medications other than labetolol (which she stopped 3 weeks ago). No herbal supplements. No new tattoo's, although her last tattoo was done during a tattoo libertarian at a [employer] house 10 years ago. (+) New sexual partner about 6 weeks ago. ? GB wall thickening related to acute hepatitis. Hepatitis panel (+) Acute hep b, Monoscreen negative, ABBY neg, AMA <20.0, ASMA neg, Acetaminophen < 2.0, Ethyl alcohol < 3, Cannabinoids (+), Iron saturation 7.8%, Ferritin 32. Alpha 1 antitrypsin 183, Ceruloplasmin 40, AFP 4.6. Hep B DNA 8,440,000. Hep Be Ag positive. T. Bilirubin slowly trending up, although transaminases have improved. Supportive care. - Abdominal pain. Chronic intermittent RUQ pain. Now with mid abdominal/RUQ dull ache, radiating to back. Likely multifactorial secondary to acute hepatitis and possible ectopic . - Anemia. 10.03/24.6. No active gi bleeding. - Hypokalemia. Improved - Suspected Ectopic in cervix. S/P Cytotec. S/P Methotrexate, levels are trending down. PLAN: - SHAYLA, low fat - Monitor LFTs - Avoid hepatotoxic meds - LFT in am - Will need outpatient followup/lfts at discharge - Supportive care - Further recommendations to follow after results of above - Pt seen and examined by Dr. Mckeon and myself and this note is written on his behalf (Lilian Martin) Plan Patient was seen and examined, agree with above note, we'll follow up as an outpatient (Ifeanyi Mckeon MD) Lilian Martin Nov 24, 2016 15:08 Ifeanyi Mckeon MD Nov 24, 2016 18:08
[2016-11-24 15:50] VITALS: BP 124/70; PULSE 71; RESP 20; TEMP 97.2; O2SAT 100
[2016-11-24] MEDS ORDERED: MORPHINE SULFATE 4 MG/ML INJ IV PUSH ONE (16:45)
[2016-11-24 20:00] VITALS: BP 130/80; PULSE 75; RESP 17; TEMP 97.3; O2SAT 100
[2016-11-25] VITALS: BP 108/60; PULSE 66; RESP 16; TEMP 96.8; O2SAT 100
[2016-11-25] MEDS: ONDANSETRON HCL 4 MG/2 ML VIAL IVP PRN ×4 (01:16→23:35)
[2016-11-25] MEDS: SODIUM CHLOR 0.9% 1000 ML INJ 1,000 ML IV SCH ×3 (01:17→21:30)
[2016-11-25 04:00] VITALS: BP 98/56; PULSE 68; RESP 16; TEMP 97.2; O2SAT 97
[2016-11-25 08:00] VITALS: BP 108/57; PULSE 68; RESP 20; TEMP 98.2; O2SAT 100
[2016-11-25] MEDS: DOCUSATE SODIUM 50 MG/SENNA 8.6 MG TAB PO SCH ×2 (09:08→20:55)
[2016-11-25] MEDS: POTASSIUM CHLORIDE 10 MEQ CONTROLLED RELEASE TAB PO SCH (09:08)
[2016-11-25] MEDS: SODIUM CHLORIDE 0.9% FLUSH 10 ML FLUSH IV FLUSH SCH ×2 (09:09→20:55)
--- NOTE | 2016-11-25 09:57 | HHI.PR ---
Subjective History of Present Illness Patient feel weak and tired have jaundice GI input noted d/w RN urine tox screen positive for mirjuana Patient seen on 11/24/16 low potassium will replace and monitor. Review of Systems Constitutional Constitutional: Fatigue, Weakness Eyes Eyes Remarks yellow sclera. GI/Abdomen GI/Abdominal Exam: Abdominal Pain Integumentary Skin Remarks yellow discoloration of skin Vitals/Results Intake & Output 11/25/16 11/25/16 11/26/16 15:00 23:00 07:00 Intake Total 500 ml Balance 500 ml IV Total 500 ml Vital Signs Vital Signs Date Time Temp Pulse Resp B/P (MAP) Pulse Ox O2 Delivery O2 Flow Rate FiO2 11/25/16 08:00 98.2 68 20 108/57 (74) 100 11/25/16 04:00 97.2 68 16 98/56 (70) 97 11/25/16 00:00 96.8 66 16 108/60 (76) 100 11/24/16 20:00 97.3 75 17 130/80 (97) 100 11/24/16 15:50 97.2 71 20 124/70 (88) 100 11/24/16 11:45 97.2 70 20 117/74 (88) 100 CBC/BMP: 11/24/16 0817 11/24/16 0817 Physical Exam General General Appearance: Well Developed, Well Nourished, No Acute Distress, Comfortable Eyes Eye Exam: Pupils Equal, Pupils Reactive, Extraocular Movement Intact Eye Remarks yellow sclera. Throat Throat Exam: Oral Mucosa [place] & Moist, Oral Pharynx Normal Neck Neck Exam: Neck Supple, Trachea Midline Pulmonary Resp Exam: Clear Bilaterally, Breath Sounds Equal, No Distress Cardiology CV Exam: Normal Sinus Rhythm Gastrointestinal/Abdomen GI Exam: Soft, Non-Tender, Bowel Sounds Present Musculoskeletal MS Exam: Joints Intact, Normal Tone Integumentary Skin Exam: Warm, Dry, Jaundice Neurologic Neuro Exam: Alert, Awake, Oriented, Speech Clear, Moving All Extremities, No Focal Deficits Psychiatric Psych Exam: Appropriate Responses VTE Prophylaxis VTE Prophylaxis Device: SCDs Assessment/Plan Assessment/Plan Assessment/Plan Admission Diagnosis (1) Acute LFTs abnormal secondary to acute hepatitis B Infection. (2) Asthma (3) Hypertension (4) Coronary artery disease (5) Incomplete (6) FEN/PX (7) Drug Abuse Urine tox screen positive for mirijuana. ( 8) Anemia. Plan: Mild Diffuse abdominal pain, high LFTs, and spontaneous . LFTs on admission: (11/18): 1179/961 Alk Phos: 263 Total bilirubin: 9.7 LFTs at last visit/missed ab dx (10/31): 418/711 Alk phos: 264 Total bilirubin: 1.3 As per record in 2012 LFT's were normal : Alk phos: 204 Total Bili: 0.4 LFTs down trend PLAN - GI input noted. - f/u GI recs for imaging - UDS positive for Mirjuana - acetaminophen level noted - NO TYLENOL - motrin PRN for pain - benadryl PRN for itching (2) Asthma ICD Codes: J45.909 - Unspecified asthma, uncomplicated Status: Chronic Plan: albuterol PRN (3) Hypertension ICD Codes: I10 - Essential (primary) hypertension Status: Chronic Plan: Controlled w/ labetalol TID during per patient - pt not currently taking - f/u BPs Check CBC with diff CMP in AM Hypokalemia will replace and monitor. Discussed Condition with: Patient Prasanna Liriano MD Nov 25, 2016 09:57
--- NOTE | 2016-11-25 09:57 | HHI.PR ---
Subjective History of Present Illness Patient feel weak and tired have jaundice GI input noted low potassium resolved. Review of Systems Constitutional Constitutional: Fatigue, Weakness Eyes Eyes Remarks yellow sclera. Integumentary Skin Remarks yellow discoloration of skin Vitals/Results Intake & Output 11/25/16 11/25/16 11/26/16 15:00 23:00 07:00 Intake Total 500 ml Balance 500 ml IV Total 500 ml Vital Signs Vital Signs Date Time Temp Pulse Resp B/P (MAP) Pulse Ox O2 Delivery O2 Flow Rate FiO2 11/25/16 08:00 98.2 68 20 108/57 (74) 100 11/25/16 04:00 97.2 68 16 98/56 (70) 97 11/25/16 00:00 96.8 66 16 108/60 (76) 100 11/24/16 20:00 97.3 75 17 130/80 (97) 100 11/24/16 15:50 97.2 71 20 124/70 (88) 100 11/24/16 11:45 97.2 70 20 117/74 (88) 100 CBC/BMP: 11/24/16 0817 11/24/16 0817 Physical Exam General General Appearance: Well Developed, Well Nourished, No Acute Distress, Comfortable Eyes Eye Exam: Pupils Equal, Pupils Reactive, Extraocular Movement Intact Eye Remarks yellow sclera. Throat Throat Exam: Oral Mucosa [place] & Moist, Oral Pharynx Normal Neck Neck Exam: Neck Supple, Trachea Midline Pulmonary Resp Exam: Clear Bilaterally, Breath Sounds Equal, No Distress Cardiology CV Exam: Normal Sinus Rhythm Gastrointestinal/Abdomen GI Exam: Soft, Non-Tender, Bowel Sounds Present Musculoskeletal MS Exam: Joints Intact, Normal Tone Integumentary Skin Exam: Warm, Dry, Jaundice Neurologic Neuro Exam: Alert, Awake, Oriented, Speech Clear, Moving All Extremities, No Focal Deficits Psychiatric Psych Exam: Appropriate Responses PUD Prophylasis PUD Prophylaxis: Protonix Assessment/Plan Assessment/Plan Assessment/Plan Admission Diagnosis (1) Acute LFTs abnormal secondary to acute hepatitis B Infection. (2) Asthma (3) Hypertension (4) Coronary artery disease (5) Incomplete (6) FEN/PX (7) Drug Abuse Urine tox screen positive for mirijuana. ( 8) Anemia. Plan: Mild Diffuse abdominal pain, high LFTs, and spontaneous . LFTs on admission: (11/18): 1179/961 Alk Phos: 263 Total bilirubin: 9.7 LFTs at last visit/missed ab dx (10/31): 418/711 Alk phos: 264 Total bilirubin: 1.3 As per record in 2012 LFT's were normal : Alk phos: 204 Total Bili: 0.4 LFTs trend down. PLAN - GI input noted. - f/u GI recs for imaging - UDS positive for Mirjuana - acetaminophen level noted - f/u hepatitis panel - NO TYLENOL - motrin PRN for pain - benadryl PRN for itching (2) Asthma ICD Codes: J45.909 - Unspecified asthma, uncomplicated Status: Chronic Plan: albuterol PRN (3) Hypertension ICD Codes: I10 - Essential (primary) hypertension Status: Chronic Plan: Controlled w/ labetalol TID during per patient - pt not currently taking - f/u BPs Hypokalemia resolved. Check CBC with diff CMP in AM. Discussed Condition with: Patient Prasanna Liriano MD Nov 25, 2016 09:57
[2016-11-25 10:09] LABS: MEAN CELL VOLUME 89.2 FL (80.0-100.0); MEAN CORPUSCULAR HEMOGLOBIN 29.9 PG (27.0-34.0); MEAN CORPUSCULAR HGB CONC 33.5 % (32.0-36.0); PLATELET COUNT 227 TH/MM3 (150-450); RED BLOOD COUNT 3.36 MIL/MM3 (4.00-5.30); RED CELL DISTRIBUTION WIDTH 21.8 % (11.6-17.2); WHITE BLOOD COUNT 5.4 TH/MM3 (4.0-11.0)
[2016-11-25 10:11] LABS: HEMO FLAGS AUTO DIFF
[2016-11-25 10:25] LABS: ANION GAP 5 MEQ/L (5-15); AST (GOT) 776 U/L (15-37); BICARBONATE 27.8 MEQ/L (21.0-32.0); BLOOD UREA NITROGEN 4 MG/DL (7-18); CHLORIDE 104 MEQ/L (98-107); GLOMERULAR FILTRATION RATE 96 ML/MIN (>89); POTASSIUM 3.8 MEQ/L (3.5-5.1); SODIUM (NA) 137 MEQ/L (136-145)
[2016-11-25 10:34] LABS: ALKALINE PHOSPHATASE 173 U/L (45-117); ALT (GPT) 584 U/L (10-53); TOTAL BILIRUBIN ADULT 14.8 MG/DL (0.2-1.0)
[2016-11-25 10:55] LABS: BANDS 4 % (0-6); BASOPHILS 2 % (0-2); EOSINOPHILS 2 % (0-4); NEUTROPHIL # MANUAL DIFF 3.5 TH/MM3 (1.8-7.7); PLATELET ESTIMATE SMEAR NORMAL (NORMAL); PLATELET MORPHOLOGY ENLARGED (NORMAL); POLYS (SEG NEUTROPHILS) 60 % (16-70); TARGET CELLS 1+ (NORMAL); WBC DIFF SAMPLE 100
[2016-11-25 10:56] LABS: SCAN/DIFF FINAL DIFF MANUAL
[2016-11-25 12:09] LABS: BETA HCG QUANT 937 MIU/ML (0-5)
--- NOTE | 2016-11-25 12:47 | RADRPT ---
EXAM DATE/TIME: 11/25/2016 10:58 [place] COMPARISON: US PELVIS (QUEST PREG/ECTOPIC) W/TRANSVAG, October 31, 2016, 13:46. INDICATIONS : Pelvic pain, abnormal prior exams. LAB(S): Beta-hC MEDICAL HISTORY : Hypercholesterolemia. Chronic obstructive pulmonary disease. Hypertension. Hyperthyroidism. Ulcer. As thma. Cervical dysplasia. SURGICAL HISTORY : section. Tonsillectomy. Tympanostomy tube. ENCOUNTER: Subsequent ACUITY: 1 week PAIN SCORE: 3/10 LOCATION: Bilateral pelvis MEASUREMENTS: UTERUS: 9.2 x 5.4 x 4.8 cm ENDOMETRIAL STRIPE: 10 mm RIGHT OVARY: 2.8 x 1.5 x 2.0 cm LEFT OVARY: 2.7 x 1.7 x 2.1 cm FREE FLUID: Yes Posterior cul-de-sac and rightt adnexa CROWN RUMP LENGTH: None = WKS DAYS FHR: None BPM FINDINGS: UTERUS: Cystic area in the lower uterine segment is irregular measuring 1.4 x 0.9 x 1.3 cm and likely represe nts the abnormal gestational sac. Adjacent to this sac myometrium is a hypervascular area which proba jamir represents the associated products of conception. No pole or yolk sac is identified. Findin gs are characteristic of an in progress. In addition, beta-hCG is markedly reduced when comp ared to the prior exam previously measuring 12,837 and now measuring 937. RIGHT OVARY: Ovary contains no mass or significant cystic lesion. LEFT OVARY: Ovary contains no mass or significant cystic lesion. MISCELLANEOUS: Small amount of free fluid. CONCLUSION: Findings characteristic of an in progress with the irregular gestational sac and produc ts of conception in the lower uterine segment. Otoniel Fox MD on November 25, 2016 at 12:40 Board Certified Radiologist. This report was verified electronically.
[2016-11-25 12:59] VITALS: BP 99/58; PULSE 62; RESP 20; TEMP 99.2; O2SAT 99
[2016-11-25] MEDS: MORPHINE SULFATE 4 MG/ML INJ IV PRN ×2 (14:02→20:54)
[2016-11-25 16:59] VITALS: BP 105/62; PULSE 76; RESP 20; TEMP 97.8; O2SAT 99
[2016-11-25 20:00] VITALS: BP 120/61; PULSE 69; RESP 17; TEMP 96.6; O2SAT 100
[2016-11-26] VITALS: BP_SYST 110; BP_SYST 112; BP_DIAS 66; BP_DIAS 67; PULSE 62; PULSE 66; RESP 17; TEMP 96.2; TEMP 96.6; O2SAT 98
[2016-11-26] MEDS: SODIUM CHLOR 0.9% 1000 ML INJ 1,000 ML IV SCH ×2 (05:00→08:38)
[2016-11-26] MEDS: ONDANSETRON HCL 4 MG/2 ML VIAL IVP PRN ×2 (05:25→12:34)
[2016-11-26] MEDS: MORPHINE SULFATE 4 MG/ML INJ IV PRN ×3 (05:25→19:41)
[2016-11-26 08:35] VITALS: BP 102/73
[2016-11-26] MEDS: POTASSIUM CHLORIDE 10 MEQ CONTROLLED RELEASE TAB PO SCH (08:39)
[2016-11-26] MEDS: SODIUM CHLORIDE 0.9% FLUSH 10 ML FLUSH IV FLUSH SCH ×2 (08:39→21:00)
[2016-11-26] MEDS: DOCUSATE SODIUM 50 MG/SENNA 8.6 MG TAB PO SCH ×2 (08:40→21:00)
[2016-11-26 08:56] VITALS: BP_SYST 94; BP_SYST 97; BP_DIAS 53; BP_DIAS 54; PULSE 66; RESP 16; TEMP 96.7; O2SAT 99
[2016-11-26 12:00] VITALS: BP 112/78; PULSE 67; RESP 16; TEMP 96.1; O2SAT 94
--- NOTE | 2016-11-26 12:04 | HHI.PR ---
Subjective History of Present Illness Patient feel weak and tired have jaundice GI input noted LFTs down trend. Review of Systems Constitutional Constitutional: Fatigue, Weakness Eyes Eyes Remarks yellow sclera. GI/Abdomen GI/Abdominal Exam: Abdominal Pain Integumentary Skin Remarks Yellow discoloration of skin. Vitals/Results Intake & Output 11/26/16 11/26/16 11/27/16 15:00 23:00 07:00 # Sanitary Pads 1 Pads Vital Signs Vital Signs Date Time Temp Pulse Resp B/P (MAP) Pulse Ox O2 Delivery O2 Flow Rate FiO2 11/26/16 08:56 96.7 66 16 94/53 (67) 99 97/54 (68) 11/26/16 08:35 102/73 (83) 11/26/16 05:36 16 11/26/16 00:42 16 11/26/16 00:00 96.6 66 17 110/67 (81) 98 11/26/16 00:00 96.2 62 17 112/66 (81) 98 11/25/16 20:00 96.6 69 17 120/61 (80) 100 11/25/16 16:59 97.8 76 20 105/62 (76) 99 11/25/16 12:59 99.2 62 20 99/58 (72) 99 CBC/BMP: 11/25/16 0900 11/25/16 0900 Physical Exam General General Appearance: Well Developed, Well Nourished, No Acute Distress, Comfortable Eyes Eye Exam: Pupils Equal, Pupils Reactive, Extraocular Movement Intact Eye Remarks Yellow sclera. Ears & Nose Ears & Nose Exam: Nasal Mucosa [place] Throat Throat Exam: Oral Mucosa [place] & Moist, Oral Pharynx Normal Neck Neck Exam: Neck Supple, Trachea Midline Pulmonary Resp Exam: Clear Bilaterally, Breath Sounds Equal Cardiology CV Exam: Regular, Normal Sinus Rhythm, Good Perfusion Gastrointestinal/Abdomen GI Exam: Soft, Bowel Sounds Present GI Remarks mild right upper quadrant tenderness. Musculoskeletal MS Exam: Joints Intact Integumentary Skin Exam: Warm, Dry, Jaundice Skin Remarks yellow discoloration of skin. Extremeties Extremities Exam: No Edema Neurologic Neuro Exam: Alert, Awake, Oriented, Speech Clear, Moving All Extremities, No Focal Deficits Psychiatric Psych Exam: Appropriate Responses VTE Prophylaxis VTE Prophylaxis Device: SCDs Assessment/Plan Assessment/Plan Assessment/Plan Admission Diagnosis (1) Acute LFTs abnormal secondary to acute hepatitis B Infection. (2) Asthma (3) Hypertension (4) Coronary artery disease (5) Incomplete (6) FEN/PX (7) Drug Abuse Urine tox screen positive for mirijuana. ( 8) Anemia. Plan: Mild Diffuse abdominal pain, high LFTs, and spontaneous . LFTs on admission: (11/18): 1179/961 Alk Phos: 263 Total bilirubin: 9.7 LFTs at last visit/missed ab dx (10/31): 418/711 Alk phos: 264 Total bilirubin: 1.3 As per record in 2012 LFT's were normal : Alk phos: 204 Total Bili: 0.4 LFTs trend down. PLAN - GI input noted. - f/u GI recs for imaging - UDS positive for Mirjuana - acetaminophen level noted - f/u hepatitis panel - NO TYLENOL - motrin PRN for pain - benadryl PRN for itching (2) Asthma ICD Codes: J45.909 - Unspecified asthma, uncomplicated Status: Chronic Plan: albuterol PRN (3) Hypertension ICD Codes: I10 - Essential (primary) hypertension Status: Chronic Plan: Controlled w/ labetalol TID during per patient - pt not currently taking - f/u BPs Hypokalemia resolved. Started on morphine for abdominal pain. Check CBC with diff CMP in AM. Discussed Condition with: Patient Prasanna Liriano MD Nov 26, 2016 12:04
[2016-11-26 16:00] VITALS: BP_SYST 111; BP_SYST 126; BP_DIAS 69; BP_DIAS 77; PULSE 68; PULSE 82; RESP 16; TEMP 98.4; TEMP 98.5; O2SAT 100; O2SAT 99
--- NOTE | 2016-11-26 16:59 | HHI.GIFU ---
Subjective Remarks Resting in bed. States she is having more lower abdominal cramping today- states from the cytotec and methotrexate. She still has RUQ tenderness, but no n/v and is tolerating diet. (Lilian Martin) Objective Vitals I&O Vital Signs Date Time Temp Pulse Resp B/P (MAP) Pulse Ox O2 Delivery O2 Flow Rate FiO2 11/26/16 12:00 96.1 67 16 112/78 (89) 94 11/26/16 08:56 96.7 66 16 94/53 (67) 99 97/54 (68) 11/26/16 08:35 102/73 (83) 11/26/16 05:36 16 11/26/16 00:42 16 11/26/16 00:00 96.6 66 17 110/67 (81) 98 11/26/16 00:00 96.2 62 17 112/66 (81) 98 11/25/16 20:00 96.6 69 17 120/61 (80) 100 11/25/16 16:59 97.8 76 20 105/62 (76) 99 I/O 11/25/16 11/25/16 11/25/16 11/26/16 11/26/16 11/26/16 07:00 15:00 23:00 07:00 15:00 23:00 Intake Total 480 ml 500 ml 960 ml 732 ml Balance 480 ml 500 ml 960 ml 732 ml Intake Oral 480 ml 960 ml IV Total 500 ml 732 ml # Voids 6 10 # Sanitary Pads 1 Pads Imaging Last Impressions Pelvis Ultrasound 11/25/16 0000 Signed Impressions: Service Date/Time: Friday, November 25, 2016 10:58 - CONCLUSION: Findings characteristic of an in progress with the irregular gestational sac and products of conception in the lower uterine segment. Otoniel Fox MD Gall Bladder Ultrasound 11/18/16 1300 Signed Impressions: Service Date/Time: Friday, November 18, 2016 13:21 - CONCLUSION: 1. Enlarged echogenic liver consistent with the hepatic steatosis versus medical liver disease. 2. Gallbladder is contracted which accentuates the gallbladder wall. However, there is diffuse gallbladder wall thickening with no pericholecystic fluid, stones or sonographic Villegas sign. Gallbladder wall thickening is commonly seen in patient's with underlying liver disease. If there is significant continued clinical concern, a HIDA scan may be performed to evaluate for cystic duct patency. Jose Yanes MD Physical Exam HEENT: Normocephalic; atraumatic; + scleral icterus CHEST: CTA CARDIAC: RRR ABDOMEN: Soft, nondistended, mild abdominal tenderness; bowel sounds are present EXTREMITIES: No clubbing, cyanosis, or edema. SKIN: + jaundice. [employer]: No focal deficits; alert and oriented x 3. (Lilian Martin) Assessment and Plan Plan ASSESSMENT: - Acute hepatitis B. Hepatitis B surface antigen (+), Hepatitis B Core IgM ab. GB US (11/18/16)----> Enlarged echogenic liver consistent with hepatic steatosis vs. medical liver disease. GB is contracted which accentuates the gallbladder wall. However, there is diffuse gallbladder wall thickening. However, there is diffuse gallbladder wall thickening with no pericholecystic fluid, stones, or sonographic Villegas sign. GB wall thickening is commonly seen in patient's with underlying liver disease. If there is continued clinical concern,a HIDA scan could be performed to evaluate patency of cystic duct. Denies ETOH use, illicit drug use, new medications other than labetolol (which she stopped 3 weeks ago). No herbal supplements. No new tattoo's, although her last tattoo was done during a tattoo green party at a [employer] house 10 years ago. (+) New sexual partner about 6 weeks ago. ? GB wall thickening related to acute hepatitis. Hepatitis panel (+) Acute hep b, Monoscreen negative, ABBY neg, AMA <20.0, ASMA neg, Acetaminophen < 2.0, Ethyl alcohol < 3, Cannabinoids (+), Iron saturation 7.8%, Ferritin 32. Alpha 1 antitrypsin 183, Ceruloplasmin 40, AFP 4.6. Hep B DNA 8,440,000. Hep Be Ag positive. LFts are improving. Supportive care. - Abdominal pain. Seems to be more cramping since she received cytotec/ methotrexate. - Anemia. 10.0/30.0. No active gi bleeding. - Hypokalemia. Improved - Suspected Ectopic in cervix. S/P Cytotec. S/P Methotrexate, levels are trending down. PLAN: - SHAYLA, low fat - Avoid hepatotoxic meds - FU BETH 2 weeks - LFT in one week at discharge - Hepatitis B precautions - Will need follow up labs as outpatient - Further recommendations to follow after results of above - Pt seen and examined by Dr. Howell and myself and this note is written on her behalf (Lilian Martin) Physician Comments seen, examined agree with above (Debbie Howell MD) Lilian Martin Nov 26, 2016 16:59 Debbie Howell MD Nov 26, 2016 19:22
--- NOTE | 2016-11-26 18:08 | PD.CONS ---
History & Physical H&P Hospital day 9 AFVSS S-- c/o some lower abd cramping and spotting O- abd / pelvic 1-2 + tender no rebound no mass A- cervical isthmus / ALLAN --treated with MTX 11/21 QHCG -1200 down to 900 , ultrasound done yesterday shows an improvement in lower uterine segment less enlargement no more barrel-shaped lower uterine segment and cervix there does appear to have a lot of vascular area still around the cervix and lower uterine segment P- with MTX given improvement seen in QHCG and US , would cont to follow US and lab while here and as an OP Bowen Correa II, MD Nov 26, 2016 18:07
[2016-11-26 20:00] VITALS: BP 115/71; PULSE 66; RESP 18; TEMP 97.9; O2SAT 98
[2016-11-27] VITALS: BP 107/59; PULSE 56; RESP 16; TEMP 97.7; O2SAT 98
[2016-11-27] MEDS: ONDANSETRON HCL 4 MG/2 ML VIAL IVP PRN ×4 (00:20→22:05)
[2016-11-27] MEDS: SODIUM CHLOR 0.9% 1000 ML INJ 1,000 ML IV SCH ×3 (01:00→18:53)
[2016-11-27 04:00] VITALS: BP 108/58; PULSE 61; RESP 17; TEMP 97; O2SAT 98
[2016-11-27] MEDS: MORPHINE SULFATE 4 MG/ML INJ IV PRN ×3 (04:55→18:54)
[2016-11-27 07:50] VITALS: BP 107/61; PULSE 63; RESP 20; TEMP 98.1; O2SAT 98
[2016-11-27] MEDS: POTASSIUM CHLORIDE 10 MEQ CONTROLLED RELEASE TAB PO SCH (08:04)
[2016-11-27] MEDS: SODIUM CHLORIDE 0.9% FLUSH 10 ML FLUSH IV FLUSH SCH ×2 (08:04→21:00)
[2016-11-27] MEDS: DOCUSATE SODIUM 50 MG/SENNA 8.6 MG TAB PO SCH ×2 (08:04→21:00)
--- NOTE | 2016-11-27 09:08 | HHI.PR ---
Subjective History of Present Illness Patient feel weak and tired have jaundice GI input noted LFTs down trend. no Acute issue D/W DAVID Estes. Review of Systems Constitutional Constitutional: Fatigue, Weakness Eyes Eyes Remarks yellow sclera. GI/Abdomen GI/Abdominal Exam: Abdominal Pain Integumentary Skin Remarks Yellow discoloration of skin. Vitals/Results Vital Signs Vital Signs Date Time Temp Pulse Resp B/P (MAP) Pulse Ox O2 Delivery O2 Flow Rate FiO2 11/27/16 05:38 16 11/27/16 04:00 97.0 61 17 108/58 (75) 98 11/27/16 01:33 16 11/27/16 00:00 97.7 56 16 107/59 (75) 98 11/26/16 20:00 97.9 66 18 115/71 (86) 98 11/26/16 16:00 98.5 68 16 111/69 (83) 100 11/26/16 12:00 96.1 67 16 112/78 (89) 94 CBC/BMP: 11/25/16 0900 11/25/16 0900 Physical Exam General General Appearance: Well Developed, Well Nourished, No Acute Distress, Comfortable Eyes Eye Exam: Pupils Equal, Pupils Reactive, Extraocular Movement Intact Eye Remarks Yellow sclera. Ears & Nose Ears & Nose Exam: Nasal Mucosa [place] Throat Throat Exam: Oral Mucosa [place] & Moist, Oral Pharynx Normal Neck Neck Exam: Neck Supple, Trachea Midline Pulmonary Resp Exam: Clear Bilaterally, Breath Sounds Equal Cardiology CV Exam: Regular, Normal Sinus Rhythm, Good Perfusion Gastrointestinal/Abdomen GI Exam: Soft, Bowel Sounds Present GI Remarks mild right upper quadrant tenderness. Musculoskeletal MS Exam: Joints Intact Integumentary Skin Exam: Warm, Dry, Jaundice Skin Remarks yellow discoloration of skin. Extremeties Extremities Exam: No Edema Neurologic Neuro Exam: Alert, Awake, Oriented, Speech Clear, Moving All Extremities, No Focal Deficits Psychiatric Psych Exam: Appropriate Responses VTE Prophylaxis VTE Prophylaxis Device: SCDs Assessment/Plan Assessment/Plan Assessment/Plan Admission Diagnosis (1) Acute LFTs abnormal secondary to acute hepatitis B Infection. (2) Asthma (3) Hypertension (4) Coronary artery disease (5) Incomplete (6) FEN/PX (7) Drug Abuse Urine tox screen positive for mirijuana. ( 8) Anemia. Plan: Mild Diffuse abdominal pain, high LFTs, and spontaneous . LFTs on admission: (11/18): 1179/961 Alk Phos: 263 Total bilirubin: 9.7 LFTs at last visit/missed ab dx (10/31): 418/711 Alk phos: 264 Total bilirubin: 1.3 As per record in 2012 LFT's were normal : Alk phos: 204 Total Bili: 0.4 LFTs trend down. PLAN - GI input noted. - f/u GI recs for imaging - UDS positive for Mirjuana - acetaminophen level noted - f/u hepatitis panel - NO TYLENOL - motrin PRN for pain - benadryl PRN for itching (2) Asthma ICD Codes: J45.909 - Unspecified asthma, uncomplicated Status: Chronic Plan: albuterol PRN (3) Hypertension ICD Codes: I10 - Essential (primary) hypertension Status: Chronic Plan: Controlled w/ labetalol TID during per patient - pt not currently taking - f/u BPs Hypokalemia resolved. on morphine for abdominal pain / Cramp. Check CBC with diff CMP in AM. Discussed Condition with: Patient Prasanna Liriano MD Nov 27, 2016 09:08
--- NOTE | 2016-11-27 09:50 | PD.CONS ---
History & Physical [facility] day [facility] afebrile vital signs stable Patient still having some crampy pain more right than left and spotting Exam is unchanged Plan at this point to draw quantitative hCG tomorrow and on which would be day 7 basically for therapy for methotrexate and if decreased appropriately and would do nothing other than follow weekly clots and ultrasounds if the quantitative hCG is not dropped Significantly and potentially a second dose methotrexate Bowen Correa II, MD Nov 27, 2016 09:50
[2016-11-27 11:50] VITALS: BP 122/68; PULSE 72; RESP 20; TEMP 97.5; O2SAT 100
[2016-11-27 14:25] LABS: ALT (GPT) 649 U/L (10-53); ANION GAP 4 MEQ/L (5-15); AST (GOT) 987 U/L (15-37); BICARBONATE 29.9 MEQ/L (21.0-32.0); BLOOD UREA NITROGEN 4 MG/DL (7-18); CHLORIDE 100 MEQ/L (98-107); GLOMERULAR FILTRATION RATE 94 ML/MIN (>89); POTASSIUM 3.5 MEQ/L (3.5-5.1); SODIUM (NA) 134 MEQ/L (136-145)
[2016-11-27 14:27] LABS: ALKALINE PHOSPHATASE 173 U/L (45-117)
[2016-11-27 15:40] VITALS: BP 108/63; PULSE 76; RESP 20; TEMP 98.1; O2SAT 99
[2016-11-27 20:00] VITALS: BP 115/69; PULSE 75; RESP 18; TEMP 97.4; O2SAT 98
[2016-11-28] VITALS: BP 107/58; PULSE 64; RESP 17; TEMP 98.1; O2SAT 99
[2016-11-28] MEDS: MORPHINE SULFATE 4 MG/ML INJ IV PRN ×3 (02:37→20:35)
[2016-11-28 04:00] VITALS: BP 106/60; PULSE 76; RESP 18; TEMP 97.8; O2SAT 100
[2016-11-28] MEDS: ONDANSETRON HCL 4 MG/2 ML VIAL IVP PRN ×3 (04:17→17:17)
[2016-11-28] MEDS: SODIUM CHLOR 0.9% 1000 ML INJ 1,000 ML IV SCH ×2 (04:17→17:00)
[2016-11-28 07:50] VITALS: BP 103/59; PULSE 70; RESP 20; TEMP 97.9; O2SAT 99
[2016-11-28] MEDS: POTASSIUM CHLORIDE 10 MEQ CONTROLLED RELEASE TAB PO SCH (09:39)
[2016-11-28] MEDS: SODIUM CHLORIDE 0.9% FLUSH 10 ML FLUSH IV FLUSH SCH ×2 (09:40→20:37)
[2016-11-28] MEDS: DOCUSATE SODIUM 50 MG/SENNA 8.6 MG TAB PO SCH ×2 (09:40→20:37)
--- NOTE | 2016-11-28 10:13 | HHI.PR ---
Subjective History of Present Illness Patient feel weak and tired have jaundice GI input noted LFTs noted.. no Acute issue Review of Systems Constitutional Constitutional: Fatigue, Weakness Eyes Eyes Remarks yellow sclera. GI/Abdomen GI/Abdominal Exam: Abdominal Pain Integumentary Skin Remarks Yellow discoloration of skin. Vitals/Results Vital Signs Vital Signs Date Time Temp Pulse Resp B/P (MAP) Pulse Ox O2 Delivery O2 Flow Rate FiO2 11/28/16 07:50 97.9 70 20 103/59 (74) 99 11/28/16 04:00 97.8 76 18 106/60 (75) 100 11/28/16 00:00 98.1 64 17 107/58 (74) 99 11/27/16 20:00 97.4 75 18 115/69 (84) 98 11/27/16 15:40 98.1 76 20 108/63 (78) 99 11/27/16 11:50 97.5 72 20 122/68 (86) 100 CBC/BMP: 11/25/16 0900 11/27/16 1245 Lab Results Laboratory Tests Test 11/27/16 12:45 Blood Urea Nitrogen 4 MG/DL Creatinine 0.69 MG/DL Random Glucose 100 MG/DL Total Protein 6.5 GM/DL Albumin 2.8 GM/DL Calcium Level 8.5 MG/DL Alkaline Phosphatase 173 U/L Aspartate Amino Transf (AST/SGOT) 987 U/L Alanine Aminotransferase (ALT/SGPT) 649 U/L Total Bilirubin 16.0 MG/DL Sodium Level 134 MEQ/L Potassium Level 3.5 MEQ/L Chloride Level 100 MEQ/L Carbon Dioxide Level 29.9 MEQ/L Anion Gap 4 MEQ/L Estimat Glomerular Filtration Rate 94 ML/MIN Physical Exam General General Appearance: Well Developed, Well Nourished, No Acute Distress, Comfortable Eyes Eye Exam: Pupils Equal, Pupils Reactive, Extraocular Movement Intact Eye Remarks Yellow sclera. Ears & Nose Ears & Nose Exam: Nasal Mucosa [place] [place] [address] Throat Throat Exam: Oral Mucosa [address] & Moist, Oral Pharynx Normal Neck Neck Exam: Neck Supple, Trachea Midline Pulmonary Resp Exam: Clear Bilaterally, Breath Sounds Equal Cardiology CV Exam: Regular, Normal Sinus Rhythm, Good Perfusion Gastrointestinal/Abdomen GI Exam: Soft, Bowel Sounds Present GI Remarks mild right upper quadrant tenderness. Musculoskeletal MS Exam: Joints Intact Integumentary Skin Exam: Warm, Dry, Jaundice Skin Remarks yellow discoloration of skin. Extremeties Extremities Exam: No Edema Neurologic Neuro Exam: Alert, Awake, Oriented, Speech Clear, Moving All Extremities, No Focal Deficits Psychiatric Psych Exam: Appropriate Responses VTE Prophylaxis VTE Prophylaxis Device: SCDs Assessment/Plan Assessment/Plan Assessment/Plan Admission Diagnosis (1) Acute LFTs abnormal secondary to acute hepatitis B Infection. (2) Asthma (3) Hypertension (4) Coronary artery disease (5) Incomplete (6) FEN/PX (7) Drug Abuse Urine tox screen positive for mirijuana. ( 8) Anemia. Plan: Mild Diffuse abdominal pain, high LFTs, and spontaneous . LFTs on admission: (11/18): 1179/961 Alk Phos: 263 Total bilirubin: 9.7 LFTs at last visit/missed ab dx (10/31): 418/711 Alk phos: 264 Total bilirubin: 1.3 As per record in 2012 LFT's were normal : Alk phos: 204 Total Bili: 0.4 LFTs trend down. PLAN - GI input noted. - f/u GI recs for imaging - UDS positive for Mirjuana - acetaminophen level noted - f/u hepatitis panel - NO TYLENOL - motrin PRN for pain - benadryl PRN for itching (2) Asthma ICD Codes: J45.909 - Unspecified asthma, uncomplicated Status: Chronic Plan: albuterol PRN (3) Hypertension ICD Codes: I10 - Essential (primary) hypertension Status: Chronic Plan: Controlled w/ labetalol TID during per patient - pt not currently taking - f/u BPs Hypokalemia resolved. on morphine for abdominal pain / Cramp. Check CBC with diff CMP in AM. Prasanna Liriano MD Nov 28, 2016 10:13
[2016-11-28 11:23] LABS: AUTOMATED NEUTROPHIL # 2.3 TH/MM3 (1.8-7.7); BASOPHIL # 0.1 TH/MM3 (0-0.2); BASOPHIL % 2.2 % (0.0-2.0); EOSINOPHIL # 0.3 TH/MM3 (0-0.4); EOSINOPHIL % 6.5 % (0.0-4.0); HEMATOCRIT 30.5 % (35.0-46.0); LYMPH % 23.5 % (9.0-44.0); LYMPHOCYTE # 1.2 TH/MM3 (1.0-4.8); MEAN CELL VOLUME 89.7 FL (80.0-100.0); MEAN CORPUSCULAR HEMOGLOBIN 30.4 PG (27.0-34.0); MEAN CORPUSCULAR HGB CONC 33.9 % (32.0-36.0); MONO % 22.4 % (0.0-8.0); NEUT % 45.4 % (16.0-70.0); PLATELET COUNT 216 TH/MM3 (150-450); RED CELL DISTRIBUTION WIDTH 21.5 % (11.6-17.2)
[2016-11-28 11:24] LABS: INTERNATIONAL NORMALIZED RATIO 1.2 RATIO; PROTHROMBIN TIME - PATIENT 13.4 SEC (9.8-11.6)
[2016-11-28 11:28] LABS: HEMO FLAGS AUTO DIFF
[2016-11-28 11:30] VITALS: BP 114/74; PULSE 80; RESP 20; TEMP 98.6; O2SAT 98
[2016-11-28 11:38] LABS: ANION GAP 7 MEQ/L (5-15); BICARBONATE 27.3 MEQ/L (21.0-32.0); BLOOD UREA NITROGEN 3 MG/DL (7-18); CHLORIDE 100 MEQ/L (98-107); POTASSIUM 3.8 MEQ/L (3.5-5.1); SODIUM (NA) 134 MEQ/L (136-145)
[2016-11-28 11:40] LABS: ALT (GPT) 663 U/L (10-53)
[2016-11-28 11:46] LABS: ALKALINE PHOSPHATASE 165 U/L (45-117); AST (GOT) 1106 U/L (15-37); BETA HCG QUANT 595 MIU/ML (0-5); TOTAL BILIRUBIN ADULT 16.6 MG/DL (0.2-1.0)
[2016-11-28 12:08] LABS: SCAN/DIFF AUTO DIFF CONFIRMED
[2016-11-28 15:40] VITALS: BP 109/58; PULSE 60; RESP 20; TEMP 98; O2SAT 98
[2016-11-28 20:00] VITALS: BP 111/65; PULSE 83; RESP 17; TEMP 98.8; O2SAT 100
[2016-11-29] VITALS: BP 113/60; PULSE 70; RESP 17; TEMP 98.7; O2SAT 97
[2016-11-29] MEDS: ONDANSETRON HCL 4 MG/2 ML VIAL IVP PRN ×4 (00:03→15:23)
[2016-11-29] MEDS ORDERED: diphenhydrAMINE HCL 50 MG/ML VIAL IV PUSH PRN (02:00)
[2016-11-29] MEDS: SODIUM CHLOR 0.9% 1000 ML INJ 1,000 ML IV SCH ×3 (02:20→20:44)
[2016-11-29] MEDS: MORPHINE SULFATE 4 MG/ML INJ IV PRN ×3 (02:21→17:47)
[2016-11-29 06:28] VITALS: BP 107/54; PULSE 78; RESP 17; TEMP 97.1; O2SAT 98
[2016-11-29 08:00] VITALS: BP 111/64; PULSE 69; RESP 16; TEMP 97.7; O2SAT 100
[2016-11-29] MEDS: DOCUSATE SODIUM 50 MG/SENNA 8.6 MG TAB PO SCH ×2 (08:50→20:44)
[2016-11-29] MEDS: POTASSIUM CHLORIDE 10 MEQ CONTROLLED RELEASE TAB PO SCH (08:51)
[2016-11-29] MEDS: SODIUM CHLORIDE 0.9% FLUSH 10 ML FLUSH IV FLUSH SCH ×2 (08:52→20:44)
[2016-11-29 12:00] VITALS: BP 99/55; PULSE 68; RESP 14; TEMP 98.4; O2SAT 97
[2016-11-29 13:03] LABS: AUTOMATED NEUTROPHIL # 2.6 TH/MM3 (1.8-7.7); BASOPHIL % 0.8 % (0.0-2.0); EOSINOPHIL # 0.2 TH/MM3 (0-0.4); EOSINOPHIL % 3.4 % (0.0-4.0); HEMATOCRIT 32.1 % (35.0-46.0); HEMO FLAGS DIFF FINAL; LYMPH % 23.6 % (9.0-44.0); LYMPHOCYTE # 1.2 TH/MM3 (1.0-4.8); MEAN CELL VOLUME 90.3 FL (80.0-100.0); MEAN CORPUSCULAR HGB CONC 33.2 % (32.0-36.0); MONO % 22.8 % (0.0-8.0); NEUT % 49.4 % (16.0-70.0); PLATELET COUNT 239 TH/MM3 (150-450); RED BLOOD COUNT 3.56 MIL/MM3 (4.00-5.30); RED CELL DISTRIBUTION WIDTH 21.3 % (11.6-17.2); WHITE BLOOD COUNT 5.3 TH/MM3 (4.0-11.0)
[2016-11-29 13:08] LABS: INTERNATIONAL NORMALIZED RATIO 1.2 RATIO; PROTHROMBIN TIME - PATIENT 13.9 SEC (9.8-11.6)
[2016-11-29 15:08] LABS: ALT (GPT) 724 U/L (10-53); ANION GAP 7 MEQ/L (5-15); BICARBONATE 27.3 MEQ/L (21.0-32.0); BLOOD UREA NITROGEN 3 MG/DL (7-18); CHLORIDE 103 MEQ/L (98-107); GLOMERULAR FILTRATION RATE 81 ML/MIN (>89); POTASSIUM 3.9 MEQ/L (3.5-5.1); SODIUM (NA) 137 MEQ/L (136-145)
[2016-11-29 15:15] LABS: ALKALINE PHOSPHATASE 160 U/L (45-117); AST (GOT) 1269 U/L (15-37); TOTAL BILIRUBIN ADULT 17.3 MG/DL (0.2-1.0)
[2016-11-29 16:00] VITALS: BP 116/69; PULSE 73; RESP 12; TEMP 99.4; O2SAT 99
--- NOTE | 2016-11-29 16:33 | HHI.GIFU ---
Subjective Remarks Pt resting in bed says she does not feel well today. ABD tender. No bleeding today but says she bleeds and cramps after shower and she has not showered yet. Objective Vitals I&O Vital Signs Date Time Temp Pulse Resp B/P (MAP) Pulse Ox O2 Delivery O2 Flow Rate FiO2 11/29/16 12:00 98.4 68 14 99/55 (70) 97 11/29/16 08:00 97.7 69 16 111/64 (80) 100 11/29/16 06:28 97.1 78 17 107/54 (71) 98 11/29/16 00:00 98.7 70 17 113/60 (77) 97 11/28/16 20:00 98.8 83 17 111/65 (80) 100 I/O 11/28/16 11/28/16 11/28/16 11/29/16 11/29/16 11/29/16 07:00 15:00 23:00 07:00 15:00 23:00 Intake Total 1480 ml 720 ml 600 ml Balance 1480 ml 720 ml 600 ml Intake Oral 480 ml 720 ml 600 ml IV Total 1000 ml # Voids 2 6 5 # Bowel Movements 0 # Sanitary Pads 1 Pads 1 Pads Laboratory Laboratory Tests Test 11/29/16 12:51 White Blood Count 5.3 Red Blood Count 3.56 Hemoglobin 10.7 Hematocrit 32.1 Mean Corpuscular Volume 90.3 Mean Corpuscular Hemoglobin 30.0 Mean Corpuscular Hemoglobin Concent 33.2 Red Cell Distribution Width 21.3 Platelet Count 239 Mean Platelet Volume 8.8 Neutrophils (%) (Auto) 49.4 Lymphocytes (%) (Auto) 23.6 Monocytes (%) (Auto) 22.8 Eosinophils (%) (Auto) 3.4 Basophils (%) (Auto) 0.8 Neutrophils # (Auto) 2.6 Lymphocytes # (Auto) 1.2 Monocytes # (Auto) 1.2 Eosinophils # (Auto) 0.2 Basophils # (Auto) 0.0 CBC Comment DIFF FINAL Differential Comment Prothrombin Time 13.9 Prothromb Time International Ratio 1.2 Blood Urea Nitrogen 3 Creatinine 0.79 Random Glucose 91 Total Protein 6.3 Albumin 2.6 Calcium Level 8.3 Alkaline Phosphatase 160 Aspartate Amino Transf (AST/SGOT) 1269 Alanine Aminotransferase (ALT/SGPT) 724 Total Bilirubin 17.3 Sodium Level 137 Potassium Level 3.9 Chloride Level 103 Carbon Dioxide Level 27.3 Anion Gap 7 Estimat Glomerular Filtration Rate 81 Ammonia 18 Imaging Last Impressions Pelvis Ultrasound 11/25/16 0000 Signed Impressions: Service Date/Time: Friday, November 25, 2016 10:58 - CONCLUSION: Findings characteristic of an in progress with the irregular gestational sac and products of conception in the lower uterine segment. Otoniel Fox MD Gall Bladder Ultrasound 11/18/16 1300 Signed Impressions: Service Date/Time: Friday, November 18, 2016 13:21 - CONCLUSION: 1. Enlarged echogenic liver consistent with the hepatic steatosis versus medical liver disease. 2. Gallbladder is contracted which accentuates the gallbladder wall. However, there is diffuse gallbladder wall thickening with no pericholecystic fluid, stones or sonographic Villegas sign. Gallbladder wall thickening is commonly seen in patient's with underlying liver disease. If there is significant continued clinical concern, a HIDA scan may be performed to evaluate for cystic duct patency. Jose Yanes MD Physical Exam HEENT: Normocephalic; atraumatic; + scleral icterus CHEST: CTA CARDIAC: RRR ABDOMEN: Soft, nondistended, diffuse TTP; bowel sounds are present EXTREMITIES: No clubbing, cyanosis, or edema. SKIN: + jaundice. GENERATOR OPERATOR: No focal deficits; alert and oriented x 3. Assessment and Plan Plan ASSESSMENT: - Acute hepatitis B. Hepatitis B surface antigen (+), Hepatitis B Core IgM ab. GB US (11/18/16)----> Enlarged echogenic liver consistent with hepatic steatosis vs. medical liver disease. GB is contracted which accentuates the gallbladder wall. However, there is diffuse gallbladder wall thickening. However, there is diffuse gallbladder wall thickening with no pericholecystic fluid, stones, or sonographic Villegas sign. GB wall thickening is commonly seen in patient's with underlying liver disease. If there is continued clinical concern,a HIDA scan could be performed to evaluate patency of cystic duct. Denies ETOH use, illicit drug use, new medications other than labetolol (which she stopped 3 weeks ago). No herbal supplements. No new tattoo's, although her last tattoo was done during a tattoo democrat at a [facility] 10 years ago. (+) New sexual partner about 6 weeks ago. ? GB wall thickening related to acute hepatitis. Hepatitis panel (+) Acute hep b, Monoscreen negative, ABBY neg, AMA <20.0, ASMA neg, Acetaminophen < 2.0, Ethyl alcohol < 3, Cannabinoids (+), Iron saturation 7.8%, Ferritin 32. Alpha 1 antitrypsin 183, Ceruloplasmin 40, AFP 4.6. Hep B DNA 8,440,000. Hep Be Ag positive. - Abdominal pain. Seems to be more cramping since she received cytotec/ methotrexate. - Anemia. HH stable No active gi bleeding. - Hypokalemia. Improved - Suspected Ectopic in cervix. S/P Cytotec. S/P Methotrexate, levels are trending down. 11/29/16 LFTs worsening, ?methotrexate. HH stable. PLAN: - daily LFTs, PT, CBC - Will monitor closely - if continues to worsen, may need transfer to tertiary center - [facility], low fat - Avoid hepatotoxic meds - Pt seen and examined by Dr. Howell and myself and this note is written on her behalf Eri Be Nov 29, 2016 16:33
--- NOTE | 2016-11-29 16:40 | HHI.PR ---
Subjective History of Present Illness Patient feel weak and tired have jaundice GI input noted LFTs noted.. no Acute issue Review of Systems Constitutional Constitutional: Fatigue, Weakness Eyes Eyes Remarks yellow sclera. GI/Abdomen GI/Abdominal Exam: Abdominal Pain Integumentary Skin Remarks Yellow discoloration of skin. Vitals/Results Vital Signs Vital Signs Date Time Temp Pulse Resp B/P (MAP) Pulse Ox O2 Delivery O2 Flow Rate FiO2 11/29/16 12:00 98.4 68 14 99/55 (70) 97 11/29/16 08:00 97.7 69 16 111/64 (80) 100 11/29/16 06:28 97.1 78 17 107/54 (71) 98 11/29/16 00:00 98.7 70 17 113/60 (77) 97 11/28/16 20:00 98.8 83 17 111/65 (80) 100 CBC/BMP: 11/29/16 1251 11/29/16 1251 Lab Results Laboratory Tests Test 11/29/16 12:51 White Blood Count 5.3 TH/MM3 Red Blood Count 3.56 MIL/MM3 Hemoglobin 10.7 GM/DL Hematocrit 32.1 % Mean Corpuscular Volume 90.3 FL Mean Corpuscular Hemoglobin 30.0 PG Mean Corpuscular Hemoglobin Concent 33.2 % Red Cell Distribution Width 21.3 % Platelet Count 239 TH/MM3 Mean Platelet Volume 8.8 FL Neutrophils (%) (Auto) 49.4 % Lymphocytes (%) (Auto) 23.6 % Monocytes (%) (Auto) 22.8 % Eosinophils (%) (Auto) 3.4 % Basophils (%) (Auto) 0.8 % Neutrophils # (Auto) 2.6 TH/MM3 Lymphocytes # (Auto) 1.2 TH/MM3 Monocytes # (Auto) 1.2 TH/MM3 Eosinophils # (Auto) 0.2 TH/MM3 Basophils # (Auto) 0.0 TH/MM3 CBC Comment DIFF FINAL Differential Comment Prothrombin Time 13.9 SEC Prothromb Time International Ratio 1.2 RATIO Blood Urea Nitrogen 3 MG/DL Creatinine 0.79 MG/DL Random Glucose 91 MG/DL Total Protein 6.3 GM/DL Albumin 2.6 GM/DL Calcium Level 8.3 MG/DL Alkaline Phosphatase 160 U/L Aspartate Amino Transf (AST/SGOT) 1269 U/L Alanine Aminotransferase (ALT/SGPT) 724 U/L Total Bilirubin 17.3 MG/DL Sodium Level 137 MEQ/L Potassium Level 3.9 MEQ/L Chloride Level 103 MEQ/L Carbon Dioxide Level 27.3 MEQ/L Anion Gap 7 MEQ/L Estimat Glomerular Filtration Rate 81 ML/MIN Ammonia 18 MCMOL/L Physical Exam General General Appearance: Well Developed, Well Nourished, No Acute Distress, Comfortable Eyes Eye Exam: Pupils Equal, Pupils Reactive, Extraocular Movement Intact Eye Remarks Yellow sclera. Ears & Nose Ears & Nose Exam: Nasal Mucosa [place] Throat Throat Exam: Oral Mucosa [place] & Moist, Oral Pharynx Normal Neck Neck Exam: Neck Supple, Trachea Midline Pulmonary Resp Exam: Clear Bilaterally, Breath Sounds Equal Cardiology CV Exam: Regular, Normal Sinus Rhythm, Good Perfusion Gastrointestinal/Abdomen GI Exam: Soft, Bowel Sounds Present GI Remarks mild right upper quadrant tenderness. Musculoskeletal MS Exam: Joints Intact Integumentary Skin Exam: Warm, Dry, Jaundice Skin Remarks yellow discoloration of skin. Extremeties Extremities Exam: No Edema Neurologic Neuro Exam: Alert, Awake, Oriented, Speech Clear, Moving All Extremities, No Focal Deficits Psychiatric Psych Exam: Appropriate Responses VTE Prophylaxis VTE Prophylaxis Device: SCDs Assessment/Plan Assessment/Plan Assessment/Plan Admission Diagnosis (1) Acute LFTs abnormal secondary to acute hepatitis B Infection. (2) Asthma (3) Hypertension (4) Coronary artery disease (5) Incomplete (6) FEN/PX (7) Drug Abuse Urine tox screen positive for mirijuana. ( 8) Anemia. Plan: Mild Diffuse abdominal pain, high LFTs, and spontaneous . LFTs on admission: (11/18): 1179/961 Alk Phos: 263 Total bilirubin: 9.7 LFTs at last visit/missed ab dx (10/31): 418/711 Alk phos: 264 Total bilirubin: 1.3 As per record in 2012 LFT's were normal : Alk phos: 204 Total Bili: 0.4 LFTs trend down. PLAN - GI input noted. - f/u GI recs for imaging - UDS positive for Mirjuana - acetaminophen level noted - f/u hepatitis panel - NO TYLENOL - motrin PRN for pain - benadryl PRN for itching (2) Asthma ICD Codes: J45.909 - Unspecified asthma, uncomplicated Status: Chronic Plan: albuterol PRN (3) Hypertension ICD Codes: I10 - Essential (primary) hypertension Status: Chronic Plan: Controlled w/ labetalol TID during per patient - pt not currently taking - f/u BPs Hypokalemia resolved. on morphine for abdominal pain / Cramp. Check CBC with diff CMP in AM. Prasanna Liriano MD Nov 29, 2016 16:40
[2016-11-29 20:00] VITALS: BP 106/66; PULSE 73; RESP 17; TEMP 99.5; O2SAT 98
[2016-11-30] VITALS: BP 99/62; PULSE 82; RESP 16; TEMP 101; O2SAT 98
[2016-11-30] MEDS: MORPHINE SULFATE 4 MG/ML INJ IV PRN ×4 (00:30→21:42)
[2016-11-30 04:00] VITALS: BP 112/71; PULSE 81; RESP 16; TEMP 99.2; O2SAT 98
[2016-11-30] MEDS: ONDANSETRON HCL 4 MG/2 ML VIAL IVP PRN ×3 (04:02→17:57)
[2016-11-30 06:26] LABS: ALT (GPT) 709 U/L (10-53); ANION GAP 6 MEQ/L (5-15); BICARBONATE 28.5 MEQ/L (21.0-32.0); BLOOD UREA NITROGEN 2 MG/DL (7-18); CHLORIDE 102 MEQ/L (98-107); GLOMERULAR FILTRATION RATE 88 ML/MIN (>89); POTASSIUM 3.9 MEQ/L (3.5-5.1); SODIUM (NA) 136 MEQ/L (136-145)
[2016-11-30 06:33] LABS: ALKALINE PHOSPHATASE 152 U/L (45-117); AST (GOT) 1221 U/L (15-37); TOTAL BILIRUBIN ADULT 18.4 MG/DL (0.2-1.0)
[2016-11-30 06:38] LABS: HEMATOCRIT 30.5 % (35.0-46.0); MEAN CELL VOLUME 89.3 FL (80.0-100.0); MEAN CORPUSCULAR HEMOGLOBIN 29.9 PG (27.0-34.0); MEAN CORPUSCULAR HGB CONC 33.5 % (32.0-36.0); PLATELET COUNT 212 TH/MM3 (150-450); RED BLOOD COUNT 3.42 MIL/MM3 (4.00-5.30); RED CELL DISTRIBUTION WIDTH 20.7 % (11.6-17.2); WHITE BLOOD COUNT 6.1 TH/MM3 (4.0-11.0)
[2016-11-30 06:51] LABS: HEMO FLAGS AUTO DIFF
[2016-11-30 08:00] VITALS: BP 103/68; PULSE 86; RESP 18; TEMP 98.2; O2SAT 99
[2016-11-30] MEDS: POTASSIUM CHLORIDE 10 MEQ CONTROLLED RELEASE TAB PO SCH (08:19)
[2016-11-30] MEDS: SODIUM CHLOR 0.9% 1000 ML INJ 1,000 ML IV SCH ×2 (08:21→20:47)
[2016-11-30] MEDS: DOCUSATE SODIUM 50 MG/SENNA 8.6 MG TAB PO SCH ×2 (08:21→20:47)
[2016-11-30] MEDS: SODIUM CHLORIDE 0.9% FLUSH 10 ML FLUSH IV FLUSH SCH ×2 (09:00→19:32)
--- NOTE | 2016-11-30 09:52 | HHI.PR ---
Subjective History of Present Illness Patient feel weak and tired have jaundice GI input noted LFTs noted.. no Acute issue d/w DAVID Lambert Review of Systems Constitutional Constitutional: Fatigue, Weakness Eyes Eyes Remarks yellow sclera. GI/Abdomen GI/Abdominal Exam: Abdominal Pain Integumentary Skin Remarks Yellow discoloration of skin. Vitals/Results Intake & Output 11/30/16 11/30/16 12/01/16 15:00 23:00 07:00 Intake Total 1000 ml Balance 1000 ml IV Total 1000 ml Vital Signs Vital Signs Date Time Temp Pulse Resp B/P (MAP) Pulse Ox O2 Delivery O2 Flow Rate FiO2 11/30/16 08:00 98.2 86 18 103/68 (80) 99 11/30/16 05:23 16 11/30/16 04:00 99.2 81 16 112/71 (85) 98 11/30/16 00:35 16 11/30/16 00:00 101.0 82 16 99/62 (74) 98 11/29/16 20:00 99.5 73 17 106/66 (79) 98 11/29/16 16:00 99.4 73 12 116/69 (85) 99 11/29/16 12:00 98.4 68 14 99/55 (70) 97 CBC/BMP: 11/30/16 0513 11/30/16 0513 Lab Results Laboratory Tests Test 11/29/16 12:51 11/30/16 05:13 White Blood Count 5.3 TH/MM3 6.1 TH/MM3 Red Blood Count 3.56 MIL/MM3 3.42 MIL/MM3 Hemoglobin 10.7 GM/DL 10.2 GM/DL Hematocrit 32.1 % 30.5 % Mean Corpuscular Volume 90.3 FL 89.3 FL Mean Corpuscular Hemoglobin 30.0 PG 29.9 PG Mean Corpuscular Hemoglobin Concent 33.2 % 33.5 % Red Cell Distribution Width 21.3 % 20.7 % Platelet Count 239 TH/MM3 212 TH/MM3 Mean Platelet Volume 8.8 FL 9.4 FL Neutrophils (%) (Auto) 49.4 % Lymphocytes (%) (Auto) 23.6 % Monocytes (%) (Auto) 22.8 % Eosinophils (%) (Auto) 3.4 % Basophils (%) (Auto) 0.8 % Neutrophils # (Auto) 2.6 TH/MM3 Lymphocytes # (Auto) 1.2 TH/MM3 Monocytes # (Auto) 1.2 TH/MM3 Eosinophils # (Auto) 0.2 TH/MM3 Basophils # (Auto) 0.0 TH/MM3 CBC Comment DIFF FINAL AUTO DIFF Differential Comment Prothrombin Time 13.9 SEC Prothromb Time International Ratio 1.2 RATIO Blood Urea Nitrogen 3 MG/DL 2 MG/DL Creatinine 0.79 MG/DL 0.73 MG/DL Random Glucose 91 MG/DL 92 MG/DL Total Protein 6.3 GM/DL 6.1 GM/DL Albumin 2.6 GM/DL 2.6 GM/DL Calcium Level 8.3 MG/DL 8.1 MG/DL Alkaline Phosphatase 160 U/L 152 U/L Aspartate Amino Transf (AST/SGOT) 1269 U/L 1221 U/L Alanine Aminotransferase (ALT/SGPT) 724 U/L 709 U/L Total Bilirubin 17.3 MG/DL 18.4 MG/DL Sodium Level 137 MEQ/L 136 MEQ/L Potassium Level 3.9 MEQ/L 3.9 MEQ/L Chloride Level 103 MEQ/L 102 MEQ/L Carbon Dioxide Level 27.3 MEQ/L 28.5 MEQ/L Anion Gap 7 MEQ/L 6 MEQ/L Estimat Glomerular Filtration Rate 81 ML/MIN 88 ML/MIN Ammonia 18 MCMOL/L Physical Exam General General Appearance: Well Developed, Well Nourished, No Acute Distress, Comfortable Eyes Eye Exam: Pupils Equal, Pupils Reactive, Extraocular Movement Intact Eye Remarks Yellow sclera. Ears & Nose Ears & Nose Exam: Nasal Mucosa [place] Throat Throat Exam: Oral Mucosa [place] & Moist, Oral Pharynx Normal Neck Neck Exam: Neck Supple, Trachea Midline Pulmonary Resp Exam: Clear Bilaterally, Breath Sounds Equal Cardiology CV Exam: Regular, Normal Sinus Rhythm, Good Perfusion Gastrointestinal/Abdomen GI Exam: Soft, Bowel Sounds Present GI Remarks mild right upper quadrant tenderness. Musculoskeletal MS Exam: Joints Intact Integumentary Skin Exam: Warm, Dry, Jaundice Skin Remarks yellow discoloration of skin. Extremeties Extremities Exam: No Edema Neurologic Neuro Exam: Alert, Awake, Oriented, Speech Clear, Moving All Extremities, No Focal Deficits Psychiatric Psych Exam: Appropriate Responses VTE Prophylaxis VTE Prophylaxis Device: SCDs Assessment/Plan Assessment/Plan Assessment/Plan Admission Diagnosis (1) Acute LFTs abnormal secondary to acute hepatitis B Infection. (2) Asthma (3) Hypertension (4) Coronary artery disease (5) Incomplete (6) FEN/PX (7) Drug Abuse Urine tox screen positive for mirijuana. ( 8) Anemia. Plan: Mild Diffuse abdominal pain, high LFTs, and spontaneous . LFTs on admission: (11/18): 1179/961 Alk Phos: 263 Total bilirubin: 9.7 LFTs at last visit/missed ab dx (10/31): 418/711 Alk phos: 264 Total bilirubin: 1.3 As per record in 2012 LFT's were normal : Alk phos: 204 Total Bili: 0.4 LFTs trend down. PLAN - GI input noted. - f/u GI recs for imaging - UDS positive for Mirjuana - acetaminophen level noted - f/u hepatitis panel - NO TYLENOL - motrin PRN for pain - benadryl PRN for itching (2) Asthma ICD Codes: J45.909 - Unspecified asthma, uncomplicated Status: Chronic Plan: albuterol PRN (3) Hypertension ICD Codes: I10 - Essential (primary) hypertension Status: Chronic Plan: Controlled w/ labetalol TID during per patient - pt not currently taking - f/u BPs Hypokalemia resolved. on morphine for abdominal pain / Cramp. Check CBC with diff CMP in AM. Prasanna Liriano MD Nov 30, 2016 09:52
[2016-11-30 10:02] LABS: BANDS 6 % (0-6); EOSINOPHILS 5 % (0-4); NEUTROPHIL # MANUAL DIFF 3.3 TH/MM3 (1.8-7.7); PLATELET ESTIMATE SMEAR NORMAL (NORMAL); PLATELET MORPHOLOGY NORMAL (NORMAL); POLYS (SEG NEUTROPHILS) 48 % (16-70); SCAN/DIFF FINAL DIFF MANUAL; WBC DIFF SAMPLE 100
[2016-11-30 10:03] LABS: TARGET CELLS 1+ (NORMAL)
[2016-11-30 12:00] VITALS: BP 108/72; PULSE 77; RESP 16; TEMP 98.6; O2SAT 98
[2016-11-30 16:00] VITALS: BP 118/76; PULSE 88; RESP 18; TEMP 98.4; O2SAT 99
[2016-11-30 20:00] VITALS: BP 101/64; PULSE 68; RESP 17; TEMP 97.9; O2SAT 97
[2016-12-01] VITALS: BP 103/61; PULSE 65; RESP 16; TEMP 97.3; O2SAT 99
[2016-12-01] MEDS: ONDANSETRON HCL 4 MG/2 ML VIAL IVP PRN ×4 (00:53→20:47)
[2016-12-01 04:00] VITALS: BP 119/69; PULSE 74; RESP 17; TEMP 97.3; O2SAT 98
[2016-12-01] MEDS: SODIUM CHLOR 0.9% 1000 ML INJ 1,000 ML IV SCH ×2 (04:14→15:58)
[2016-12-01] MEDS: MORPHINE SULFATE 4 MG/ML INJ IV PRN ×3 (04:14→18:26)
[2016-12-01 06:52] LABS: AUTOMATED NEUTROPHIL # 2.9 TH/MM3 (1.8-7.7); BASOPHIL # 0.1 TH/MM3 (0-0.2); BASOPHIL % 0.8 % (0.0-2.0); EOSINOPHIL # 0.2 TH/MM3 (0-0.4); EOSINOPHIL % 3.5 % (0.0-4.0); HEMATOCRIT 30.5 % (35.0-46.0); HEMO FLAGS DIFF FINAL; LYMPH % 22.2 % (9.0-44.0); LYMPHOCYTE # 1.5 TH/MM3 (1.0-4.8); MEAN CELL VOLUME 90.1 FL (80.0-100.0); MEAN CORPUSCULAR HEMOGLOBIN 29.9 PG (27.0-34.0); MEAN CORPUSCULAR HGB CONC 33.2 % (32.0-36.0); MONO % 29.8 % (0.0-8.0); NEUT % 43.7 % (16.0-70.0); PLATELET COUNT 204 TH/MM3 (150-450); RED BLOOD COUNT 3.39 MIL/MM3 (4.00-5.30); RED CELL DISTRIBUTION WIDTH 21.1 % (11.6-17.2); WHITE BLOOD COUNT 6.7 TH/MM3 (4.0-11.0)
[2016-12-01 07:26] LABS: ALT (GPT) 697 U/L (10-53); ANION GAP 7 MEQ/L (5-15); BICARBONATE 27.1 MEQ/L (21.0-32.0); BLOOD UREA NITROGEN 2 MG/DL (7-18); CHLORIDE 102 MEQ/L (98-107); POTASSIUM 3.4 MEQ/L (3.5-5.1); SODIUM (NA) 136 MEQ/L (136-145)
[2016-12-01 07:52] LABS: ALKALINE PHOSPHATASE 149 U/L (45-117); AST (GOT) 1205 U/L (15-37); TOTAL BILIRUBIN ADULT 18.6 MG/DL (0.2-1.0)
[2016-12-01 08:00] VITALS: BP 103/59; PULSE 79; RESP 18; TEMP 97.7; O2SAT 100
[2016-12-01] MEDS: POTASSIUM CHLORIDE 10 MEQ CONTROLLED RELEASE TAB PO SCH (08:01)
[2016-12-01] MEDS: DOCUSATE SODIUM 50 MG/SENNA 8.6 MG TAB PO SCH ×2 (08:03→20:37)
[2016-12-01] MEDS: SODIUM CHLORIDE 0.9% FLUSH 10 ML FLUSH IV FLUSH SCH ×2 (08:03→20:37)
--- NOTE | 2016-12-01 11:11 | HHI.PR ---
Subjective History of Present Illness Patient feel weak and tired have jaundice GI input noted LFTs noted.. no Acute issue Discharge plan when ok with GI. Review of Systems Constitutional Constitutional: Fatigue, Weakness Eyes Eyes Remarks yellow sclera. GI/Abdomen GI/Abdominal Exam: Abdominal Pain Integumentary Skin Remarks Yellow discoloration of skin. Vitals/Results Vital Signs Vital Signs Date Time Temp Pulse Resp B/P (MAP) Pulse Ox O2 Delivery O2 Flow Rate FiO2 12/01/16 08:00 97.7 79 18 103/59 (74) 100 12/01/16 04:00 97.3 74 17 119/69 (86) 98 12/01/16 00:00 97.3 65 16 103/61 (75) 99 11/30/16 20:00 97.9 68 17 101/64 (76) 97 11/30/16 16:00 98.4 88 18 118/76 (90) 99 11/30/16 12:00 98.6 77 16 108/72 (84) 98 CBC/BMP: 12/01/16 0549 12/01/16 0549 Lab Results Laboratory Tests Test 12/01/16 05:49 White Blood Count 6.7 TH/MM3 Red Blood Count 3.39 MIL/MM3 Hemoglobin 10.1 GM/DL Hematocrit 30.5 % Mean Corpuscular Volume 90.1 FL Mean Corpuscular Hemoglobin 29.9 PG Mean Corpuscular Hemoglobin Concent 33.2 % Red Cell Distribution Width 21.1 % Platelet Count 204 TH/MM3 Mean Platelet Volume 9.3 FL Neutrophils (%) (Auto) 43.7 % Lymphocytes (%) (Auto) 22.2 % Monocytes (%) (Auto) 29.8 % Eosinophils (%) (Auto) 3.5 % Basophils (%) (Auto) 0.8 % Neutrophils # (Auto) 2.9 TH/MM3 Lymphocytes # (Auto) 1.5 TH/MM3 Monocytes # (Auto) 2.0 TH/MM3 Eosinophils # (Auto) 0.2 TH/MM3 Basophils # (Auto) 0.1 TH/MM3 CBC Comment DIFF FINAL Differential Comment Blood Urea Nitrogen 2 MG/DL Creatinine 0.64 MG/DL Random Glucose 82 MG/DL Total Protein 6.1 GM/DL Albumin 2.4 GM/DL Calcium Level 7.8 MG/DL Alkaline Phosphatase 149 U/L Aspartate Amino Transf (AST/SGOT) 1205 U/L Alanine Aminotransferase (ALT/SGPT) 697 U/L Total Bilirubin 18.6 MG/DL Sodium Level 136 MEQ/L Potassium Level 3.4 MEQ/L Chloride Level 102 MEQ/L Carbon Dioxide Level 27.1 MEQ/L Anion Gap 7 MEQ/L Physical Exam General General Appearance: Well Developed, Well Nourished, No Acute Distress, Comfortable Eyes Eye Exam: Pupils Equal, Pupils Reactive, Extraocular Movement Intact Eye Remarks Yellow sclera. Ears & Nose Ears & Nose Exam: Nasal Mucosa [place] Throat Throat Exam: Oral Mucosa [place] & Moist, Oral Pharynx Normal Neck Neck Exam: Neck Supple, Trachea Midline Pulmonary Resp Exam: Clear Bilaterally, Breath Sounds Equal Cardiology CV Exam: Regular, Normal Sinus Rhythm, Good Perfusion Gastrointestinal/Abdomen GI Exam: Soft, Bowel Sounds Present GI Remarks mild right upper quadrant tenderness. Musculoskeletal MS Exam: Joints Intact Integumentary Skin Exam: Warm, Dry, Jaundice Skin Remarks yellow discoloration of skin. Extremeties Extremities Exam: No Edema Neurologic Neuro Exam: Alert, Awake, Oriented, Speech Clear, Moving All Extremities, No Focal Deficits Psychiatric Psych Exam: Appropriate Responses VTE Prophylaxis VTE Prophylaxis Device: SCDs Assessment/Plan Assessment/Plan Assessment/Plan Admission Diagnosis (1) Acute LFTs abnormal secondary to acute hepatitis B Infection. (2) Asthma (3) Hypertension (4) Coronary artery disease (5) Incomplete (6) FEN/PX (7) Drug Abuse Urine tox screen positive for mirijuana. ( 8) Anemia. Plan: Mild Diffuse abdominal pain, high LFTs, and spontaneous . LFTs on admission: (11/18): 1179/961 Alk Phos: 263 Total bilirubin: 9.7 LFTs at last visit/missed ab dx (10/31): 418/711 Alk phos: 264 Total bilirubin: 1.3 As per record in 2012 LFT's were normal : Alk phos: 204 Total Bili: 0.4 LFTs trend down. PLAN - GI input noted. - f/u GI recs for imaging - UDS positive for Mirjuana - acetaminophen level noted - f/u hepatitis panel - NO TYLENOL - motrin PRN for pain - benadryl PRN for itching (2) Asthma ICD Codes: J45.909 - Unspecified asthma, uncomplicated Status: Chronic Plan: albuterol PRN (3) Hypertension ICD Codes: I10 - Essential (primary) hypertension Status: Chronic Plan: Controlled w/ labetalol TID during per patient - pt not currently taking - f/u BPs Hypokalemia resolved. on morphine for abdominal pain / Cramp. Check CBC with diff CMP in AM. Discharge plan when ok with GI. Discussed Condition with: Patient Prasanna Liriano MD Dec 01, 2016 11:10
[2016-12-01 12:00] VITALS: BP 102/64; PULSE 88; RESP 18; TEMP 97.6; O2SAT 100
[2016-12-01 16:00] VITALS: BP 98/56; PULSE 79; RESP 18; TEMP 98; O2SAT 99
[2016-12-01 20:00] VITALS: BP 112/73; PULSE 76; RESP 18; TEMP 98.1; O2SAT 99
[2016-12-02] VITALS (7 sets, daily range): BP systolic 103–126; BP diastolic 55–74; PULSE 68–83; RESP 15–19; TEMP 96.8–99.3; O2SAT 96–98
[2016-12-02] MEDS: MORPHINE SULFATE 4 MG/ML INJ IV PRN ×4 (01:04→21:36)
[2016-12-02] MEDS: SODIUM CHLOR 0.9% 1000 ML INJ 1,000 ML IV SCH ×3 (01:05→18:01)
[2016-12-02] MEDS: ONDANSETRON HCL 4 MG/2 ML VIAL IVP PRN ×3 (04:18→18:01)
[2016-12-02] MEDS: POTASSIUM CHLORIDE 10 MEQ CONTROLLED RELEASE TAB PO SCH (07:40)
[2016-12-02] MEDS: SODIUM CHLORIDE 0.9% FLUSH 10 ML FLUSH IV FLUSH SCH ×2 (07:41→21:00)
[2016-12-02] MEDS: DOCUSATE SODIUM 50 MG/SENNA 8.6 MG TAB PO SCH ×2 (07:41→21:00)
--- NOTE | 2016-12-02 08:40 | HHI.PR ---
Subjective History of Present Illness Patient feel weak and tired have jaundice GI input noted LFTs noted.. no Acute issue Discharge plan when ok with GI. d/w RN Desiree Low Potassium will replace and monitor. Review of Systems Constitutional Constitutional: Fatigue, Weakness Eyes Eyes Remarks yellow sclera. GI/Abdomen GI/Abdominal Exam: Abdominal Pain Integumentary Skin Remarks Yellow discoloration of skin. Vitals/Results Vital Signs Vital Signs Date Time Temp Pulse Resp B/P (MAP) Pulse Ox O2 Delivery O2 Flow Rate FiO2 12/02/16 04:00 98.9 83 18 111/61 (78) 98 12/02/16 00:00 99.3 77 17 113/68 (83) 98 12/01/16 20:00 98.1 76 18 112/73 (86) 99 12/01/16 16:00 98.0 79 18 98/56 (70) 99 12/01/16 12:00 97.6 88 18 102/64 (77) 100 CBC/BMP: 12/01/16 0549 12/01/16 0549 Physical Exam General General Appearance: Well Developed, Well Nourished, No Acute Distress, Comfortable Eyes Eye Exam: Pupils Equal, Pupils Reactive, Extraocular Movement Intact Eye Remarks Yellow sclera. Ears & Nose Ears & Nose Exam: Nasal Mucosa [place] Throat Throat Exam: Oral Mucosa [place] & Moist, Oral Pharynx Normal Neck Neck Exam: Neck Supple, Trachea Midline Pulmonary Resp Exam: Clear Bilaterally, Breath Sounds Equal Cardiology CV Exam: Regular, Normal Sinus Rhythm, Good Perfusion Gastrointestinal/Abdomen GI Exam: Soft, Bowel Sounds Present GI Remarks mild right upper quadrant tenderness. Musculoskeletal MS Exam: Joints Intact Integumentary Skin Exam: Warm, Dry, Jaundice Skin Remarks yellow discoloration of skin. Extremeties Extremities Exam: No Edema Neurologic Neuro Exam: Alert, Awake, Oriented, Speech Clear, Moving All Extremities, No Focal Deficits Psychiatric Psych Exam: Appropriate Responses VTE Prophylaxis VTE Prophylaxis Device: SCDs Assessment/Plan Assessment/Plan Assessment/Plan Admission Diagnosis (1) Acute LFTs abnormal secondary to acute hepatitis B Infection. (2) Asthma (3) Hypertension (4) Coronary artery disease (5) Incomplete (6) FEN/PX (7) Drug Abuse Urine tox screen positive for mirijuana. ( 8) Anemia. Plan: Mild Diffuse abdominal pain, high LFTs, and spontaneous . LFTs on admission: (11/18): 1179/961 Alk Phos: 263 Total bilirubin: 9.7 LFTs at last visit/missed ab dx (10/31): 418/711 Alk phos: 264 Total bilirubin: 1.3 As per record in 2012 LFT's were normal : Alk phos: 204 Total Bili: 0.4 LFTs trend down. PLAN - GI input noted. - f/u GI recs for imaging - UDS positive for Mirjuana - acetaminophen level noted - f/u hepatitis panel - NO TYLENOL - motrin PRN for pain - benadryl PRN for itching (2) Asthma ICD Codes: J45.909 - Unspecified asthma, uncomplicated Status: Chronic Plan: albuterol PRN (3) Hypertension ICD Codes: I10 - Essential (primary) hypertension Status: Chronic Plan: Controlled with labetalol TID during per patient - pt not currently taking - f/u BPs on morphine for abdominal pain / Cramp. Hypokalemia will replace and monitor. Check CBC with diff CMP in AM. Discharge plan when ok with GI. Discussed Condition with: Patient Prasanna Liriano MD Dec 02, 2016 08:40
[2016-12-02] MEDS ORDERED: POTASSIUM CHLORIDE 10 MEQ CONTROLLED RELEASE TAB PO ONE (08:45)
[2016-12-02 09:54] LABS: AUTOMATED NEUTROPHIL # 3.5 TH/MM3 (1.8-7.7); BASOPHIL # 0.1 TH/MM3 (0-0.2); BASOPHIL % 1.1 % (0.0-2.0); EOSINOPHIL # 0.2 TH/MM3 (0-0.4); EOSINOPHIL % 2.1 % (0.0-4.0); HEMATOCRIT 30.7 % (35.0-46.0); LYMPH % 19.1 % (9.0-44.0); LYMPHOCYTE # 1.4 TH/MM3 (1.0-4.8); MEAN CELL VOLUME 89.9 FL (80.0-100.0); MEAN CORPUSCULAR HEMOGLOBIN 30.1 PG (27.0-34.0); MEAN CORPUSCULAR HGB CONC 33.5 % (32.0-36.0); MONO % 29.5 % (0.0-8.0); NEUT % 48.2 % (16.0-70.0); PLATELET COUNT 208 TH/MM3 (150-450); RED BLOOD COUNT 3.41 MIL/MM3 (4.00-5.30); RED CELL DISTRIBUTION WIDTH 19.9 % (11.6-17.2); WHITE BLOOD COUNT 7.3 TH/MM3 (4.0-11.0)
[2016-12-02 10:08] LABS: HEMO FLAGS AUTO DIFF
[2016-12-02 10:15] LABS: ANION GAP 7 MEQ/L (5-15); BICARBONATE 28.1 MEQ/L (21.0-32.0); BLOOD UREA NITROGEN 2 MG/DL (7-18); CHLORIDE 101 MEQ/L (98-107); POTASSIUM 3.4 MEQ/L (3.5-5.1); SODIUM (NA) 136 MEQ/L (136-145)
[2016-12-02 10:23] LABS: ALKALINE PHOSPHATASE 138 U/L (45-117); ALT (GPT) 621 U/L (10-53); AST (GOT) 1033 U/L (15-37); TOTAL BILIRUBIN ADULT 18.8 MG/DL (0.2-1.0)
[2016-12-02 11:30] LABS: SCAN/DIFF AUTO DIFF CONFIRMED
--- NOTE | 2016-12-02 16:13 | HHI.GIFU ---
Subjective Remarks Pt resting in bed. Still jaundiced. Eating some. Still with RUQ pain. (Eri Be) Objective Vitals I&O Vital Signs Date Time Temp Pulse Resp B/P (MAP) Pulse Ox O2 Delivery O2 Flow Rate FiO2 12/02/16 12:57 96.8 78 19 126/65 (85) 96 12/02/16 08:50 98.4 70 19 103/55 (71) 96 12/02/16 04:00 98.9 83 18 111/61 (78) 98 12/02/16 00:00 99.3 77 17 113/68 (83) 98 12/01/16 20:00 98.1 76 18 112/73 (86) 99 I/O 12/01/16 12/01/16 12/01/16 12/02/16 12/02/16 12/02/16 07:00 15:00 23:00 07:00 15:00 23:00 Intake Total 480 ml 2680 ml 960 ml 1000 ml Balance 480 ml 2680 ml 960 ml 1000 ml Intake Oral 480 ml 1680 ml 960 ml IV Total 1000 ml 1000 ml # Voids 6 11 7 # Bowel Movements 0 Laboratory Laboratory Tests Test 12/02/16 08:00 White Blood Count 7.3 Red Blood Count 3.41 Hemoglobin 10.3 Hematocrit 30.7 Mean Corpuscular Volume 89.9 Mean Corpuscular Hemoglobin 30.1 Mean Corpuscular Hemoglobin Concent 33.5 Red Cell Distribution Width 19.9 Platelet Count 208 Mean Platelet Volume 10.0 Neutrophils (%) (Auto) 48.2 Lymphocytes (%) (Auto) 19.1 Monocytes (%) (Auto) 29.5 Eosinophils (%) (Auto) 2.1 Basophils (%) (Auto) 1.1 Neutrophils # (Auto) 3.5 Lymphocytes # (Auto) 1.4 Monocytes # (Auto) 2.2 Eosinophils # (Auto) 0.2 Basophils # (Auto) 0.1 CBC Comment AUTO DIFF Differential Comment AUTO DIFF CONFIRMED Blood Urea Nitrogen 2 Creatinine 0.62 Random Glucose 97 Total Protein 5.9 Albumin 2.4 Calcium Level 8.2 Alkaline Phosphatase 138 Aspartate Amino Transf (AST/SGOT) 1033 Alanine Aminotransferase (ALT/SGPT) 621 Total Bilirubin 18.8 Sodium Level 136 Potassium Level 3.4 Chloride Level 101 Carbon Dioxide Level 28.1 Anion Gap 7 Imaging Last Impressions Pelvis Ultrasound 11/25/16 0000 Signed Impressions: Service Date/Time: Friday, November 25, 2016 10:58 - CONCLUSION: Findings characteristic of an in progress with the irregular gestational sac and products of conception in the lower uterine segment. Otoniel Fox MD Gall Bladder Ultrasound 11/18/16 1300 Signed Impressions: Service Date/Time: Friday, November 18, 2016 13:21 - CONCLUSION: 1. Enlarged echogenic liver consistent with the hepatic steatosis versus medical liver disease. 2. Gallbladder is contracted which accentuates the gallbladder wall. However, there is diffuse gallbladder wall thickening with no pericholecystic fluid, stones or sonographic Villegas sign. Gallbladder wall thickening is commonly seen in patient's with underlying liver disease. If there is significant continued clinical concern, a HIDA scan may be performed to evaluate for cystic duct patency. Jose Yanes MD Physical Exam HEENT: Normocephalic; atraumatic; + icterus CHEST: CTA CARDIAC: RRR ABDOMEN: Soft, nondistended, diffuse TTP; bowel sounds are present EXTREMITIES: No clubbing, cyanosis, or edema. SKIN: + jaundice. 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 ([facility]) Assessment and Plan Plan ASSESSMENT: - Acute hepatitis B. Hepatitis B surface antigen (+), Hepatitis B Core IgM ab. GB US (11/18/16)----> Enlarged echogenic liver consistent with hepatic steatosis vs. medical liver disease. GB is contracted which accentuates the gallbladder wall. However, there is diffuse gallbladder wall thickening. However, there is diffuse gallbladder wall thickening with no pericholecystic fluid, stones, or sonographic Villegas sign. GB wall thickening is commonly seen in patient's with underlying liver disease. If there is continued clinical concern,a HIDA scan could be performed to evaluate patency of cystic duct. Denies ETOH use, illicit drug use, new medications other than labetolol (which she stopped 3 weeks ago). No herbal supplements. No new tattoo's, although her last tattoo was done during a tattoo libertarian at a [employer] house 10 years ago. (+) New sexual partner about 6 weeks ago. ? GB wall thickening related to acute hepatitis. Hepatitis panel (+) Acute hep b, Monoscreen negative, ABBY neg, AMA <20.0, ASMA neg, Acetaminophen < 2.0, Ethyl alcohol < 3, Cannabinoids (+), Iron saturation 7.8%, Ferritin 32. Alpha 1 antitrypsin 183, Ceruloplasmin 40, AFP 4.6. Hep B DNA 8,440,000. Hep Be Ag positive. - Abdominal pain. Seems to be more cramping since she received cytotec/ methotrexate. - Anemia. HH stable No active gi bleeding. - Hypokalemia. Improved - Suspected Ectopic in cervix. S/P Cytotec. S/P Methotrexate, levels are trending down. 11/29/16 LFTs worsening, ?methotrexate. HH stable. 12/02/16 LFTs still elevated, tbil continues trending up, still with RUQ pain. starting entacavir, [facility] PLAN: - entecavir 0.5mg PO qd - monitor labs - consult case management for transfer to tertiary center - [facility] - Avoid hepatotoxic meds - Pt seen and examined by Dr. Otto and myself and this note is written on his behalf ([facility] Be) Physician Comments Seen and examined with BARREL BRANDER< worsening LFTs with acute HEP B. concerned about worsening LFTs. Will start entacivir 0.5mg daily. Monitor LFTs closely,and recommend evaluation for transfer to a tertiary center. Discussed with the patient. (Raul Otto MD) [facility] Dec 02, 2016 16:13 Raul Otto MD Dec 02, 2016 17:04
[2016-12-02] MEDS: SODIUM CHLORIDE 0.9% FLUSH 10 ML FLUSH IV FLUSH PRN (21:36)
[2016-12-03] VITALS (7 sets, daily range): BP systolic 93–127; BP diastolic 54–80; PULSE 57–83; RESP 15–17; TEMP 96.7–98.5; O2SAT 97–100
[2016-12-03] MEDS: ONDANSETRON HCL 4 MG/2 ML VIAL IVP PRN ×4 (00:44→22:30)
[2016-12-03] MEDS: SODIUM CHLOR 0.9% 1000 ML INJ 1,000 ML IV SCH ×2 (04:17→17:21)
[2016-12-03] MEDS: MORPHINE SULFATE 4 MG/ML INJ IV PRN ×3 (04:22→20:36)
[2016-12-03] MEDS: SODIUM CHLORIDE 0.9% FLUSH 10 ML FLUSH IV FLUSH PRN (04:22)
[2016-12-03] MEDS: ENTECAVIR 0.5 MG TAB PO SCH (06:55)
[2016-12-03 07:01] LABS: AUTOMATED NEUTROPHIL # 3.6 TH/MM3 (1.8-7.7); BASOPHIL # 0.1 TH/MM3 (0-0.2); BASOPHIL % 0.9 % (0.0-2.0); EOSINOPHIL # 0.2 TH/MM3 (0-0.4); EOSINOPHIL % 3.1 % (0.0-4.0); HEMATOCRIT 29.4 % (35.0-46.0); HEMO FLAGS DIFF FINAL; LYMPH % 21.2 % (9.0-44.0); LYMPHOCYTE # 1.5 TH/MM3 (1.0-4.8); MEAN CELL VOLUME 89.5 FL (80.0-100.0); MEAN CORPUSCULAR HEMOGLOBIN 29.7 PG (27.0-34.0); MEAN CORPUSCULAR HGB CONC 33.1 % (32.0-36.0); MONO % 24.3 % (0.0-8.0); NEUT % 50.5 % (16.0-70.0); PLATELET COUNT 218 TH/MM3 (150-450); RED BLOOD COUNT 3.29 MIL/MM3 (4.00-5.30); RED CELL DISTRIBUTION WIDTH 19.3 % (11.6-17.2); WHITE BLOOD COUNT 7.1 TH/MM3 (4.0-11.0)
[2016-12-03 07:15] LABS: ANION GAP 8 MEQ/L (5-15); AST (GOT) 764 U/L (15-37); BICARBONATE 26.7 MEQ/L (21.0-32.0); BLOOD UREA NITROGEN 3 MG/DL (7-18); CHLORIDE 101 MEQ/L (98-107); GLOMERULAR FILTRATION RATE 111 ML/MIN (>89); POTASSIUM 3.2 MEQ/L (3.5-5.1); SODIUM (NA) 136 MEQ/L (136-145)
[2016-12-03 07:16] LABS: ALT (GPT) 508 U/L (10-53)
[2016-12-03 07:18] LABS: ALKALINE PHOSPHATASE 132 U/L (45-117); TOTAL BILIRUBIN ADULT 18.1 MG/DL (0.2-1.0)
[2016-12-03] MEDS: SODIUM CHLORIDE 0.9% FLUSH 10 ML FLUSH IV FLUSH SCH ×2 (09:00→20:43)
[2016-12-03] MEDS: DOCUSATE SODIUM 50 MG/SENNA 8.6 MG TAB PO SCH ×2 (09:00→20:43)
--- NOTE | 2016-12-03 09:11 | PD.CONS ---
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 Quantitative hCGs dropped from 1200, 1100, 900, now 500 most recently been and is being redrawn today. Also transvaginal ultrasound being done today as well to compare to previous scans from a RENT CONTROL OFFICE MANAGER standpoint the there is not much else to be done as long as a quantitative hCG continued to drop appropriately and the ultrasound images continue to improve. Bowen Correa II, MD Dec 03, 2016 09:11
--- NOTE | 2016-12-03 09:28 | HHI.PR ---
Subjective History of Present Illness Patient feel weak and tired have jaundice GI input noted LFTs noted.. no Acute issue Discharge plan when ok with GI. Low Potassium will replace and monitor. getting pelvic ultrasound today d/w RN on duty. Review of Systems Constitutional Constitutional: Fatigue, Weakness Eyes Eyes Remarks yellow sclera. GI/Abdomen GI/Abdominal Exam: Abdominal Pain Integumentary Skin Remarks Yellow discoloration of skin. Vitals/Results Vital Signs Vital Signs Date Time Temp Pulse Resp B/P (MAP) Pulse Ox O2 Delivery O2 Flow Rate FiO2 12/03/16 08:00 97.7 66 16 93/54 (67) 97 12/03/16 04:25 98.1 12/03/16 04:00 77 17 119/75 (90) 97 12/03/16 00:00 98.5 78 17 127/73 (91) 98 12/02/16 20:00 97.4 70 18 125/70 (88) 98 12/02/16 17:36 96.8 12/02/16 16:00 68 15 114/74 (87) 96 12/02/16 12:57 96.8 78 19 126/65 (85) 96 CBC/BMP: 12/03/16 0545 12/03/16 0545 Lab Results Laboratory Tests Test 12/03/16 05:45 12/03/16 08:45 White Blood Count 7.1 TH/MM3 Red Blood Count 3.29 MIL/MM3 Hemoglobin 9.8 GM/DL Hematocrit 29.4 % Mean Corpuscular Volume 89.5 FL Mean Corpuscular Hemoglobin 29.7 PG Mean Corpuscular Hemoglobin Concent 33.1 % Red Cell Distribution Width 19.3 % Platelet Count 218 TH/MM3 Mean Platelet Volume 9.7 FL Neutrophils (%) (Auto) 50.5 % Lymphocytes (%) (Auto) 21.2 % Monocytes (%) (Auto) 24.3 % Eosinophils (%) (Auto) 3.1 % Basophils (%) (Auto) 0.9 % Neutrophils # (Auto) 3.6 TH/MM3 Lymphocytes # (Auto) 1.5 TH/MM3 Monocytes # (Auto) 1.7 TH/MM3 Eosinophils # (Auto) 0.2 TH/MM3 Basophils # (Auto) 0.1 TH/MM3 CBC Comment DIFF FINAL Differential Comment Blood Urea Nitrogen 3 MG/DL Creatinine 0.60 MG/DL Random Glucose 87 MG/DL Total Protein 5.6 GM/DL Albumin 2.2 GM/DL Calcium Level 7.9 MG/DL Alkaline Phosphatase 132 U/L Aspartate Amino Transf (AST/SGOT) 764 U/L Alanine Aminotransferase (ALT/SGPT) 508 U/L Total Bilirubin 18.1 MG/DL Sodium Level 136 MEQ/L Potassium Level 3.2 MEQ/L Chloride Level 101 MEQ/L Carbon Dioxide Level 26.7 MEQ/L Anion Gap 8 MEQ/L Estimat Glomerular Filtration Rate 111 ML/MIN Physical Exam General General Appearance: Well Developed, Well Nourished, No Acute Distress, Comfortable Eyes Eye Exam: Pupils Equal, Pupils Reactive, Extraocular Movement Intact Eye Remarks Yellow sclera. Ears & Nose Ears & Nose Exam: Nasal Mucosa [place] Throat Throat Exam: Oral Mucosa [place] & Moist, Oral Pharynx Normal Neck Neck Exam: Neck Supple, Trachea Midline Pulmonary Resp Exam: Clear Bilaterally, Breath Sounds Equal Cardiology CV Exam: Regular, Normal Sinus Rhythm, Good Perfusion Gastrointestinal/Abdomen GI Exam: Soft, Bowel Sounds Present GI Remarks mild right upper quadrant tenderness. Musculoskeletal MS Exam: Joints Intact Integumentary Skin Exam: Warm, Dry, Jaundice Skin Remarks yellow discoloration of skin. Extremeties Extremities Exam: No Edema Neurologic Neuro Exam: Alert, Awake, Oriented, Speech Clear, Moving All Extremities, No Focal Deficits Psychiatric Psych Exam: Appropriate Responses VTE Prophylaxis VTE Prophylaxis Device: SCDs Assessment/Plan Assessment/Plan Assessment/Plan Admission Diagnosis (1) Acute LFTs abnormal secondary to acute hepatitis B Infection. (2) Asthma (3) Hypertension (4) Coronary artery disease (5) Incomplete getting pelvic ultrasound (6) FEN/PX (7) Drug Abuse Urine tox screen positive for mirijuana. ( 8) Anemia. Plan: Mild Diffuse abdominal pain, high LFTs, and spontaneous . LFTs on admission: (11/18): 1179/961 Alk Phos: 263 Total bilirubin: 9.7 LFTs at last visit/missed ab dx (10/31): 418/711 Alk phos: 264 Total bilirubin: 1.3 As per record in 2012 LFT's were normal : Alk phos: 204 Total Bili: 0.4 LFTs trend down. PLAN - GI input noted. - f/u GI recs for imaging - UDS positive for Mirjuana - acetaminophen level noted - f/u hepatitis panel - NO TYLENOL - motrin PRN for pain - benadryl PRN for itching (2) Asthma ICD Codes: J45.909 - Unspecified asthma, uncomplicated Status: Chronic Plan: albuterol PRN (3) Hypertension ICD Codes: I10 - Essential (primary) hypertension Status: Chronic Plan: Controlled with labetalol TID during per patient - pt not currently taking - f/u BPs on morphine for abdominal pain / Cramp. Hypokalemia will replace and monitor. Check CBC with diff CMP in AM. Discharge plan when ok with GI. Discussed Condition with: Patient Prasanna Liriano MD Dec 03, 2016 09:28
[2016-12-03] MEDS ORDERED: POTASSIUM CHLORIDE 10 MEQ CONTROLLED RELEASE TAB PO ONE (10:30)
[2016-12-03 10:43] LABS: BETA HCG QUANT 359 MIU/ML (0-5)
[2016-12-03] MEDS: POTASSIUM CHLORIDE 10 MEQ CONTROLLED RELEASE TAB PO SCH (11:04)
--- NOTE | 2016-12-03 11:15 | RADRPT ---
EXAM DATE/TIME: 12/03/2016 08:50 [place] COMPARISON: US PELVIS (QUEST PREG/ECTOPIC) W/TRANSVAG, October 31, 2016, 13:46. US PELVIS (QUEST PREG/ECTOPIC) W/TRANSVAG, November 25, 2016, 10:58. INDICATIONS : For cervical ectopic; possible mass. LAB(S): Beta-hC MEDICAL HISTORY : Hypercholesterolemia. Chronic obstructive pulmonary disease. Hypertension. Hyperthyroidism. Ulcer. A sthma. Cervical dysplasia. SURGICAL HISTORY : section. Tonsillectomy. Tympanostomy tube. ENCOUNTER: Sequela ACUITY: 1 month PAIN SCORE: 7/10 LOCATION: Bilateral pelvis MEASUREMENTS: UTERUS: 10.0 x 5.8 x 5.0 cm ENDOMETRIAL STRIPE: 7 mm RIGHT OVARY: 2.1 x 1.9 x 1.8 cm LEFT OVARY: 2.6 x 2.0 x 1.9 cm FREE FLUID: Yes CROWN RUMP LENGTH: not seen = WKS DAYS FINDINGS: UTERUS: A complex predominantly solid mass remains evident in the lower uterine segment and cervix. It measur es 3.5 x 4.5 x 3.3 cm in size. There is increased vascularity surrounding the mass. There is no evide nce of a gestational sac or pole. RIGHT OVARY: Ovary contains no mass or significant cystic lesion. LEFT OVARY: Ovary contains no mass or significant cystic lesion. MISCELLANEOUS: Small amount of free fluid is identified in the pelvis. CONCLUSION: 1. Persistent complex mass in lower uterine segment. Considering a significant drop in beta hCG incom plete with retained products should be considered. 2. Small amount of fluid in the cul-de-sac. 3. Stable ovaries and adnexal regions. Next 1. Sudhir Juarez MD on December 03, 2016 at 11:05 Board Certified Radiologist. This report was verified electronically.
--- NOTE | 2016-12-03 13:59 | HHI.GIFU ---
Subjective Remarks Pt resting in bed, napping. C/o nausea. ([facility]) Objective Vitals I&O Vital Signs Date Time Temp Pulse Resp B/P (MAP) Pulse Ox O2 Delivery O2 Flow Rate FiO2 12/03/16 12:00 96.7 70 15 114/67 (83) 100 12/03/16 08:00 97.7 66 16 93/54 (67) 97 12/03/16 04:25 98.1 12/03/16 04:00 77 17 119/75 (90) 97 12/03/16 00:00 98.5 78 17 127/73 (91) 98 12/02/16 20:00 97.4 70 18 125/70 (88) 98 12/02/16 17:36 96.8 12/02/16 16:00 68 15 114/74 (87) 96 I/O 12/02/16 12/02/16 12/02/16 12/03/16 12/03/16 12/03/16 07:00 15:00 23:00 07:00 15:00 23:00 Intake Total 960 ml 1000 ml 2620 ml 1240 ml Output Total 150 ml Balance 960 ml 1000 ml 2620 ml 1090 ml Intake Oral 960 ml 1620 ml 240 ml IV Total 1000 ml 1000 ml 1000 ml Emesis 150 ml # Voids 7 10 4 # Bowel Movements 0 Laboratory Laboratory Tests Test 12/03/16 05:45 12/03/16 08:45 White Blood Count 7.1 Red Blood Count 3.29 Hemoglobin 9.8 Hematocrit 29.4 Mean Corpuscular Volume 89.5 Mean Corpuscular Hemoglobin 29.7 Mean Corpuscular Hemoglobin Concent 33.1 Red Cell Distribution Width 19.3 Platelet Count 218 Mean Platelet Volume 9.7 Neutrophils (%) (Auto) 50.5 Lymphocytes (%) (Auto) 21.2 Monocytes (%) (Auto) 24.3 Eosinophils (%) (Auto) 3.1 Basophils (%) (Auto) 0.9 Neutrophils # (Auto) 3.6 Lymphocytes # (Auto) 1.5 Monocytes # (Auto) 1.7 Eosinophils # (Auto) 0.2 Basophils # (Auto) 0.1 CBC Comment DIFF FINAL Differential Comment Blood Urea Nitrogen 3 Creatinine 0.60 Random Glucose 87 Total Protein 5.6 Albumin 2.2 Calcium Level 7.9 Alkaline Phosphatase 132 Aspartate Amino Transf (AST/SGOT) 764 Alanine Aminotransferase (ALT/SGPT) 508 Total Bilirubin 18.1 Sodium Level 136 Potassium Level 3.2 Chloride Level 101 Carbon Dioxide Level 26.7 Anion Gap 8 Estimat Glomerular Filtration Rate 111 Magnesium Level 1.7 Human Chorionic Gonadotropin, Quant 359 Imaging Last Impressions Pelvis Ultrasound 12/03/16 0000 Signed Impressions: Service Date/Time: Saturday, December 03, 2016 08:50 - CONCLUSION: 1. Persistent complex mass in lower uterine segment. Considering a significant drop in beta hCG incomplete with retained products should be considered. 2. Small amount of fluid in the cul-de-sac. 3. Stable ovaries and adnexal regions. Next 1. Sudhir Juarez MD Gall Bladder Ultrasound 11/18/16 1300 Signed Impressions: Service Date/Time: Friday, November 18, 2016 13:21 - CONCLUSION: 1. Enlarged echogenic liver consistent with the hepatic steatosis versus medical liver disease. 2. Gallbladder is contracted which accentuates the gallbladder wall. However, there is diffuse gallbladder wall thickening with no pericholecystic fluid, stones or sonographic Villegas sign. Gallbladder wall thickening is commonly seen in patient's with underlying liver disease. If there is significant continued clinical concern, a HIDA scan may be performed to evaluate for cystic duct patency. Jose Yanes MD Physical Exam HEENT: Normocephalic; atraumatic; + icterus CHEST: CTA CARDIAC: RRR ABDOMEN: Soft, nondistended, diffuse TTP; bowel sounds are present EXTREMITIES: No clubbing, cyanosis, or edema. SKIN: + jaundice. 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 ([facility] [employer]UB DIRECT[facility]) Assessment and Plan Plan ASSESSMENT: - Acute hepatitis B. Hepatitis B surface antigen (+), Hepatitis B Core IgM ab. GB US (11/18/16)----> Enlarged echogenic liver consistent with hepatic steatosis vs. medical liver disease. GB is contracted which accentuates the gallbladder wall. However, there is diffuse gallbladder wall thickening. However, there is diffuse gallbladder wall thickening with no pericholecystic fluid, stones, or sonographic Villegas sign. GB wall thickening is commonly seen in patient's with underlying liver disease. If there is continued clinical concern,a HIDA scan could be performed to evaluate patency of cystic duct. Denies ETOH use, illicit drug use, new medications other than labetolol (which she stopped 3 weeks ago). No herbal supplements. No new tattoo's, although her last tattoo was done during a tattoo constitution party at a friends house 10 years ago. (+) New sexual partner about 6 weeks ago. ? GB wall thickening related to acute hepatitis. Hepatitis panel (+) Acute hep b, Monoscreen negative, ABBY neg, AMA <20.0, ASMA neg, Acetaminophen < 2.0, Ethyl alcohol < 3, Cannabinoids (+), Iron saturation 7.8%, Ferritin 32. Alpha 1 antitrypsin 183, Ceruloplasmin 40, AFP 4.6. Hep B DNA 8,440,000. Hep Be Ag positive. - Abdominal pain. Seems to be more cramping since she received cytotec/ methotrexate. - Anemia. HH stable No active gi bleeding. - Hypokalemia. Improved - Suspected Ectopic in cervix. S/P Cytotec. S/P Methotrexate, levels are trending down. 11/29/16 LFTs worsening, ?methotrexate. HH stable. 12/02/16 LFTs still elevated, tbil continues trending up, still with RUQ pain. starting entacavir, tranfer to [facility] 12/03/16 modest decrease LFTs, started entecavir. RUQ pain. awaiting case mgmt consult PLAN: - cont entecavir - monitor labs - await case mgmt consult for poss transfer to tertiary center - [facility] - Pt seen and examined by Dr. Otto and myself and this note is written on his behalf ([facility]) Physician Comments Seen and examined with CLUB DIRECTOR, LFTS improving. Started on entacivir 0.5mg daily. Referral to tertiary center in progress. (Raul Otto MD) [facility] Dec 03, 2016 13:59 Raul Otto MD Dec 03, 2016 16:24
[2016-12-03] MEDS: POTASSIUM CHLOR 20 MEQ PREMIX 100 ML IV SCH ×2 (17:21→20:37)
[2016-12-04] VITALS: BP 119/73; PULSE 66; RESP 17; TEMP 97.8; O2SAT 98
[2016-12-04] MEDS: SODIUM CHLOR 0.9% 1000 ML INJ 1,000 ML IV SCH ×2 (01:27→12:10)
[2016-12-04] MEDS: MORPHINE SULFATE 4 MG/ML INJ IV PRN ×3 (03:20→23:24)
[2016-12-04 04:00] VITALS: BP 106/63; PULSE 60; RESP 17; TEMP 97.1; O2SAT 99
[2016-12-04] MEDS: ENTECAVIR 0.5 MG TAB PO SCH (05:59)
[2016-12-04] MEDS: ONDANSETRON HCL 4 MG/2 ML VIAL IVP PRN ×2 (06:04→12:08)
[2016-12-04 07:50] VITALS: BP 110/55; PULSE 59; RESP 20; TEMP 97.7; O2SAT 98
[2016-12-04] MEDS: DOCUSATE SODIUM 50 MG/SENNA 8.6 MG TAB PO SCH ×2 (09:00→20:18)
[2016-12-04] MEDS: SODIUM CHLORIDE 0.9% FLUSH 10 ML FLUSH IV FLUSH SCH ×2 (11:24→20:17)
[2016-12-04 11:50] VITALS: BP 123/78; PULSE 79; RESP 20; TEMP 97.4; O2SAT 99
[2016-12-04] MEDS: POTASSIUM CHLORIDE 10 MEQ CONTROLLED RELEASE TAB PO SCH (12:08)
--- NOTE | 2016-12-04 13:14 | HHI.GIFU ---
Subjective Remarks pt resting in bed. c/o continued nausea, zofran not sufficient. (Eri Be CENTRAL STATION OPERATOR) Objective Vitals I&O Vital Signs Date Time Temp Pulse Resp B/P (MAP) Pulse Ox O2 Delivery O2 Flow Rate FiO2 12/04/16 11:50 97.4 79 20 123/78 (93) 99 12/04/16 07:50 97.7 59 20 110/55 (73) 98 12/04/16 07:03 16 12/04/16 04:00 97.1 60 17 106/63 (77) 99 12/04/16 03:31 18 12/04/16 00:00 97.8 66 17 119/73 (88) 98 12/03/16 20:00 97.0 83 17 127/80 (96) 100 12/03/16 16:00 97.2 57 16 113/69 (84) 100 I/O 12/03/16 12/03/16 12/03/16 12/04/16 12/04/16 12/04/16 07:00 15:00 23:00 07:00 15:00 23:00 Intake Total 1240 ml 1320 ml 480 ml Output Total 150 ml Balance 1090 ml 1320 ml 480 ml Intake Oral 240 ml 1320 ml 480 ml IV Total 1000 ml Emesis 150 ml # Voids 4 7 2 # Bowel Movements 0 Imaging Last Impressions Pelvis Ultrasound 12/03/16 0000 Signed Impressions: Service Date/Time: Saturday, December 03, 2016 08:50 - CONCLUSION: 1. Persistent complex mass in lower uterine segment. Considering a significant drop in beta hCG incomplete with retained products should be considered. 2. Small amount of fluid in the cul-de-sac. 3. Stable ovaries and adnexal regions. Next 1. Sudhir Juarez MD Gall Bladder Ultrasound 11/18/16 1300 Signed Impressions: Service Date/Time: Friday, November 18, 2016 13:21 - CONCLUSION: 1. Enlarged echogenic liver consistent with the hepatic steatosis versus medical liver disease. 2. Gallbladder is contracted which accentuates the gallbladder wall. However, there is diffuse gallbladder wall thickening with no pericholecystic fluid, stones or sonographic Villegas sign. Gallbladder wall thickening is commonly seen in patient's with underlying liver disease. If there is significant continued clinical concern, a HIDA scan may be performed to evaluate for cystic duct patency. Jose Yanes MD Physical Exam HEENT: Normocephalic; atraumatic; + icterus CHEST: CTA CARDIAC: RRR ABDOMEN: Soft, nondistended, diffuse TTP; bowel sounds are present EXTREMITIES: No clubbing, cyanosis, or edema. SKIN: + jaundice. 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 (Eri Be CENTRAL STATION OPERATOR) Assessment and Plan Plan ASSESSMENT: - Acute hepatitis B. Hepatitis B surface antigen (+), Hepatitis B Core IgM ab. GB US (11/18/16)----> Enlarged echogenic liver consistent with hepatic steatosis vs. medical liver disease. GB is contracted which accentuates the gallbladder wall. However, there is diffuse gallbladder wall thickening. However, there is diffuse gallbladder wall thickening with no pericholecystic fluid, stones, or sonographic Villegas sign. GB wall thickening is commonly seen in patient's with underlying liver disease. If there is continued clinical concern,a HIDA scan could be performed to evaluate patency of cystic duct. Denies ETOH use, illicit drug use, new medications other than labetolol (which she stopped 3 weeks ago). No herbal supplements. No new tattoo's, although her last tattoo was done during a tattoo constitution party at a [employer] house 10 years ago. (+) New sexual partner about 6 weeks ago. ? GB wall thickening related to acute hepatitis. Hepatitis panel (+) Acute hep b, Monoscreen negative, ABBY neg, AMA <20.0, ASMA neg, Acetaminophen < 2.0, Ethyl alcohol < 3, Cannabinoids (+), Iron saturation 7.8%, Ferritin 32. Alpha 1 antitrypsin 183, Ceruloplasmin 40, AFP 4.6. Hep B DNA 8,440,000. Hep Be Ag positive. - Abdominal pain. Seems to be more cramping since she received cytotec/ methotrexate. - Anemia. HH stable No active gi bleeding. - Hypokalemia. Improved - Suspected Ectopic in cervix. S/P Cytotec. S/P Methotrexate, levels are trending down. 11/29/16 LFTs worsening, ?methotrexate. HH stable. 12/02/16 LFTs still elevated, tbil continues trending up, still with RUQ pain. starting entacavir, [facility]fer [facility] 12/03/16 modest decrease LFTs, started entecavir. RUQ pain. awaiting case mgmt consult 12/04/16 rck LFTs for downward trend, if continued will hold on transfer and continue entecavir. will try promethazine for persistent nausea PLAN: - promethazine 12.5mg q6h PRN nausesa - cont entecavir - stat rck LFTs - if LFTs continuing downward trend, will hold on transfer - SHAYLA - Pt seen and examined by Dr. Otto and myself and this note is written on his behalf (Eri Be) Physician Comments Seen and examined with COLETTE, LFTs improving on entacivir. Transfer [facility] on hold for now. (Raul Otto MD) Eri Be Dec 04, 2016 13:14 Raul Otto MD Dec 04, 2016 16:14
[2016-12-04 14:21] LABS: INDIRECT BILIRUBIN 3.9 MG/DL (0.0-0.8); TOTAL BILIRUBIN ADULT 18.2 MG/DL (0.2-1.0)
[2016-12-04] MEDS ORDERED: PILL SPLITTER OTHER PRN (15:00)
[2016-12-04 15:50] VITALS: BP 113/63; PULSE 64; RESP 20; TEMP 98.1; O2SAT 99
[2016-12-04] MEDS: PROMETHAZINE HCL 25 MG TAB PO PRN (19:18)
[2016-12-04 20:00] VITALS: BP 116/71; PULSE 67; RESP 17; TEMP 99.6; O2SAT 99
[2016-12-05] VITALS (8 sets, daily range): BP systolic 100–131; BP diastolic 56–76; PULSE 56–95; RESP 16–20; TEMP 96–98.8; O2SAT 97–99
[2016-12-05] MEDS: SODIUM CHLOR 0.9% 1000 ML INJ 1,000 ML IV SCH ×3 (00:28→18:16)
[2016-12-05] MEDS: PROMETHAZINE HCL 25 MG TAB PO PRN ×3 (03:28→16:49)
[2016-12-05] MEDS: ENTECAVIR 0.5 MG TAB PO SCH (05:02)
--- NOTE | 2016-12-05 08:50 | HHI.PR ---
Subjective History of Present Illness Patient seen on 12/04/16. feel weak and tired have jaundice GI input noted LFTs noted.. no Acute issue Discharge plan when ok with GI. Low Potassium will replace and monitor.s/p pelvic ultrasound noted. Review of Systems Constitutional Constitutional: Fatigue, Weakness Eyes Eyes Remarks yellow sclera. GI/Abdomen GI/Abdominal Exam: Abdominal Pain Integumentary Skin Remarks Yellow discoloration of skin. Vitals/Results Vital Signs Vital Signs Date Time Temp Pulse Resp B/P (MAP) Pulse Ox O2 Delivery O2 Flow Rate FiO2 12/05/16 08:06 98.0 62 16 100/62 (75) 97 12/05/16 04:00 98.4 59 17 105/56 (72) 98 12/05/16 00:00 98.1 67 17 104/63 (77) 97 12/04/16 20:00 99.6 67 17 116/71 (86) 99 12/04/16 15:50 98.1 64 20 113/63 (80) 99 12/04/16 11:50 97.4 79 20 123/78 (93) 99 CBC/BMP: 12/03/16 0545 12/03/16 0545 Lab Results Laboratory Tests Test 12/04/16 12:29 Total Bilirubin 18.2 MG/DL Direct Bilirubin 14.3 MG/DL Indirect Bilirubin 3.9 MG/DL Aspartate Amino Transf (AST/SGOT) 579 U/L Alanine Aminotransferase (ALT/SGPT) 430 U/L Alkaline Phosphatase 136 U/L Total Protein 5.9 GM/DL Albumin 2.3 GM/DL Physical Exam General General Appearance: Well Developed, Well Nourished, No Acute Distress, Comfortable Eyes Eye Exam: Pupils Equal, Pupils Reactive, Extraocular Movement Intact Eye Remarks Yellow sclera. Ears & Nose Ears & Nose Exam: Nasal Mucosa [place] Throat Throat Exam: Oral Mucosa [place] & Moist, Oral Pharynx Normal Neck Neck Exam: Neck Supple, Trachea Midline Pulmonary Resp Exam: Clear Bilaterally, Breath Sounds Equal Cardiology CV Exam: Regular, Normal Sinus Rhythm, Good Perfusion Gastrointestinal/Abdomen GI Exam: Soft, Bowel Sounds Present GI Remarks mild right upper quadrant tenderness. Musculoskeletal MS Exam: Joints Intact Integumentary Skin Exam: Warm, Dry, Jaundice Skin Remarks yellow discoloration of skin. Extremeties Extremities Exam: No Edema Neurologic Neuro Exam: Alert, Awake, Oriented, Speech Clear, Moving All Extremities, No Focal Deficits Psychiatric Psych Exam: Appropriate Responses VTE Prophylaxis VTE Prophylaxis Device: SCDs Assessment/Plan Assessment/Plan Assessment/Plan Admission Diagnosis (1) Acute LFTs abnormal secondary to acute hepatitis B Infection. (2) Asthma (3) Hypertension (4) Coronary artery disease (5) Incomplete getting pelvic ultrasound (6) FEN/PX (7) Drug Abuse Urine tox screen positive for mirijuana. ( 8) Anemia. Plan: Mild Diffuse abdominal pain, high LFTs, and spontaneous . LFTs on admission: (11/18): 1179/961 Alk Phos: 263 Total bilirubin: 9.7 LFTs at last visit/missed ab dx (10/31): 418/711 Alk phos: 264 Total bilirubin: 1.3 As per record in 2012 LFT's were normal : Alk phos: 204 Total Bili: 0.4 LFTs trend down. PLAN - GI input noted. - f/u GI recs for imaging - UDS positive for Mirjuana - acetaminophen level noted - f/u hepatitis panel - NO TYLENOL - motrin PRN for pain - benadryl PRN for itching (2) Asthma ICD Codes: J45.909 - Unspecified asthma, uncomplicated Status: Chronic Plan: albuterol PRN (3) Hypertension ICD Codes: I10 - Essential (primary) hypertension Status: Chronic Plan: Controlled with labetalol TID during per patient - pt not currently taking - f/u BPs on morphine for abdominal pain / Cramp. Hypokalemia will replace and monitor. Check CBC with diff CMP in AM. Discharge plan when ok with GI. Discussed Condition with: Patient Prasanna Liriano MD Dec 05, 2016 08:50
[2016-12-05] MEDS: DOCUSATE SODIUM 50 MG/SENNA 8.6 MG TAB PO SCH ×2 (09:00→20:37)
[2016-12-05] MEDS: SODIUM CHLORIDE 0.9% FLUSH 10 ML FLUSH IV FLUSH SCH ×2 (09:00→20:36)
[2016-12-05] MEDS: POTASSIUM CHLORIDE 10 MEQ CONTROLLED RELEASE TAB PO SCH (09:23)
--- NOTE | 2016-12-05 13:51 | HHI.GIFU ---
Subjective Remarks Pt feeling less nauseous after phenergan. Says last night she was hungry for the first time and was quite limited on options, asking for diet alteration. Still with RUQ TTP (Eri Be) Objective Vitals I&O Vital Signs Date Time Temp Pulse Resp B/P (MAP) Pulse Ox O2 Delivery O2 Flow Rate FiO2 12/05/16 12:00 97.8 56 16 102/56 (71) 98 12/05/16 08:06 98.0 62 16 100/62 (75) 97 12/05/16 04:00 98.4 59 17 105/56 (72) 98 12/05/16 00:00 98.1 67 17 104/63 (77) 97 12/04/16 20:00 99.6 67 17 116/71 (86) 99 12/04/16 15:50 98.1 64 20 113/63 (80) 99 I/O 12/04/16 12/04/16 12/04/16 12/05/16 12/05/16 12/05/16 06:59 14:59 22:59 06:59 14:59 22:59 Intake Total 480 ml 841 ml 960 ml 250 ml 1000 ml Balance 480 ml 841 ml 960 ml 250 ml 1000 ml Intake Oral 480 ml 960 ml 250 ml IV Total 841 ml 1000 ml # Voids 2 4 2 # Bowel Movements 0 Physical Exam HEENT: Normocephalic; atraumatic; + icterus CHEST: CTA CARDIAC: RRR ABDOMEN: Soft, nondistended, diffuse TTP; bowel sounds are present EXTREMITIES: No clubbing, cyanosis, or edema. SKIN: + jaundice. 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 (Eri Be) Assessment and Plan Plan ASSESSMENT: - Acute hepatitis B. Hepatitis B surface antigen (+), Hepatitis B Core IgM ab. GB US (11/18/16)----> Enlarged echogenic liver consistent with hepatic steatosis vs. medical liver disease. GB is contracted which accentuates the gallbladder wall. However, there is diffuse gallbladder wall thickening. However, there is diffuse gallbladder wall thickening with no pericholecystic fluid, stones, or sonographic Villegas sign. GB wall thickening is commonly seen in patient's with underlying liver disease. If there is continued clinical concern,a HIDA scan could be performed to evaluate patency of cystic duct. Denies ETOH use, illicit drug use, new medications other than labetolol (which she stopped 3 weeks ago). No herbal supplements. No new tattoo's, although her last tattoo was done during a tattoo republican at a friends house 10 years ago. (+) New sexual partner about 6 weeks ago. ? GB wall thickening related to acute hepatitis. Hepatitis panel (+) Acute hep b, Monoscreen negative, ABBY neg, AMA <20.0, ASMA neg, Acetaminophen < 2.0, Ethyl alcohol < 3, Cannabinoids (+), Iron saturation 7.8%, Ferritin 32. Alpha 1 antitrypsin 183, Ceruloplasmin 40, AFP 4.6. Hep B DNA 8,440,000. Hep Be Ag positive. - Abdominal pain. Seems to be more cramping since she received cytotec/ methotrexate. - Anemia. HH stable No active gi bleeding. - Hypokalemia. Improved - Suspected Ectopic in cervix. S/P Cytotec. S/P Methotrexate, levels are trending down. 11/29/16 LFTs worsening, ?methotrexate. HH stable. 12/02/16 LFTs still elevated, tbil continues trending up, still with RUQ pain. starting entacavir, tranfer to [facility] 12/03/16 modest decrease LFTs, started entecavir. RUQ pain. awaiting case mgmt consult 12/04/16 rck LFTs for downward trend, if continued will hold on transfer and continue entecavir. will try promethazine for persistent nausea 12/05/16 good response with phenergan, pt less nauseous and asking for more diet choices. still wtih RUQ pain. CMP tomorrow. PLAN: - regular diet - CMP in am - cont phenergan - cont entecavir - transfer on hold - Pt seen and examined by Dr. Otto and myself and this note is written on his behalf (Eri Be) Physician Comments Clinically improving. Monitor LFTs. Continue entacivir. If lfts continue to improve can dc home in the next 1 to 2 days on entacivir with gi fu (Raul Otto MD) Eri Be Dec 05, 2016 13:51 Raul Otto MD Dec 05, 2016 15:06
[2016-12-05] MEDS: MORPHINE SULFATE 4 MG/ML INJ IV PRN ×2 (13:53→20:37)
[2016-12-05] MEDS: ONDANSETRON HCL 4 MG/2 ML VIAL IVP PRN (23:58)
[2016-12-06] MEDS: PROMETHAZINE HCL 25 MG TAB PO PRN ×4 (00:05→21:00)
[2016-12-06] MEDS: MORPHINE SULFATE 4 MG/ML INJ IV PRN ×4 (04:09→23:31)
[2016-12-06] MEDS: SODIUM CHLOR 0.9% 1000 ML INJ 1,000 ML IV SCH ×3 (04:09→21:00)
[2016-12-06 04:32] VITALS: BP 116/63; PULSE 63; RESP 16; TEMP 98; O2SAT 92
[2016-12-06] MEDS: ENTECAVIR 0.5 MG TAB PO SCH (06:37)
[2016-12-06 08:00] VITALS: BP 121/59; PULSE 64; RESP 18; TEMP 97.8; O2SAT 96
[2016-12-06 08:12] LABS: AUTOMATED NEUTROPHIL # 2.1 TH/MM3 (1.8-7.7); BASOPHIL % 0.7 % (0.0-2.0); EOSINOPHIL # 0.2 TH/MM3 (0-0.4); EOSINOPHIL % 4.5 % (0.0-4.0); HEMATOCRIT 28.2 % (35.0-46.0); HEMO FLAGS DIFF FINAL; LYMPH % 32.3 % (9.0-44.0); LYMPHOCYTE # 1.7 TH/MM3 (1.0-4.8); MEAN CELL VOLUME 88.8 FL (80.0-100.0); MEAN CORPUSCULAR HEMOGLOBIN 29.4 PG (27.0-34.0); MEAN CORPUSCULAR HGB CONC 33.1 % (32.0-36.0); MONO % 23.2 % (0.0-8.0); NEUT % 39.3 % (16.0-70.0); PLATELET COUNT 244 TH/MM3 (150-450); RED BLOOD COUNT 3.18 MIL/MM3 (4.00-5.30); WHITE BLOOD COUNT 5.3 TH/MM3 (4.0-11.0)
[2016-12-06 08:47] LABS: ALT (GPT) 301 U/L (10-53); ANION GAP 7 MEQ/L (5-15); AST (GOT) 405 U/L (15-37); BICARBONATE 25.2 MEQ/L (21.0-32.0); BLOOD UREA NITROGEN 3 MG/DL (7-18); CHLORIDE 105 MEQ/L (98-107); GLOMERULAR FILTRATION RATE 115 ML/MIN (>89); POTASSIUM 3.6 MEQ/L (3.5-5.1); SODIUM (NA) 137 MEQ/L (136-145)
[2016-12-06] MEDS: DOCUSATE SODIUM 50 MG/SENNA 8.6 MG TAB PO SCH ×2 (09:00→21:00)
[2016-12-06] MEDS: SODIUM CHLORIDE 0.9% FLUSH 10 ML FLUSH IV FLUSH SCH ×2 (09:00→21:00)
[2016-12-06 09:01] LABS: ALKALINE PHOSPHATASE 114 U/L (45-117); TOTAL BILIRUBIN ADULT 15.5 MG/DL (0.2-1.0)
[2016-12-06] MEDS: POTASSIUM CHLORIDE 10 MEQ CONTROLLED RELEASE TAB PO SCH (09:45)
[2016-12-06 12:00] VITALS: BP 102/57; PULSE 102; RESP 18; TEMP 97.6; O2SAT 96
[2016-12-06 16:00] VITALS: BP 103/64; PULSE 67; RESP 16; TEMP 98.1; O2SAT 98
--- NOTE | 2016-12-06 16:05 | HHI.GIFU ---
Subjective Remarks Pt resting in bed, napping. Pain improving. N/V much improved with phenergan. tolerating regular diet. (Eri Be) Objective Vitals I&O Vital Signs Date Time Temp Pulse Resp B/P (MAP) Pulse Ox O2 Delivery O2 Flow Rate FiO2 12/06/16 12:00 97.6 102 18 102/57 (72) 96 12/06/16 08:00 97.8 64 18 121/59 (79) 96 12/06/16 04:32 98.0 63 16 116/63 (80) 92 12/06/16 04:14 16 12/05/16 23:49 98.2 73 16 115/57 (76) 98 12/05/16 20:28 98.8 95 16 131/76 (94) 97 12/05/16 17:50 98.0 91 20 118/75 (89) 99 I/O 12/05/16 12/05/16 12/05/16 12/06/16 12/06/16 12/06/16 07:00 15:00 23:00 07:00 15:00 23:00 Intake Total 250 ml 1000 ml 2080 ml 0 ml Balance 250 ml 1000 ml 2080 ml 0 ml Intake Oral 250 ml 1080 ml IV Total 1000 ml 1000 ml 0 ml # Voids 2 6 # Bowel Movements 0 Laboratory Laboratory Tests Test 12/06/16 07:13 White Blood Count 5.3 Red Blood Count 3.18 Hemoglobin 9.3 Hematocrit 28.2 Mean Corpuscular Volume 88.8 Mean Corpuscular Hemoglobin 29.4 Mean Corpuscular Hemoglobin Concent 33.1 Red Cell Distribution Width 19.0 Platelet Count 244 Mean Platelet Volume 9.3 Neutrophils (%) (Auto) 39.3 Lymphocytes (%) (Auto) 32.3 Monocytes (%) (Auto) 23.2 Eosinophils (%) (Auto) 4.5 Basophils (%) (Auto) 0.7 Neutrophils # (Auto) 2.1 Lymphocytes # (Auto) 1.7 Monocytes # (Auto) 1.2 Eosinophils # (Auto) 0.2 Basophils # (Auto) 0.0 CBC Comment DIFF FINAL Differential Comment Blood Urea Nitrogen 3 Creatinine 0.58 Random Glucose 86 Total Protein 5.7 Albumin 2.1 Calcium Level 8.3 Alkaline Phosphatase 114 Aspartate Amino Transf (AST/SGOT) 405 Alanine Aminotransferase (ALT/SGPT) 301 Total Bilirubin 15.5 Sodium Level 137 Potassium Level 3.6 Chloride Level 105 Carbon Dioxide Level 25.2 Anion Gap 7 Estimat Glomerular Filtration Rate 115 Physical Exam HEENT: Normocephalic; atraumatic; + icterus CHEST: CTA CARDIAC: RRR ABDOMEN: Soft, nondistended, diffuse TTP; bowel sounds are present EXTREMITIES: No clubbing, cyanosis, or edema. SKIN: + jaundice. 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 (Eri Be EVENT STAFF MEMBER) Assessment and Plan Plan ASSESSMENT: - Acute hepatitis B. Hepatitis B surface antigen (+), Hepatitis B Core IgM ab. GB US (11/18/16)----> Enlarged echogenic liver consistent with hepatic steatosis vs. medical liver disease. GB is contracted which accentuates the gallbladder wall. However, there is diffuse gallbladder wall thickening. However, there is diffuse gallbladder wall thickening with no pericholecystic fluid, stones, or sonographic Villegas sign. GB wall thickening is commonly seen in patient's with underlying liver disease. If there is continued clinical concern,a HIDA scan could be performed to evaluate patency of cystic duct. Denies ETOH use, illicit drug use, new medications other than labetolol (which she stopped 3 weeks ago). No herbal supplements. No new tattoo's, although her last tattoo was done during a tattoo green party at a [employer] house 10 years ago. (+) New sexual partner about 6 weeks ago. ? GB wall thickening related to acute hepatitis. Hepatitis panel (+) Acute hep b, Monoscreen negative, ABBY neg, AMA <20.0, ASMA neg, Acetaminophen < 2.0, Ethyl alcohol < 3, Cannabinoids (+), Iron saturation 7.8%, Ferritin 32. Alpha 1 antitrypsin 183, Ceruloplasmin 40, AFP 4.6. Hep B DNA 8,440,000. Hep Be Ag positive. - Abdominal pain. Seems to be more cramping since she received cytotec/ methotrexate. - Anemia. HH stable No active gi bleeding. - Hypokalemia. Improved - Suspected Ectopic in cervix. S/P Cytotec. S/P Methotrexate, levels are trending down. 11/29/16 LFTs worsening, ?methotrexate. HH stable. 12/02/16 LFTs still elevated, tbil continues trending up, still with RUQ pain. starting entacavir, tranfer to [facility] 12/03/16 modest decrease LFTs, started entecavir. RUQ pain. awaiting case mgmt consult 12/04/16 rck LFTs for downward trend, if continued will hold on transfer and continue entecavir. will try promethazine for persistent nausea 12/05/16 good response with phenergan, pt less nauseous and asking for more diet choices. still wtih RUQ pain. CMP tomorrow. 12/06/16 tolerating regular diet, n/v better wiht phenergan, pain somewhat improved. LFTs trending down including Tbil PLAN: - regular diet - phenergan PRN nausea - cont entecavir 6 months - okay for d/c from GI standpoint on entecavir - f/u with GI in 2 weeks - rck LFTs in 3-5 days - Pt seen and examined by Dr. Otto and myself and this note is written on his behalf (Eri Be) Physician Comments Doing better. Dc home on entacivir with gi fu. (Raul Otto MD) Eri Be Dec 06, 2016 16:05 Raul Otto MD Dec 07, 2016 15:36
[2016-12-06 20:00] VITALS: BP 119/62; PULSE 76; RESP 16; TEMP 98.2; O2SAT 98
[2016-12-07] VITALS: BP 112/61; PULSE 65; RESP 16; TEMP 98.2; O2SAT 99
[2016-12-07] MEDS: PROMETHAZINE HCL 25 MG TAB PO PRN ×4 (03:23→21:24)
[2016-12-07 04:00] VITALS: BP 114/61; PULSE 67; RESP 18; TEMP 97.9; O2SAT 97
[2016-12-07] MEDS: MORPHINE SULFATE 4 MG/ML INJ IV PRN ×3 (06:33→18:58)
[2016-12-07] MEDS: ENTECAVIR 0.5 MG TAB PO SCH (06:33)
[2016-12-07] MEDS: SODIUM CHLOR 0.9% 1000 ML INJ 1,000 ML IV SCH ×3 (06:35→12:40)
[2016-12-07 08:08] VITALS: BP 118/57; PULSE 59; RESP 16; TEMP 97.9; O2SAT 98
--- NOTE | 2016-12-07 08:31 | HHI.PR ---
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 No ultrasound within the last 48 hours but last sonogram was more consistent with incomplete/missed ab rather than cervical ectopic. As long as beta hcg continues its decline only observation will be needed. Consider either second dose of methotrexate vs misoprostol vs D&C if beta hcg's plateau. Buffy Stuart MD Dec 07, 2016 08:31
[2016-12-07] MEDS: DOCUSATE SODIUM 50 MG/SENNA 8.6 MG TAB PO SCH ×2 (09:00→21:24)
[2016-12-07] MEDS: POTASSIUM CHLORIDE 10 MEQ CONTROLLED RELEASE TAB PO SCH (09:23)
[2016-12-07] MEDS: SODIUM CHLORIDE 0.9% FLUSH 10 ML FLUSH IV FLUSH SCH ×2 (09:26→21:00)
--- NOTE | 2016-12-07 10:43 | HHI.PR ---
Subjective History of Present Illness Patient seen on 12/06/16 feel weak and tired have jaundice GI input noted LFTs noted.. Low Potassium resolved. Review of Systems Constitutional Constitutional: Fatigue, Weakness Eyes Eyes Remarks yellow sclera. GI/Abdomen GI/Abdominal Exam: Abdominal Pain Integumentary Skin Remarks Yellow discoloration of skin. Vitals/Results Vital Signs Vital Signs Date Time Temp Pulse Resp B/P (MAP) Pulse Ox O2 Delivery O2 Flow Rate FiO2 12/07/16 04:00 97.9 67 18 114/61 (78) 97 12/07/16 00:00 98.2 65 16 112/61 (78) 99 12/06/16 22:00 18 12/06/16 20:00 98.2 76 16 119/62 (81) 98 12/06/16 16:00 98.1 67 16 103/64 (77) 98 12/06/16 12:00 97.6 102 18 102/57 (72) 96 CBC/BMP: 12/06/16 0713 12/06/16 0713 Physical Exam General General Appearance: Well Developed, Well Nourished, No Acute Distress, Comfortable Eyes Eye Exam: Pupils Equal, Pupils Reactive, Extraocular Movement Intact Eye Remarks Yellow sclera. Ears & Nose Ears & Nose Exam: Nasal Mucosa [place] Throat Throat Exam: Oral Mucosa [place] & Moist, Oral Pharynx Normal Neck Neck Exam: Neck Supple, Trachea Midline Pulmonary Resp Exam: Clear Bilaterally, Breath Sounds Equal Cardiology CV Exam: Regular, Normal Sinus Rhythm, Good Perfusion Gastrointestinal/Abdomen GI Exam: Soft, Bowel Sounds Present GI Remarks mild right upper quadrant tenderness. Musculoskeletal MS Exam: Joints Intact Integumentary Skin Exam: Warm, Dry, Jaundice Skin Remarks yellow discoloration of skin. Extremeties Extremities Exam: No Edema Neurologic Neuro Exam: Alert, Awake, Oriented, Speech Clear, Moving All Extremities, No Focal Deficits Psychiatric Psych Exam: Appropriate Responses VTE Prophylaxis VTE Prophylaxis Device: SCDs Assessment/Plan Assessment/Plan Assessment/Plan Admission Diagnosis (1) Acute LFTs abnormal secondary to acute hepatitis B Infection. (2) Asthma (3) Hypertension (4) Coronary artery disease (5) Incomplete getting pelvic ultrasound (6) FEN/PX (7) Drug Abuse Urine tox screen positive for mirijuana. ( 8) Anemia. Plan: Mild Diffuse abdominal pain, high LFTs, and spontaneous . LFTs on admission: (11/18): 1179/961 Alk Phos: 263 Total bilirubin: 9.7 LFTs at last visit/missed ab dx (10/31): 418/711 Alk phos: 264 Total bilirubin: 1.3 As per record in 2012 LFT's were normal : Alk phos: 204 Total Bili: 0.4 LFTs trend down. PLAN - GI input noted. - f/u GI recs for imaging - UDS positive for Mirjuana - acetaminophen level noted - f/u hepatitis panel - NO TYLENOL - motrin PRN for pain - benadryl PRN for itching (2) Asthma ICD Codes: J45.909 - Unspecified asthma, uncomplicated Status: Chronic Plan: albuterol PRN (3) Hypertension ICD Codes: I10 - Essential (primary) hypertension Status: Chronic Plan: Controlled with labetalol TID during per patient - pt not currently taking - f/u BPs on morphine for abdominal pain / Cramp. Hypokalemia will replace and monitor. Check CBC with diff CMP in AM. Discharge plan when ok with GI. Prasanna Liriano MD Dec 07, 2016 10:43
--- NOTE | 2016-12-07 10:43 | HHI.PR ---
Subjective History of Present Illness Patient feel weak and tired have jaundice GI input noted LFTs noted.. Review of Systems Constitutional Constitutional: Fatigue, Weakness Eyes Eyes Remarks yellow sclera. GI/Abdomen GI/Abdominal Exam: Abdominal Pain Integumentary Skin Remarks Yellow discoloration of skin. Vitals/Results Vital Signs Vital Signs Date Time Temp Pulse Resp B/P (MAP) Pulse Ox O2 Delivery O2 Flow Rate FiO2 12/07/16 04:00 97.9 67 18 114/61 (78) 97 12/07/16 00:00 98.2 65 16 112/61 (78) 99 12/06/16 22:00 18 12/06/16 20:00 98.2 76 16 119/62 (81) 98 12/06/16 16:00 98.1 67 16 103/64 (77) 98 12/06/16 12:00 97.6 102 18 102/57 (72) 96 CBC/BMP: 12/06/16 0713 12/06/16 0713 Physical Exam General General Appearance: Well Developed, Well Nourished, No Acute Distress, Comfortable Eyes Eye Exam: Pupils Equal, Pupils Reactive, Extraocular Movement Intact Eye Remarks Yellow sclera. Ears & Nose Ears & Nose Exam: Nasal Mucosa [place] Throat Throat Exam: Oral Mucosa [place] & Moist, Oral Pharynx Normal Neck Neck Exam: Neck Supple, Trachea Midline Pulmonary Resp Exam: Clear Bilaterally, Breath Sounds Equal Cardiology CV Exam: Regular, Normal Sinus Rhythm, Good Perfusion Gastrointestinal/Abdomen GI Exam: Soft, Bowel Sounds Present GI Remarks mild right upper quadrant tenderness. Musculoskeletal MS Exam: Joints Intact Integumentary Skin Exam: Warm, Dry, Jaundice Skin Remarks yellow discoloration of skin. Extremeties Extremities Exam: No Edema Neurologic Neuro Exam: Alert, Awake, Oriented, Speech Clear, Moving All Extremities, No Focal Deficits Psychiatric Psych Exam: Appropriate Responses VTE Prophylaxis VTE Prophylaxis Device: SCDs Assessment/Plan Assessment/Plan Assessment/Plan Admission Diagnosis (1) Acute LFTs abnormal secondary to acute hepatitis B Infection. (2) Asthma (3) Hypertension (4) Coronary artery disease (5) Incomplete getting pelvic ultrasound (6) FEN/PX (7) Drug Abuse Urine tox screen positive for mirijuana. ( 8) Anemia. Plan: Mild Diffuse abdominal pain, high LFTs, and spontaneous . LFTs on admission: (11/18): 1179/961 Alk Phos: 263 Total bilirubin: 9.7 LFTs at last visit/missed ab dx (10/31): 418/711 Alk phos: 264 Total bilirubin: 1.3 As per record in 2012 LFT's were normal : Alk phos: 204 Total Bili: 0.4 LFTs trend down. PLAN - GI input noted. - f/u GI recs for imaging - UDS positive for Mirjuana - acetaminophen level noted - f/u hepatitis panel - NO TYLENOL - motrin PRN for pain - benadryl PRN for itching (2) Asthma ICD Codes: J45.909 - Unspecified asthma, uncomplicated Status: Chronic Plan: albuterol PRN (3) Hypertension ICD Codes: I10 - Essential (primary) hypertension Status: Chronic Plan: Controlled with labetalol TID during per patient - pt not currently taking - f/u BPs on morphine for abdominal pain / Cramp. Hypokalemia will replace and monitor. Check CBC with diff CMP in AM. Discharge plan when ok with GI. Discussed Condition with: Patient Prasanna Liriano MD Dec 07, 2016 10:43
[2016-12-07 12:08] VITALS: BP 104/61; PULSE 75; RESP 16; TEMP 97.6; O2SAT 98
[2016-12-07 16:08] VITALS: BP 110/60; PULSE 71; RESP 16; TEMP 98.3; O2SAT 98
[2016-12-07 20:00] VITALS: BP 133/68; PULSE 77; RESP 18; TEMP 98.1; O2SAT 98
[2016-12-08] VITALS: BP 124/76; PULSE 72; RESP 18; TEMP 98.8; O2SAT 97
[2016-12-08] MEDS: SODIUM CHLOR 0.9% 1000 ML INJ 1,000 ML IV SCH ×2 (00:24→11:14)
[2016-12-08] MEDS: MORPHINE SULFATE 4 MG/ML INJ IV PRN ×3 (01:10→13:53)
[2016-12-08] MEDS: PROMETHAZINE HCL 25 MG TAB PO PRN ×2 (03:37→09:43)
[2016-12-08 04:00] VITALS: BP 113/64; PULSE 70; RESP 18; TEMP 98.7; O2SAT 96
[2016-12-08] MEDS: ENTECAVIR 0.5 MG TAB PO SCH (06:56)
[2016-12-08 08:08] VITALS: BP 111/58; PULSE 61; RESP 16; TEMP 98.9; O2SAT 96
[2016-12-08] MEDS: SODIUM CHLORIDE 0.9% FLUSH 10 ML FLUSH IV FLUSH SCH (09:00)
[2016-12-08] MEDS: DOCUSATE SODIUM 50 MG/SENNA 8.6 MG TAB PO SCH (09:00)
[2016-12-08] MEDS: POTASSIUM CHLORIDE 10 MEQ CONTROLLED RELEASE TAB PO SCH (09:45)
--- NOTE | 2016-12-08 10:29 | HHI.PR ---
Subjective History of Present Illness Patient feel weak and tired have jaundice GI input noted LFTs noted.GI was ok to discharge patient today. ok to DC Home today Review of Systems Constitutional Constitutional: Fatigue, Weakness Eyes Eyes Remarks yellow sclera. GI/Abdomen GI/Abdominal Exam: Abdominal Pain Integumentary Skin Remarks Yellow discoloration of skin. Vitals/Results Vital Signs Vital Signs Date Time Temp Pulse Resp B/P (MAP) Pulse Ox O2 Delivery O2 Flow Rate FiO2 12/08/16 08:08 98.9 61 16 111/58 (75) 96 12/08/16 04:00 98.7 70 18 113/64 (80) 96 12/08/16 04:00 Room Air 12/08/16 00:00 98.8 72 18 124/76 (92) 97 12/08/16 00:00 Room Air 12/07/16 20:00 Room Air 12/07/16 20:00 98.1 77 18 133/68 (89) 98 12/07/16 16:08 98.3 71 16 110/60 (77) 98 12/07/16 12:08 97.6 75 16 104/61 (75) 98 CBC/BMP: 12/06/16 0713 12/06/16 0713 Physical Exam General General Appearance: Well Developed, Well Nourished, No Acute Distress, Comfortable Eyes Eye Exam: Pupils Equal, Pupils Reactive, Extraocular Movement Intact Eye Remarks Yellow sclera. Ears & Nose Ears & Nose Exam: Nasal Mucosa [place] Throat Throat Exam: Oral Mucosa [place] & Moist, Oral Pharynx Normal Neck Neck Exam: Neck Supple, Trachea Midline Pulmonary Resp Exam: Clear Bilaterally, Breath Sounds Equal Cardiology CV Exam: Regular, Normal Sinus Rhythm, Good Perfusion Gastrointestinal/Abdomen GI Exam: Soft, Bowel Sounds Present GI Remarks mild right upper quadrant tenderness. Musculoskeletal MS Exam: Joints Intact Integumentary Skin Exam: Warm, Dry, Jaundice Skin Remarks yellow discoloration of skin. Extremeties Extremities Exam: No Edema Neurologic Neuro Exam: Alert, Awake, Oriented, Speech Clear, Moving All Extremities, No Focal Deficits Psychiatric Psych Exam: Appropriate Responses VTE Prophylaxis VTE Prophylaxis Device: SCDs Assessment/Plan Assessment/Plan Assessment/Plan Admission Diagnosis (1) Acute LFTs abnormal secondary to acute hepatitis B Infection. (2) Asthma (3) Hypertension (4) Coronary artery disease (5) Incomplete getting pelvic ultrasound (6) FEN/PX (7) Drug Abuse Urine tox screen positive for mirijuana. ( 8) Anemia. Plan: Mild Diffuse abdominal pain, high LFTs, and spontaneous . LFTs on admission: (11/18): 1179/961 Alk Phos: 263 Total bilirubin: 9.7 LFTs at last visit/missed ab dx (10/31): 418/711 Alk phos: 264 Total bilirubin: 1.3 As per record in 2012 LFT's were normal : Alk phos: 204 Total Bili: 0.4 LFTs trend down. PLAN - GI input noted. - f/u GI recs for imaging - UDS positive for Mirjuana - acetaminophen level noted - f/u hepatitis panel - NO TYLENOL - motrin PRN for pain - benadryl PRN for itching (2) Asthma ICD Codes: J45.909 - Unspecified asthma, uncomplicated Status: Chronic Plan: albuterol PRN (3) Hypertension ICD Codes: I10 - Essential (primary) hypertension Status: Chronic Plan: Controlled with labetalol TID during per patient - pt not currently taking - f/u BPs on morphine for abdominal pain / Cramp. Hypokalemia resolved. ok to discharge home today. f/u with PCP/ GI 1 week. Discussed Condition with: Patient Prasanna Liriano MD Dec 08, 2016 10:29
[2016-12-08] MEDS ORDERED: PROM25TA10 PO (10:33)
[2016-12-08] MEDS ORDERED: OXYC-392 PO (10:33)
[2016-12-08 12:35] LABS: BETA HCG QUANT 211 MIU/ML (0-5)
--- NOTE | 2016-12-08 17:06 | MD ---
cc: PRASANNA BHAKTA MD ADMISSION DATE: 11/18/2016 DISCHARGE DATE: 12/08/2016 Okay to discharge patient. Condition at the time of discharge satisfactory. Activity as tolerated. Diet, cardiac diet. ALLERGIES MEPERIDINE, TRAMADOL. DISCHARGE MEDICATIONS Include: 1. Oxycodone 5 mg p.o. q.6h p.r.n. pain. 2. Promethazine 12.5 mg p.o. q.6h p.r.n. nausea, vomiting. The patient advised to do CBC, hepatic function panel and PT/INR in 3-5 days and follow up with GI. The patient advised was to follow with PCP in two days, Dr. Prasanna Bhakta. ADMISSION DIAGNOSIS 1. Acute hepatitis B. 2. Abdominal pain secondary to acute hepatitis B, liver area pain. 3. Anemia. 4. Hypokalemia, which has resolved. 5. . The patient got methotrexate and after that beta-hCG declined, it dropped from 8483-9242, 900 and then 500. His hypokalemia which resolved his anemia. H&H monitored during hospital stay. Alkaline phosphatase became normal at the time of discharge but AST was 405 at the time of discharge and ALT 301 at the time of discharge. Bilirubin was 15.5 at the time of discharge. Initially AST was 1179, ALT was 961 and alkaline phosphatase was 263 and total bilirubin was 9.5. The patient also had mild hyponatremia which has resolved. The patient's beta-hCG initially was 1431 and keep dropping down. FINANCIAL ASSISTANCE ADVISOR saw the patient during hospital stay. LFTs monitored during hospital stay. HOSPITAL COURSE This is a 41-year-olg female admitted with threatened /miscarriage and then also admitted for acute hepatitis B, had high LFTs. The patient had a pelvic ultrasound done which showed finding most characteristic of in progress. Gallbladder ultrasound done shows large akinetic liver consistent with hepatic steatosis versus medical liver disease. Gallbladder is contracted which the gallbladder wall, however, there is a diffuse gallbladder wall thickening with no pericholecystic fluid, stone or sonographic Villegas sign. Gallbladder wall thickening is commonly seen in patients with underlying liver disease. If there is significant continued clinical concern a HIDA scan may be performed to evaluate for cystic duct patency. Another pelvic ultrasound was done on November 25, findings characteristic of in progress with irregular gestational sac and products of conception in the lower uterine segment. And another pelvic ultrasound done on 12/03/2016 shows persistent complex mass in the lower uterine segment considering a significant drop in beta-hCG, incomplete with the retained products should be considered. A small amount of fluid in the cul-de-sac. Stable ovaries ____ adnexal region. The patient discharged in satisfactory condition. Advised to follow with PCP, GI and infectious disease doctor. Further detail in the medical record. Prasanna Bhakta MD EA/SAJAN /10:35 AM /4:29 PM
== END 2016-12-08 14:35 | disposition home or self-care (01) | DRG 779 ==
LOC: NEPE 11:13 → NEDA 15:16 → OBSVTOIN 16:50 → HOCA 17:46 → N04B 12-05 17:45
PROVIDERS: ADMIT Family Medicine; ATTEND Family Medicine
DX: O03.4 Incomplete spontaneous abortion without complication (principal); I10 Essential (primary) hypertension; B16.9 Acute hepatitis B without delta-agent and without hepatic coma; O00.80 Other ectopic pregnancy without intrauterine pregnancy; E87.1 Hypo-osmolality and hyponatremia; E87.6 Hypokalemia; I25.10 Atherosclerotic heart disease of native coronary artery without angina pectoris; J44.9 Chronic obstructive pulmonary disease, unspecified; F12.90 Cannabis use, unspecified, uncomplicated; E78.00 Pure hypercholesterolemia, unspecified; K58.9 Irritable bowel syndrome, unspecified; Z86.32 Personal history of gestational diabetes; Z87.891 Personal history of nicotine dependence; L29.9 Pruritus, unspecified
CPT/HCPCS: 76700; 76705; 76817; 76937; 80053; 80061; 80074; 80076; 80307; 81001; 82103; 82105; 82140; 82247; 82248; 82390; 82728; 83520; 83540; 83550; 83690; 83735; 84443; 84702; 85007; 85025; 85027; 85610; 85730; 86038; 86255; 86308; 87350; 87389; 87517; 90384; 99285; G0481; J1200; J2270; J2405; J2790; J3480; J7030; J9250; Q0169

== ENCOUNTER 2017-02-10 09:17 | Emergency (ER) | payer OTHER ==
[~2017-02-10] VITALS: Ht 162.6 cm; Wt 70.0 kg
[~2017-02-10 09:17] MED LIST changes: -IBUP-238 PO; -PERC5TAB12 PO; -PRENTAB72 PO; +PROM25TA10 PO; -RANI150C PO; -SENN1TAB11 PO
[2017-02-10 09:18] VITALS: BP 162/91; PULSE 81; RESP 14; TEMP 98.4; O2SAT 99
[2017-02-10 10:18] LABS: BACTERIA, URINE OCC /hpf; BILIRUBIN, URINE NEG (NEG); BLOOD, URINE LARGE (NEG); GLUCOSE,URINE NEG (NEG); KETONE, URINE NEG (NEG); MUCUS URINE FEW /lpf (OCC); NITRITE,URINE NEG (NEG); SQUAMOUS EPITHELIAL CELL URINE 3 /hpf (0-5); URINE COLOR YELLOW (YELLW/STRAW); URINE LEUKOCYTE ESTERASE NEG (NEG)
--- NOTE | 2017-02-10 10:43 | PD ---
HPI Chief Complaint: Bleeding Time Seen by Provider: 09:41 Travel History International Travel<30 days: No Contact w/Intl Traveler<30days: No Traveled to known affect area: No History of Present Illness HPI patient 41-year-old female presents emergency department for evaluation of vaginal bleeding. Patient states that she had a cervical ectopic approximately a month ago, she states she's been having a steady trickle since then but today had a gush of blood. No dizziness no weakness. No discharge. No clots. She does endorse some suprapubic discomfort. PFSH Past Medical History Arthritis: Yes Asthma: Yes Autoimmune Disease: No Cardiovascular Problems: Yes High Cholesterol: Yes COPD: Yes Coronary Artery Disease: Yes Diminished Hearing: No Gastrointestinal Disorders: Yes (GASTRITIS, IBS) Genitourinary: No Hypertension: Yes Respiratory: Yes Immunizations Current: Yes Thyroid Disease: Yes (hyper) Ulcer: Yes ?: Not LMP: CURRENT : 0 Past Surgical History Body Medical Devices: ibs, ovarian cysts, Section: Yes Ear Surgery: Yes (AT THE AGE OF 8, TUBES PLACED BILATERALLY) Pacemaker: No Tonsillectomy: Yes Tympanostomy Tube: Yes Social History Alcohol Use: No Tobacco Use: No (former smoker) Substance Use: No Allergies-Medications (Allergen,Severity, Reaction): Coded Allergies: meperidine (Unverified Allergy, Severe, Nausea/Vomiting, 02/11/17) tramadol (Unverified Allergy, Severe, Nausea/Vomiting, 02/11/17) RASH Reported Meds & Prescriptions Reported Meds & Active Scripts Active Phenergan (Promethazine HCl) 25 Mg Tablet 12.5 Mg PO Q6H PRN Review of Systems Except as stated in HPI: all other systems reviewed are Neg Physical Exam Narrative GENERAL: Well-developed well-nourished no obvious distress. SKIN: Warm and dry. HEAD: Atraumatic. Normocephalic. EYES: Pupils equal and round. No scleral icterus. No injection or drainage. ENT: No nasal bleeding or discharge. Mucous membranes pink and moist. NECK: Trachea midline. No JVD. CARDIOVASCULAR: Regular rate and rhythm. RESPIRATORY: No accessory muscle use. Clear to auscultation. Breath sounds equal bilaterally. GASTROINTESTINAL: Abdomen soft, non-tender, nondistended. Hepatic and splenic margins not palpable. GENITOURINARY: Grossly normal external female genitalia, no cervical motion tenderness no bimanual tenderness, scant blood in the vaginal vault, cervix is closed. Exam was performed with female nurse aboriginal education worker coordinator present all times MUSCULOSKELETAL: Extremities without clubbing, cyanosis, or edema. No obvious deformities. NEUROLOGICAL: Awake and alert. No obvious cranial nerve deficits. Motor grossly within normal limits. Five out of 5 muscle strength in the arms and legs. Normal speech. PSYCHIATRIC: Appropriate mood and affect; insight and judgment normal. Data Data Last Documented VS Orders Orders Urinalysis - C+S If Indicated (02/10/17 09:41) Ed Urine Pregnancytest Poc (02/10/17 09:41) Urine Culture (02/10/17 09:45) Complete Blood Count With Diff (02/10/17 10:43) Ed Discharge Order (02/10/17 11:48) Labs Laboratory Tests Test 02/10/17 09:45 02/10/17 10:50 Urine Color YELLOW Urine Turbidity HAZY Urine pH 7.0 Urine Specific [place] 1.009 Urine Protein TRACE mg/dL Urine Glucose (UA) NEG mg/dL Urine Ketones NEG mg/dL Urine Occult Blood LARGE Urine Nitrite NEG Urine Bilirubin NEG Urine Urobilinogen LESS THAN 2.0 MG/DL Urine Leukocyte Esterase NEG Urine RBC /hpf Urine WBC 10 /hpf Urine Squamous Epithelial Cells 3 /hpf Urine Bacteria OCC /hpf Urine Mucus FEW /lpf Microscopic Urinalysis Comment CULTURE INDICATED White Blood Count 9.8 TH/MM3 Red Blood Count 4.10 MIL/MM3 Hemoglobin 10.2 GM/DL Hematocrit 31.6 % Mean Corpuscular Volume 77.1 FL Mean Corpuscular Hemoglobin 24.9 PG Mean Corpuscular Hemoglobin Concent 32.4 % Red Cell Distribution Width 15.5 % Platelet Count 240 TH/MM3 Mean Platelet Volume 8.0 FL Neutrophils (%) (Auto) 63.1 % Lymphocytes (%) (Auto) 22.4 % Monocytes (%) (Auto) 12.7 % Eosinophils (%) (Auto) 1.0 % Basophils (%) (Auto) 0.8 % Neutrophils # (Auto) 6.2 TH/MM3 Lymphocytes # (Auto) 2.2 TH/MM3 Monocytes # (Auto) 1.2 TH/MM3 Eosinophils # (Auto) 0.1 TH/MM3 Basophils # (Auto) 0.1 TH/MM3 CBC Comment DIFF FINAL Differential Comment MDM Medical Decision Making Medical Screen Exam Complete: Yes Emergency Medical Condition: Yes Differential Diagnosis , ectopic , return of normal periods, endometriosis, acute abdomen unlikely. Narrative Course Patient roomed in emergency department, she appears well and in no obvious distress, pelvic exam reassuring. test negative. Only minimal anemic with hemoglobin of 10.2, urine is highly contaminated but will be sent for culture she's not had any symptoms. Discussed with the patient that I'm giving strong consideration to this being return of her normal cycle after ectopic . She's had a few other cycles but is not become regular yet. Either way she is stable for discharge at this time. Discussed symptomatically management returned ED criteria follow-up with an UROLOGIST MD. Diagnosis Primary Impression: DUB (dysfunctional uterine bleeding) Disposition: 01 DISCHARGE HOME Condition: Stable Sean Cárdenas MD Feb 10, 2017 10:43
[2017-02-10 11:02] LABS: AUTOMATED NEUTROPHIL # 6.2 TH/MM3 (1.8-7.7); BASOPHIL # 0.1 TH/MM3 (0-0.2); BASOPHIL % 0.8 % (0.0-2.0); EOSINOPHIL # 0.1 TH/MM3 (0-0.4); HEMATOCRIT 31.6 % (35.0-46.0); HEMOGLOBIN 10.2 GM/DL (11.6-15.3); LYMPH % 22.4 % (9.0-44.0); LYMPHOCYTE # 2.2 TH/MM3 (1.0-4.8); MEAN CELL VOLUME 77.1 FL (80.0-100.0); MEAN CORPUSCULAR HEMOGLOBIN 24.9 PG (27.0-34.0); MEAN CORPUSCULAR HGB CONC 32.4 % (32.0-36.0); MONO % 12.7 % (0.0-8.0); MONOCYTE # 1.2 TH/MM3 (0-0.9); NEUT % 63.1 % (16.0-70.0); PLATELET COUNT 240 TH/MM3 (150-450); RED CELL DISTRIBUTION WIDTH 15.5 % (11.6-17.2); WHITE BLOOD COUNT 9.8 TH/MM3 (4.0-11.0)
[2017-02-10 13:02] VITALS: BP 128/72
[2017-02-26] MEDS ORDERED: ATOR10TA15 PO (09:42)
[2017-02-26] MEDS ORDERED: ATEN25TA PO (09:42)
[2017-02-26] MEDS ORDERED: LEVO1IUD4 I-UTERINE (09:42)
== END 2017-02-10 13:03 | disposition home or self-care (01) ==
LOC: NEPC 09:17
DX: N93.8 Other specified abnormal uterine and vaginal bleeding (principal); Z87.891 Personal history of nicotine dependence
CPT/HCPCS: 81001; 84703; 85025; 87086; 99284